=== PATIENT | male | born 1935 | race Caucasian/White ===

== ENCOUNTER → 2016-12-15 | Outpatient (CLI) | payer MEDICARE, OTHER ==
[~2016-12-15] MED LIST: AMBI5TAB PO; AMLO5 PO; ASPI1TAB69 PO; CARD8TAB2 PO; CIPR-9 PO; CLIN1CAP6 PO; LACTCAP8 PO; LATA.005%O EACH EYE; LOTE20TA PO; OMEG600C2; SODI325T PO
[2016-12-15 12:45] LABS: AUTOMATED NEUTROPHIL # 3.9 TH/MM3 (1.8-7.7); BASOPHIL # 0.1 TH/MM3 (0-0.2); BASOPHIL % 1.1 % (0.0-2.0); EOSINOPHIL # 0.3 TH/MM3 (0-0.4); HEMATOCRIT 28.4 % (39.0-51.0); HEMO FLAGS DIFF FINAL; LYMPH % 20.6 % (9.0-44.0); LYMPHOCYTE # 1.2 TH/MM3 (1.0-4.8); MEAN CELL VOLUME 85.3 FL (80.0-100.0); MEAN CORPUSCULAR HEMOGLOBIN 29.7 PG (27.0-34.0); MEAN CORPUSCULAR HGB CONC 34.8 % (32.0-36.0); MONO % 6.5 % (0.0-8.0); NEUT % 66.8 % (16.0-70.0); PLATELET COUNT 200 TH/MM3 (150-450); RED BLOOD COUNT 3.33 MIL/MM3 (4.50-5.90); RED CELL DISTRIBUTION WIDTH 15.5 % (11.6-17.2); WHITE BLOOD COUNT 5.8 TH/MM3 (4.0-11.0)
[2016-12-15 13:15] LABS: ALKALINE PHOSPHATASE 84 U/L (45-117); ALT (GPT) 14 U/L (12-78); ANION GAP 10 MEQ/L (5-15); AST (GOT) 8 U/L (15-37); BICARBONATE 27.5 MEQ/L (21.0-32.0); BLOOD UREA NITROGEN 39 MG/DL (7-18); CHLORIDE 104 MEQ/L (98-107); GLOMERULAR FILTRATION RATE 17 ML/MIN (>89); GLUCOSE,FASTING 133 MG/DL (74-99); POTASSIUM 4.1 MEQ/L (3.5-5.1); SODIUM (NA) 141 MEQ/L (136-145); TOTAL BILIRUBIN ADULT 0.8 MG/DL (0.2-1.0)
[2016-12-15 16:17] LABS: HEMOGLOBIN A1b 0.9 %; HEMOGLOBIN Ao 84.8 %; HEMOGLOBIN F 1.1 %; HEMOGLOBIN LA1C 2.5 %; HEMOGLOBIN P3 5.4 %
== END ==
LOC: PLAB 11:23
PROVIDERS: ATTEND Family Medicine
DX: K80.20 Calculus of gallbladder without cholecystitis without obstruction (principal); I12.9 Hypertensive chronic kidney disease with stage 1 through stage 4 chronic kidney disease, or unspecified chronic kidney disease; N18.4 Chronic kidney disease, stage 4 (severe); K21.9 Gastro-esophageal reflux disease without esophagitis; N13.30 Unspecified hydronephrosis; R73.01 Impaired fasting glucose
CPT/HCPCS: 36415; 80053; 83036; 83695; 84443; 85025

== ENCOUNTER → 2017-01-07 | Outpatient (CLI) | payer MEDICARE, OTHER ==
[2017-01-07 09:05] LABS: BACTERIA, URINE MOD /hpf; BLOOD, URINE MOD (NEG); COMMENT (UR) CULTURE INDICATED; CULTURE IF INDICATED CULTURE INDICATED; GLUCOSE,URINE NEG (NEG); KETONE, URINE NEG (NEG); MUCUS URINE FEW /lpf (OCC); NITRITE,URINE NEG (NEG); PH, URINE 7.5 (5.0-8.5); SQUAMOUS EPITHELIAL CELL URINE 5 /hpf (0-5); URINE COLOR YELLOW (YELLW/STRAW)
[2017-01-07 09:08] LABS: AUTOMATED NEUTROPHIL # 3.9 TH/MM3 (1.8-7.7); BASOPHIL # 0.1 TH/MM3 (0-0.2); BASOPHIL % 1.1 % (0.0-2.0); EOSINOPHIL # 0.3 TH/MM3 (0-0.4); EOSINOPHIL % 4.6 % (0.0-4.0); HEMATOCRIT 27.7 % (39.0-51.0); HEMO FLAGS DIFF FINAL; LYMPH % 21.4 % (9.0-44.0); LYMPHOCYTE # 1.3 TH/MM3 (1.0-4.8); MEAN CELL VOLUME 88.4 FL (80.0-100.0); MEAN CORPUSCULAR HEMOGLOBIN 30.2 PG (27.0-34.0); MEAN CORPUSCULAR HGB CONC 34.2 % (32.0-36.0); MONO % 7.8 % (0.0-8.0); NEUT % 65.1 % (16.0-70.0); PLATELET COUNT 148 TH/MM3 (150-450); RED BLOOD COUNT 3.14 MIL/MM3 (4.50-5.90); RED CELL DISTRIBUTION WIDTH 16.5 % (11.6-17.2)
[2017-01-07 09:29] LABS: ANION GAP 9 MEQ/L (5-15); BICARBONATE 25.9 MEQ/L (21.0-32.0); BLOOD UREA NITROGEN 40 MG/DL (7-18); CHLORIDE 107 MEQ/L (98-107); FERRITIN 144 NG/ML (26-388); GLOMERULAR FILTRATION RATE 16 ML/MIN (>89); GLUCOSE,FASTING 117 MG/DL (74-99); POTASSIUM 4.3 MEQ/L (3.5-5.1); SODIUM (NA) 142 MEQ/L (136-145); TRANSFERRIN IRON PROFILE 189 MG/DL (200-360)
== END ==
LOC: PLAB 06:56
PROVIDERS: ATTEND Internal Medicine Nephrology
DX: E55.9 Vitamin D deficiency, unspecified (principal); N18.4 Chronic kidney disease, stage 4 (severe); D63.1 Anemia in chronic kidney disease; N39.0 Urinary tract infection, site not specified; B96.4 Proteus (mirabilis) (morganii) as the cause of diseases classified elsewhere
CPT/HCPCS: 36415; 80069; 81001; 82306; 82728; 83540; 83550; 83970; 85025; 87077; 87086; 87186

== ENCOUNTER 2017-01-22 23:21 | Inpatient (IN) | payer MEDICARE, OTHER ==
[~2017-01-22] VITALS: Ht 182.9 cm; Wt 90.0 kg
[~2017-01-22 23:21] MED LIST changes: -CIPR-9 PO
[2017-01-22 23:23] VITALS: BP 190/91; PULSE 90; RESP 18; TEMP 99.8; O2SAT 98
[2017-01-22] MEDS ORDERED: SODIUM CHLOR 0.9% 1000 ML INJ 1,000 ML IV SCH (23:35)
[2017-01-22 23:38] VITALS: O2SAT 97
--- NOTE | 2017-01-22 23:43 | PD ---
HPI Chief Complaint: Complaint Time Seen by Provider: 23:27 Travel History International Travel<30 days: No Contact w/Intl Traveler<30days: No Traveled to known affect area: No History of Present Illness HPI The patient is a 81-year-old male who presents emergency department for left mid back pain and left flank pain or last several days. 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 The patient states he had a stent replaced approximately one and a half years ago here at [place] and then had his stents replaced 4 months ago by a urologist on an outpatient basis, Dr. Marie. The patient states over the last several days he's had increasing left mid back pain that radiates to the left flank, however, continues to pass urine without difficulty. The patient recently had outpatient blood work and noted that his GFR and creatinine had worsened, signifying possible renal failure. The patient has been followed by his capacity planning engineer, Dr. Jha, and was advised she may need dialysis in the future. The patient does complain of mild nausea associated with this pain but denies any vomiting or or anterior abdominal pain. He does complain of cloudy urine without any visible hematuria. Patient was treated with antibiotics 2 weeks ago for UTI, however, cannot recall the name. The patient's primary physician is Dr. Jarvis. [facility] Past Medical History Hx Anticoagulant Therapy: Yes Arthritis: Yes Heart Rhythm Problems: No Cancer: Yes (prostate) Cardiovascular Problems: Yes High Cholesterol: No Congestive Heart Failure: No Diabetes: No Diminished Hearing: No Endocrine: No Gastrointestinal Disorders: Yes GERD: Yes Glaucoma: No Genitourinary: Yes Hepatitis: No Hiatal Hernia: Yes Heparin Induced Thrombocytopen: No Hypertension: Yes Immune Disorder: No Inguinal Hernia: Yes (REPAIRED IN 2001.) Implanted Vascular Access Dvce: Yes Musculoskeletal: Yes Neurologic: No Psychiatric: No Reproductive: No Respiratory: Yes (sleep apnea) Renal Failure: Yes (RENAL INSUFF.) Sleep Apnea: Yes (CPAP) Thyroid Disease: No PNEUMOCCOCAL Vaccine (Year): 1 Past Surgical History Abdominal Surgery: Yes (HERNIA REPAIR) Body Medical Devices: artificial sphincter, stents in kidneys Coronary Artery Bypass Graft: No Genitourinary Surgery: Yes (prostatectomy,urniary stent placed several times) Oral Surgery: Yes (uvulectomy) Prostatectomy: Yes (2000) Tonsillectomy: Yes Other Surgery: Yes (shunt lue 10/09/16) Social History Alcohol Use: No Tobacco Use: No (quit long time ago ) Substance Use: No Allergies-Medications (Allergen,Severity, Reaction): Coded Allergies: Sulfa (Verified Allergy, Severe, Nausea/Vomiting, 01/22/17) *MDRO Multi-Drug Resistant Organism (Verified Adverse Reaction, Unknown, ) 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; (blood & urine) - 04/2016 Reported Meds & Prescriptions Reported Meds & Active Scripts Active Probiotic (Lactobacillus Acidophilus) 1 Cap Cap 1 Cap PO TIDAC Clindamycin (Clindamycin HCl) 300 Mg Cap 300 Mg PO Q6H 10 Days Reported Sodium Bicarbonate 325 Mg Tab 325 Mg PO DAILY Xalatan Opth Drops (Latanoprost) 0.005% Drops 1 Drop EACH EYE HS Fish Oil 600 mg ([place]-3 Fatty Acids) 1 Cap Cap DAILY Cardura (Doxazosin Mesylate) 8 Mg Tab 8 Mg PO DAILY Lotensin (Benazepril HCl) 20 Mg Tab 20 Mg PO DAILY Aspirin 81 Mg Tabdr 81 Mg PO DAILY Norvasc (Amlodipine Besylate) 5 Mg Tab 5 Mg PO DAILY Review of Systems Except as stated in HPI: all other systems reviewed are Neg General / Constitutional: No: Fever Cardiovascular: No: Chest Pain or Discomfort Respiratory: No: Shortness of Breath Gastrointestinal: Positive: Nausea, No: Vomiting, Diarrhea, Abdominal Pain Genitourinary: Positive: Flank Pain, No: Dysuria, Decreased Urinary Output Musculoskeletal: No: Weakness Skin: Positive Rash (history of psoriasis) Physical Exam Narrative GENERAL: Awake, alert, nontoxic-appearing 81-year-old male who appears his stated age and is in no acute respiratory distress. SKIN: Warm and dry. Excoriated rash over the left flank. HEAD: Atraumatic. Normocephalic. EYES: No injection or drainage. ENT: No nasal bleeding or discharge. Mucous membranes pink and moist. NECK: Trachea midline. No JVD. CARDIOVASCULAR: Regular, tachycardic with a heart rate of 102. RESPIRATORY: No accessory muscle use. Clear to auscultation. Breath sounds equal bilaterally. GASTROINTESTINAL: Abdomen soft, non-tender, nondistended. No rebound tenderness. Back: Positive for left CVA tenderness. MUSCULOSKELETAL: No obvious deformities. No clubbing. No cyanosis. No edema. NEUROLOGICAL: Awake and alert. No obvious cranial nerve deficits. Motor grossly within normal limits. Normal speech. PSYCHIATRIC: Appropriate mood and affect; insight and judgment normal. Data Data Last Documented VS Vital Signs Date Time Temp Pulse Resp B/P Pulse Ox O2 Delivery O2 Flow Rate FiO2 01/23/17 00:36 83 18 153/70 97 01/22/17 23:38 Room Air 01/22/17 23:23 99.8 Orders Complete Blood Count With Diff (01/22/17 23:35) Comprehensive Metabolic Panel (01/22/17 23:35) Lipase (01/22/17 23:35) Lactic Acid (01/22/17 23:35) Urinalysis - C+S If Indicated (01/22/17 23:35) Ct Abd/Pel W/O Iv Contrast (01/22/17 23:35) Iv Access Insert/Monitor (01/22/17 23:35) Ecg Monitoring (01/22/17 23:35) Oximetry (01/22/17 23:35) Morphine Inj (Morphine Inj) (01/22/17 23:45) Ondansetron Inj (Zofran Inj) (01/22/17 23:45) Sodium Chlor 0.9% 1000 Ml Inj (Ns 1000 M (01/22/17 23:35) Sodium Chloride 0.9% Flush (Ns Flush) (01/22/17 23:45) Urine Culture (01/22/17 23:45) Cefepime Inj (Maxipime Inj) (01/23/17 00:45) Admit Order (Ed Use Only) (01/23/17 01:02) Blood Culture (01/23/17 01:02) Labs Laboratory Tests Test 01/22/17 23:45 White Blood Count 9.5 TH/MM3 Red Blood Count 3.52 MIL/MM3 Hemoglobin 10.5 GM/DL Hematocrit 30.6 % Mean Corpuscular Volume 86.9 FL Mean Corpuscular Hemoglobin 29.9 PG Mean Corpuscular Hemoglobin 34.4 % Concent Red Cell Distribution Width 16.5 % Platelet Count 163 TH/MM3 Mean Platelet Volume 7.6 FL Neutrophils (%) (Auto) 71.2 % Lymphocytes (%) (Auto) 20.4 % Monocytes (%) (Auto) 4.9 % Eosinophils (%) (Auto) 2.6 % Basophils (%) (Auto) 0.9 % Neutrophils # (Auto) 6.8 TH/MM3 Lymphocytes # (Auto) 1.9 TH/MM3 Monocytes # (Auto) 0.5 TH/MM3 Eosinophils # (Auto) 0.3 TH/MM3 Basophils # (Auto) 0.1 TH/MM3 CBC Comment DIFF FINAL Differential Comment Urine Color LIGHT-YELLOW Urine Turbidity HAZY Urine pH 7.0 Urine Specific [place] 1.010 Urine Protein 30 mg/dL Urine Glucose (UA) NEG mg/dL Urine Ketones NEG mg/dL Urine Occult Blood TRACE Urine Nitrite NEG Urine Bilirubin NEG Urine Urobilinogen LESS THAN 2.0 MG/DL Urine Leukocyte Esterase LARGE Urine RBC 5 /hpf Urine WBC /hpf Urine Squamous Epithelial <1 /hpf Cells Urine Transitional Epithelial <1 /hpf Cells Microscopic Urinalysis Comment CULTURE INDICATED Sodium Level 142 MEQ/L Potassium Level 4.1 MEQ/L Chloride Level 109 MEQ/L Carbon Dioxide Level 23.8 MEQ/L Anion Gap 9 MEQ/L Blood Urea Nitrogen 38 MG/DL Creatinine 3.22 MG/DL Estimat Glomerular Filtration 19 ML/MIN Rate Random Glucose 123 MG/DL Lactic Acid Level 0.9 mmol/L Calcium Level 8.9 MG/DL Total Bilirubin 0.7 MG/DL Aspartate Amino Transf 14 U/L (AST/SGOT) Alanine Aminotransferase 15 U/L (ALT/SGPT) Alkaline Phosphatase 83 U/L Total Protein 7.5 GM/DL Albumin 3.9 GM/DL Lipase 259 U/L [facility] Medical Decision Making Medical Screen Exam Complete: Yes Emergency Medical Condition: Yes Medical Record Reviewed: Yes Interpretation(s) Last Impressions Abdomen/Pelvis CT 01/22/17 0615 Signed Impressions: Service Date/Time: Monday, January 23, 2017 00:23 - CONCLUSION: 1. Cholelithiasis. 2. Severe diverticulosis. 3. Moderate left-sided hydronephrosis and mild right hydronephrosis identified with mild perinephric stranding and fluid on the left. 4. No calculi are seen. Cuate Benson MD Laboratory Tests Test 01/22/17 23:45 White Blood Count 9.5 TH/MM3 Red Blood Count 3.52 MIL/MM3 Hemoglobin 10.5 GM/DL Hematocrit 30.6 % Mean Corpuscular Volume 86.9 FL Mean Corpuscular Hemoglobin 29.9 PG Mean Corpuscular Hemoglobin 34.4 % Concent Red Cell Distribution Width 16.5 % Platelet Count 163 TH/MM3 Mean Platelet Volume 7.6 FL Neutrophils (%) (Auto) 71.2 % Lymphocytes (%) (Auto) 20.4 % Monocytes (%) (Auto) 4.9 % Eosinophils (%) (Auto) 2.6 % Basophils (%) (Auto) 0.9 % Neutrophils # (Auto) 6.8 TH/MM3 Lymphocytes # (Auto) 1.9 TH/MM3 Monocytes # (Auto) 0.5 TH/MM3 Eosinophils # (Auto) 0.3 TH/MM3 Basophils # (Auto) 0.1 TH/MM3 CBC Comment DIFF FINAL Differential Comment Urine Color LIGHT-YELLOW Urine Turbidity HAZY Urine pH 7.0 Urine Specific [place] 1.010 Urine Protein 30 mg/dL Urine Glucose (UA) NEG mg/dL Urine Ketones NEG mg/dL Urine Occult Blood TRACE Urine Nitrite NEG Urine Bilirubin NEG Urine Urobilinogen LESS THAN 2.0 MG/DL Urine Leukocyte Esterase LARGE Urine RBC 5 /hpf Urine WBC /hpf Urine Squamous Epithelial <1 /hpf Cells Urine Transitional Epithelial <1 /hpf Cells Microscopic Urinalysis Comment CULTURE INDICATED Sodium Level 142 MEQ/L Potassium Level 4.1 MEQ/L Chloride Level 109 MEQ/L Carbon Dioxide Level 23.8 MEQ/L Anion Gap 9 MEQ/L Blood Urea Nitrogen 38 MG/DL Creatinine 3.22 MG/DL Estimat Glomerular Filtration 19 ML/MIN Rate Random Glucose 123 MG/DL Lactic Acid Level 0.9 mmol/L Calcium Level 8.9 MG/DL Total Bilirubin 0.7 MG/DL Aspartate Amino Transf 14 U/L (AST/SGOT) Alanine Aminotransferase 15 U/L (ALT/SGPT) Alkaline Phosphatase 83 U/L Total Protein 7.5 GM/DL Albumin 3.9 GM/DL Lipase 259 U/L Differential Diagnosis Differential diagnosis includes obstructive uropathy, complicated urinary tract infection, pyelonephritis, acute on chronic renal failure, dehydration, electrolyte abnormality, nephrolithiasis. Narrative Course IV was established, labs were drawn and sent, and the patient was placed on cardiac telemetry monitoring and continuous pulse oximetry monitoring. The patient was administer morphine, Zofran, and IV fluids for his symptoms. UA was sent to lab. I reviewed the EMR, patient had lab work 3 weeks ago which revealed a GFR of 16 and creatinine at 3.67. The patient's urine culture from 2 weeks ago grew Proteus for years that was resistant to ceftriaxone. The patient's UA reveals innumerable WBCs, he just finished antibiotics last week for UTI, appears to have failed outpatient therapy. Based on patient's previous micro-results, patient was administered cefepime 2 g intravenously. Patient does have chronic renal failure with underlying infection, will be admitted for IV antibiotics and evaluation by nephrology and possible urology as he does have bilateral stents in place. The patient's primary physician is Dr. Jarvis, therefore, [facility]. CT does reveal perinephric standing in the left with hydronephrosis and clearly infected urine. The patient has stents in place, will need IV antibiotics and urology consultation. The patient is comfortable with this plan of care and disposition. Physician Communication Physician Communication [facility]. Diagnosis Primary Impression: Pyelonephritis Additional Impression: Chronic renal failure Qualified Code: N18.9 - Chronic renal failure, unspecified stage Admitting Information Admitting Physician Requests: Admit Condition: Stable David Sawnn MD Jan 22, 2017 23:42
[2017-01-22] MEDS ORDERED: MORPHINE SULFATE 4 MG/ML INJ IV PUSH ONE (23:45)
[2017-01-22] MEDS ORDERED: ONDANSETRON HCL 4 MG/2 ML VIAL IVP ONE (23:45)
[2017-01-22] MEDS ORDERED: SODIUM CHLORIDE 0.9% FLUSH 5 ML FLUSH IVF PRN (23:45)
[2017-01-22 23:58] LABS: AUTOMATED NEUTROPHIL # 6.8 TH/MM3 (1.8-7.7); BASOPHIL # 0.1 TH/MM3 (0-0.2); BASOPHIL % 0.9 % (0.0-2.0); EOSINOPHIL # 0.3 TH/MM3 (0-0.4); EOSINOPHIL % 2.6 % (0.0-4.0); HEMATOCRIT 30.6 % (39.0-51.0); HEMO FLAGS DIFF FINAL; LYMPH % 20.4 % (9.0-44.0); LYMPHOCYTE # 1.9 TH/MM3 (1.0-4.8); MEAN CELL VOLUME 86.9 FL (80.0-100.0); MEAN CORPUSCULAR HEMOGLOBIN 29.9 PG (27.0-34.0); MEAN CORPUSCULAR HGB CONC 34.4 % (32.0-36.0); MONO % 4.9 % (0.0-8.0); NEUT % 71.2 % (16.0-70.0); PLATELET COUNT 163 TH/MM3 (150-450); RED BLOOD COUNT 3.52 MIL/MM3 (4.50-5.90); RED CELL DISTRIBUTION WIDTH 16.5 % (11.6-17.2); WHITE BLOOD COUNT 9.5 TH/MM3 (4.0-11.0)
[2017-01-23 00:16] LABS: BLOOD, URINE TRACE (NEG); COMMENT (UR) CULTURE INDICATED; CULTURE IF INDICATED CULTURE INDICATED; GLUCOSE,URINE NEG (NEG); KETONE, URINE NEG (NEG); NITRITE,URINE NEG (NEG); SQUAMOUS EPITHELIAL CELL URINE <1 /hpf (0-5); TRANSITIONAL EPI CELLS, URINE <1 /hpf; URINE COLOR LIGHT-YELLOW (YELLW/STRAW)
[2017-01-23 00:20] LABS: ALT (GPT) 15 U/L (12-78); ANION GAP 9 MEQ/L (5-15); AST (GOT) 14 U/L (15-37); BICARBONATE 23.8 MEQ/L (21.0-32.0); BLOOD UREA NITROGEN 38 MG/DL (7-18); CHLORIDE 109 MEQ/L (98-107); GLOMERULAR FILTRATION RATE 19 ML/MIN (>89); POTASSIUM 4.1 MEQ/L (3.5-5.1); SODIUM (NA) 142 MEQ/L (136-145)
[2017-01-23 00:22] LABS: ALKALINE PHOSPHATASE 83 U/L (45-117); TOTAL BILIRUBIN ADULT 0.7 MG/DL (0.2-1.0)
[2017-01-23 00:36] VITALS: BP 153/70; PULSE 83; RESP 18; O2SAT 97
[2017-01-23] MEDS ORDERED: CEFEPIME INJ 2,000 MG in SODIUM CHLORIDE 0.9% INJ 100 ML IV ONE (00:45)
--- NOTE | 2017-01-23 00:45 | RADRPT ---
EXAM DATE/TIME: 01/23/2017 00:23 [place] COMPARISON: CT ABDOMEN & PELVIS W/O CONTRAST, May 13, 2016, 13:16. INDICATIONS : Left flank pain. ORAL CONTRAST: No oral contrast ingested. RADIATION DOSE: 14.61 CTDIvol (mGy) MEDICAL HISTORY : Hydronephrosis. SURGICAL HISTORY : Stents ENCOUNTER: Initial ACUITY: 1 day PAIN SCALE: 8/10 LOCATION: Left flank TECHNIQUE: Volumetric scanning of the abdomen and pelvis was performed. Using automated exposure control and ad justment of the mA and/or kV according to patient size, radiation dose was kept as low as reasonably achievable to obtain optimal diagnostic quality images. FINDINGS: Calcified hepatic and splenic granulomas are noted. A moderate-sized hiatal hernia is present. The ad renal glands are normal. There are bilateral nephroureteral stents present with mild hydroureter bila terally, and the moderate hydronephrosis on the left. There is mild perinephric stranding present on the left. There are no renal calculi identified. No bladder calculi are seen. Atherosclerotic calcifi cations of the aorta and iliac vessels are seen. The pancreas is normal. A penile implantation device is noted with reservoir adjacent to the urinary bladder on the right. There is extensive diverticulo sis of the sigmoid and descending colon as well as transverse and descending colon without diverticul itis. No adenopathy or aneurysm. The gallbladder is filled with stones. Degenerative changes of the s pine are noted. There is scarring at the lung bases. CONCLUSION: 1. Cholelithiasis. 2. Severe diverticulosis. 3. Moderate left-sided hydronephrosis and mild right hydronephrosis identified with mild perinephric stranding and fluid on the left. 4. No calculi are seen. Cuate Benson MD on January 23, 2017 at 0:40 Board Certified Radiologist. This report was verified electronically.
[2017-01-23] MEDS ORDERED: ONDANSETRON HCL 4 MG/2 ML VIAL IVP PRN (01:15)
[2017-01-23] MEDS ORDERED: BISACODYL 10 MG SUPP PR PRN (01:15)
[2017-01-23] MEDS ORDERED: MORPHINE SULFATE 4 MG/ML INJ IV PRN (01:15)
[2017-01-23] MEDS ORDERED: ACETAMINOPHEN 325 MG TAB PO PRN (01:15)
[2017-01-23] MEDS ORDERED: SODIUM CHLORIDE 0.9% FLUSH 5 ML FLUSH FLUSH PRN (01:15)
[2017-01-23] MEDS ORDERED: ACETAMINOPHEN/HYDROcodone 325 MG/5 MG TAB PO PRN (01:15)
--- NOTE | 2017-01-23 01:42 | HHI.HP ---
HPI Service [facility] Primary Care Physician Jeff Jarvis MD Admission Diagnosis pyelonephritis, chronic renal failure, failed outpatient therapy Diagnoses: (1) UTI (urinary tract infection) Diagnosis: Principal (2) Failure of outpatient treatment Diagnosis: Principal (3) Pyelonephritis Diagnosis: Principal (4) Hydronephrosis Diagnosis: Principal (5) CKD (chronic kidney disease) stage 4, GFR 15-29 ml/min Diagnosis: Principal Travel History International Travel<30 Days: No Contact w/Intl Traveler <30 Da: No Traveled to Known Affected Are: No History of Present Illness This is an 81-year-old male with a PMH of HTN, Prostate CA, CKD Stage IV, Obstructive Uropathy s/p Stent and Sleep Apnea who presented to the ER w/ complaints of left flank pain x3-4 days. States symptoms similar to previous episodes of renal stones. S/p Ureteral Stent placement approx 10yrs ago w/ replacement [address] Marie and has been doing well up until 2wks ago. Diagnoses w/ UTI at that time and started on antibiotics, had transient improvement after antibiotics, however has had recurrent and worsening left flank pain x4 days. Denies fever, chills, nausea, vomiting or diarrhea. CT Abd /Pelvis w/ cholelithiasis, diverticulosis, moderate left hydronephrosis and mild right hydronephrosis w/ mild perinephric stranding. Urine Cultures from 01/07/17 +Proteus, Resistant to Rocephin, Sensitive to Cefepime, s/p Cefepime 2gm in ER and Blood Cultures. Follows w/ Dr. Jha w/ Nephrology for CKD. Review of Systems Except as stated in HPI: all other systems reviewed are Neg ROS: 14 point review of systems otherwise negative. Past Family Social History Past Medical History PMH: HTN, Prostate CA, CKD Stage IV, Obstructive Uropathy s/p Stent and Sleep Apnea Past Surgical History PAST SURGICAL HISTORY: Hernia Repair,. 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 No h/o DM or CAD Social History PAST SOCIAL HISTORY: Negative for alcohol, tobacco or drugs. Physical Exam Vital Signs Vital Signs Date Time Temp Pulse Resp B/P Pulse Ox O2 Delivery O2 Flow Rate FiO2 01/23/17 00:36 83 18 153/70 97 01/22/17 23:38 97 Room Air 01/22/17 23:23 99.8 90 18 190/91 98 Physical Exam PE: GENERAL: Pleasant elderly male in no acute distress. HEENT: PERRLA, EOMI. No scleral icterus or conjunctival pallor. No lid lag or facial droop. CARDIOVASCULAR: Regular rate and rhythm. No obvious murmurs to auscultation. No chest tenderness to palpation. RESPIRATORY: No obvious rhonchi or wheezing. Clear to auscultation. Breath sounds equal bilaterally. GASTROINTESTINAL: Abdomen soft, non-tender, nondistended. BS normal. Left flank tenderness MUSCULOSKELETAL: Extremities without clubbing, cyanosis, or edema. No obvious deformities. NEUROLOGICAL: Awake, alert and oriented x4. No focal neurologic deficits. Moving both upper and lower extremities spontaneously. Laboratory Laboratory Tests Test 01/22/17 23:45 White Blood Count 9.5 Red Blood Count 3.52 Hemoglobin 10.5 Hematocrit 30.6 Mean Corpuscular Volume 86.9 Mean Corpuscular Hemoglobin 29.9 Mean Corpuscular Hemoglobin 34.4 Concent Red Cell Distribution Width 16.5 Platelet Count 163 Mean Platelet Volume 7.6 Neutrophils (%) (Auto) 71.2 Lymphocytes (%) (Auto) 20.4 Monocytes (%) (Auto) 4.9 Eosinophils (%) (Auto) 2.6 Basophils (%) (Auto) 0.9 Neutrophils # (Auto) 6.8 Lymphocytes # (Auto) 1.9 Monocytes # (Auto) 0.5 Eosinophils # (Auto) 0.3 Basophils # (Auto) 0.1 CBC Comment DIFF FINAL Differential Comment Urine Color LIGHT-YELLOW Urine Turbidity HAZY Urine pH 7.0 Urine Specific [place] 1.010 Urine Protein 30 Urine Glucose (UA) NEG Urine Ketones NEG Urine Occult Blood TRACE Urine Nitrite NEG Urine Bilirubin NEG Urine Urobilinogen LESS THAN 2.0 Urine Leukocyte Esterase LARGE Urine RBC 5 Urine WBC Urine Squamous Epithelial <1 Cells Urine Transitional Epithelial <1 Cells Microscopic Urinalysis Comment CULTURE INDICATED Sodium Level 142 Potassium Level 4.1 Chloride Level 109 Carbon Dioxide Level 23.8 Anion Gap 9 Blood Urea Nitrogen 38 Creatinine 3.22 Estimat Glomerular Filtration 19 Rate Random Glucose 123 Lactic Acid Level 0.9 Calcium Level 8.9 Total Bilirubin 0.7 Aspartate Amino Transf 14 (AST/SGOT) Alanine Aminotransferase 15 (ALT/SGPT) Alkaline Phosphatase 83 Total Protein 7.5 Albumin 3.9 Lipase 259 Date/Time Procedure Status Source Growth 01/22/17 23:45 Urine Culture Received Urine Clean Catch Pending Result Diagram: 01/22/175 01/22/175 Assessment and Plan Problem List: (1) UTI (urinary tract infection) ICD Code: N39.0 Status: Acute (2) Failure of outpatient treatment ICD Code: Z78.9 Status: Acute (3) Hydronephrosis ICD Code: N13.30 Status: Acute (4) Pyelonephritis ICD Code: N12 Status: Acute (5) CKD (chronic kidney disease) stage 4, GFR 15-29 ml/min ICD Code: N18.4 Status: Acute Assessment and Plan A/P: 1. UTI: U/a w/ UTI, recurrent UTI s/p outpatient antibiotics, failed outpatient therapy. Afebrile, no leukocytosis. S/p Blood/Urine Cultures. S/p Cefepime in ER, will continue w/ IV Abx, IVF for hydration, repeat labs in am. 2. Pyelonephritis: CT Abd/Pelvis w/ perinephric stranding consistent w/ pyelonephritis, images reviewed by me. S/p IV Abx as above, will continue. 3. Hydronephrosis: Bilateral. H/o Obstructive Uropathy s/p Stent Placement and Replacement [address] Marie. Bilateral hydronephrosis on CT. Will consult Dr. Marie for further eval. Afebrile, no leukocytosis. 4. CKD: Stage IV. Follows w/ Dr. Jha as outpatient. Creatinine 3.22, previously 3.67 on 01/07/17. Hold Benazepril/ASA. Repeat labs in am. Consult Nephrology for further recommendations. 5. DVT Prophylaxis: SCD/Teds. 6. Social work for d/c planning as needed. 7. Case discussed w/ ER physician at length. Physician Certification 2 Midnight Certification Type: Admission for Inpatient Services Order for Inpatient Services The services are ordered in accordance with Medicare regulations or non- Medicare payer requirements, as applicable. In the case of services not specified as inpatient-only, they are appropriately provided as inpatient services in accordance with the 2-midnight benchmark. Estimated LOS (days): 2 days is the estimated time the patient will need to remain in the hospital, assuming treatment plan goals are met and no additional complications. Post-Hospital Plan: Not yet determined Ivelisse Fulton MD Jan 23, 2017 01:42
[2017-01-23] MEDS: SODIUM CHLOR 0.9% 1000 ML INJ 1,000 ML IV SCH ×3 (02:04→21:58)
[2017-01-23 04:15] VITALS: BP 147/70; PULSE 87; RESP 18; TEMP 96.9; O2SAT 98
[2017-01-23 08:00] VITALS: BP 142/66; PULSE 85; RESP 14; TEMP 97.5; O2SAT 98
[2017-01-23] MEDS: SODIUM CHLORIDE 0.9% FLUSH 5 ML FLUSH FLUSH SCH ×2 (09:00→21:00)
[2017-01-23] MEDS: amLODIPine BESYLATE 5 MG TAB PO SCH (10:18)
[2017-01-23] MEDS: LACTOBACILLUS ACIDOPHILUS TAB PO SCH ×3 (10:18→18:29)
[2017-01-23] MEDS: DOXAZOSIN MESYLATE 4 MG TAB PO SCH (10:18)
--- NOTE | 2017-01-23 11:25 | PD.CONS ---
HPI Consult Requested By Reason for Consult Chronic kidney disease stage IV Primary Care Physician Jeff Jarvis MD History of Present Illness This patient is an 81-year-old male well-known to me from my office who has a history of known CKD stage IV. Patient was being prepared for dialysis with placement of an AV dialysis fistula. Patient also has a history of recurrent obstructive uropathy and presently has [address] Now presents to the hospital with a history of left flank pain and subsequently has been diagnosed as having a urinary tract infection. CT scan revealed bilateral hydronephrosis mild on the right while moderate on the left with evidence of left-sided perinephric stranding. Urology consultation is currently pending. Patient's baseline creatinine level ranging between 3.0 and 3.5. Patient indicated to me that he was feeling somewhat better admission. 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 History of prostatic CA. Sleep apnea Anemia CKD. Hypertension. Past Surgical History Placement of an upper extremity AV fistula in preparation for dialysis. Multiple cystoscopies with urological procedures. Reported Medications Reported Meds & Active Scripts Active Probiotic (Lactobacillus Acidophilus) 1 Cap Cap 1 Cap PO TIDAC Clindamycin (Clindamycin HCl) 300 Mg Cap 300 Mg PO Q6H 10 Days Reported Sodium Bicarbonate 325 Mg Tab 325 Mg PO DAILY Xalatan Opth Drops (Latanoprost) 0.005% Drops 1 Drop EACH EYE HS Fish Oil 600 mg ([place]-3 Fatty Acids) 1 Cap Cap DAILY Cardura (Doxazosin Mesylate) 8 Mg Tab 8 Mg PO DAILY Lotensin (Benazepril HCl) 20 Mg Tab 20 Mg PO DAILY Aspirin 81 Mg Tabdr 81 Mg PO DAILY Norvasc (Amlodipine Besylate) 5 Mg Tab 5 Mg PO DAILY Active Ordered Medications Current Medications Morphine Sulfate (Morphine Inj) 4 mg ONCE ONCE IV PUSH Last administered on t 23:50; Start 01/22/17 at 23:45; Stop 01/22/17 at 23:46; Status DC Ondansetron HCl 4 mg 4 mg ONCE ONCE IVP Last administered on 01/22/17 23:50; Start 01/22/17 at 23:45; Stop 01/22/17 at 23:46; Status DC Sodium Chloride (NS 1000 ml Inj) 1,000 ml @ 1,000 mls/hr Q1H IV Last administered on 01/22/17 23:50; Start 01/22/17 at 23:35; Stop 01/23/17 at 00:34 ; Status DC IV Flush 2 ml 2 ml UNSCH PRN IVF FLUSH AFTER USING IV ACCESS; Start 01/22/17 at 23:45; Stop 01/23/17 at 01:21; Status DC Cefepime HCl 2000 mg/Sodium Chloride 100 ml @ 200 mls/hr ONCE ONCE IV Last administered on 01/23/17 02:04; Start 01/23/17 at 00:45; Stop 01/23/17 at 01:17 ; Status DC Cefepime HCl 1000 mg/Sodium Chloride 100 ml @ 200 mls/hr Q24H IV ; Start at 01:00 Sodium Chloride (NS 1000 ml Inj) 1,000 ml @ 100 mls/hr Q10H IV Last administered on 01/23/17 10:21; Start 01/23/17 at 01:02 IV Flush (NS Flush) 2 ml UNSCH PRN FLUSH FLUSH AFTER USING IV ACCESS; Start at 01:15 IV Flush (NS Flush) 2 ml BID FLUSH ; Start 01/23/17 at 09:00 Ondansetron HCl (Zofran Inj) 4 mg Q6H PRN IVP NAUSEA OR VOMITING; Start at 01:15 Bisacodyl (Dulcolax Supp) 10 mg DAILY PRN DE CONSTIPATION; Start 01/23/17 at 01 :15 Acetaminophen (Tylenol) 650 mg Q6H PRN PO FEVER/PAIN SCALE 1 TO 2; Start at 01:15 Acetaminophen/ Hydrocodone Bitart ([place] 5-325 Mg) 1 tab Q4H PRN PO PAIN SCALE 3 TO 5; Start 01/23/17 at 01:15 Morphine Sulfate (Morphine Inj) 2 mg Q3H PRN IV Pain 6-10; Start 01/23/17 at 01 :15 Amlodipine Besylate (Norvasc) 5 mg DAILY PO Last administered on 01/23/17 10: 18; Start 01/23/17 at 09:00 Doxazosin Mesylate (Cardura) 8 mg DAILY PO Last administered on 01/23/17 10:18 ; Start 01/23/17 at 09:00 Lactobacillus Acidophilus (Lactinex) 1 tab TIDAC PO Last administered on 10:18; Start 01/23/17 at 08:00 Latanoprost (Xalatan 0.005% Opt Soln) 1 drop HS EACH EYE ; Start 01/23/17 at 21 :00 Family History Noncontributory to current complaint. Social History No history of illicit drug use. Physical Exam Vital Signs Vital Signs Date Time Temp Pulse Resp B/P Pulse Ox O2 Delivery O2 Flow Rate FiO2 01/23/17 08:00 97.5 85 14 142/66 98 01/23/17 04:15 96.9 87 18 147/70 98 01/23/17 00:36 83 18 153/70 97 01/22/17 23:38 97 Room Air 01/22/17 23:23 99.8 90 18 190/91 98 Physical Exam GENERAL: Patient appears to be well-nourished and not in respiratory distress. SKIN: Warm and dry. HEAD: Normocephalic. EYES: No scleral icterus. No injection or drainage. NECK: Supple, trachea midline. No JVD or lymphadenopathy. CARDIOVASCULAR: Regular rate and rhythm without murmurs, gallops, or rubs. RESPIRATORY: Breath sounds equal bilaterally. No accessory muscle use. GASTROINTESTINAL: Abdomen soft, non-tender, nondistended. MUSCULOSKELETAL: No cyanosis, or edema. AV dialysis fistula in has a very good bruit and thrill. Intact. BACK: Nontender without obvious deformity. No CVA tenderness. Laboratory Laboratory Tests Test 01/22/17 23:45 White Blood Count 9.5 Red Blood Count 3.52 Hemoglobin 10.5 Hematocrit 30.6 Mean Corpuscular Volume 86.9 Mean Corpuscular Hemoglobin 29.9 Mean Corpuscular Hemoglobin 34.4 Concent Red Cell Distribution Width 16.5 Platelet Count 163 Mean Platelet Volume 7.6 Neutrophils (%) (Auto) 71.2 Lymphocytes (%) (Auto) 20.4 Monocytes (%) (Auto) 4.9 Eosinophils (%) (Auto) 2.6 Basophils (%) (Auto) 0.9 Neutrophils # (Auto) 6.8 Lymphocytes # (Auto) 1.9 Monocytes # (Auto) 0.5 Eosinophils # (Auto) 0.3 Basophils # (Auto) 0.1 CBC Comment DIFF FINAL Differential Comment Urine Color LIGHT-YELLOW Urine Turbidity HAZY Urine pH 7.0 Urine Specific [place] 1.010 Urine Protein 30 Urine Glucose (UA) NEG Urine Ketones NEG Urine Occult Blood TRACE Urine Nitrite NEG Urine Bilirubin NEG Urine Urobilinogen LESS THAN 2.0 Urine Leukocyte Esterase LARGE Urine RBC 5 Urine WBC Urine Squamous Epithelial <1 Cells Urine Transitional Epithelial <1 Cells Microscopic Urinalysis Comment CULTURE INDICATED Sodium Level 142 Potassium Level 4.1 Chloride Level 109 Carbon Dioxide Level 23.8 Anion Gap 9 Blood Urea Nitrogen 38 Creatinine 3.22 Estimat Glomerular Filtration 19 Rate Random Glucose 123 Lactic Acid Level 0.9 Calcium Level 8.9 Total Bilirubin 0.7 Aspartate Amino Transf 14 (AST/SGOT) Alanine Aminotransferase 15 (ALT/SGPT) Alkaline Phosphatase 83 Total Protein 7.5 Albumin 3.9 Lipase 259 Date/Time Procedure Status Source Growth 01/23/17 01:30 Aerobic Blood Culture Received Blood Peripheral Pending 01/23/17 01:30 Anaerobic Blood Culture Received Blood Peripheral Pending 01/22/17 23:45 Urine Culture Received Urine Clean Catch Pending Result Diagram: 01/22/17 2345 01/22/17 2345 Imaging Last 48 hours Impressions Abdomen/Pelvis CT 01/22/17 2335 Signed Impressions: Service Date/Time: Monday, January 23, 2017 00:23 - CONCLUSION: 1. Cholelithiasis. 2. Severe diverticulosis. 3. Moderate left-sided hydronephrosis and mild right hydronephrosis identified with mild perinephric stranding and fluid on the left. 4. No calculi are seen. Cuate Benson MD Assessment and Plan Problem List: (1) CKD (chronic kidney disease) stage 4, GFR 15-29 ml/min Plan: Despite the fact that the patient appears to have a pyelonephritis with some evidence of hydronephrosis on imaging study his creatinine level is actually at baseline. There is no indication that the patient has presently a significant decline in renal function and there is no indication to initiate dialysis presently. The patient will be seen intermittently during this hospitalization. Management currently is primarily urological. We'll defer antibiotic treatment to primary care physician. Medications should be adjusted for the patient's estimated GFR if clinically indicated. Avoid agents with significant potential for nephrotoxicity possible including NSAIDs for analgesia, iodine contrast agents. Gadolinium is contraindicated if the GFR is below 30. (2) Hypertension Plan: Continue current hypertensive medications. (3) Hydronephrosis Plan: Management per urology. (4) Pyelonephritis Plan: Defer antibiotic therapy to primary care physician. Piyush Jha MD Jan 23, 2017 11:25
[2017-01-23 12:00] VITALS: BP_SYST 137; BP_SYST 190; BP_DIAS 63; BP_DIAS 82; PULSE 94; RESP 16; TEMP 97.2; O2SAT 97
[2017-01-23 16:00] VITALS: BP 143/64; PULSE 86; RESP 16; TEMP 98.7; O2SAT 98
--- NOTE | 2017-01-23 16:59 | HHI.PR ---
Addendum to Inpatient Note Additional Information Patient seen and examined blood pressure elevated, reviewed BMP, creatinine elevated, awaiting urology nephrology consultation Salomon Jackson MD Jan 23, 2017 16:58
[2017-01-23 20:00] VITALS: BP 136/67; PULSE 88; RESP 20; TEMP 98.8; O2SAT 97
[2017-01-23] MEDS: LATANOPROST 0.005% OPHT SOLN 2.5 ML BTL EACH EYE SCH (21:58)
[2017-01-24] VITALS: BP 132/63; PULSE 84; RESP 20; TEMP 99.1; O2SAT 97
[2017-01-24] MEDS: CEFEPIME INJ 1,000 MG in SODIUM CHLORIDE 0.9% INJ 100 ML IV SCH (02:08)
[2017-01-24 04:54] LABS: AUTOMATED NEUTROPHIL # 5.7 TH/MM3 (1.8-7.7); BASOPHIL % 0.6 % (0.0-2.0); EOSINOPHIL # 0.2 TH/MM3 (0-0.4); EOSINOPHIL % 2.3 % (0.0-4.0); HEMATOCRIT 24.6 % (39.0-51.0); HEMO FLAGS DIFF FINAL; LYMPH % 17.9 % (9.0-44.0); LYMPHOCYTE # 1.4 TH/MM3 (1.0-4.8); MEAN CORPUSCULAR HEMOGLOBIN 30.4 PG (27.0-34.0); MEAN CORPUSCULAR HGB CONC 34.6 % (32.0-36.0); MONO % 7.9 % (0.0-8.0); NEUT % 71.3 % (16.0-70.0); PLATELET COUNT 123 TH/MM3 (150-450); RED BLOOD COUNT 2.79 MIL/MM3 (4.50-5.90); RED CELL DISTRIBUTION WIDTH 16.9 % (11.6-17.2)
[2017-01-24 05:17] LABS: ALKALINE PHOSPHATASE 58 U/L (45-117); ALT (GPT) 11 U/L (12-78); ANION GAP 9 MEQ/L (5-15); AST (GOT) 8 U/L (15-37); BICARBONATE 22.1 MEQ/L (21.0-32.0); BLOOD UREA NITROGEN 32 MG/DL (7-18); CHLORIDE 111 MEQ/L (98-107); GLOMERULAR FILTRATION RATE 19 ML/MIN (>89); POTASSIUM 4.1 MEQ/L (3.5-5.1); SODIUM (NA) 142 MEQ/L (136-145); TOTAL BILIRUBIN ADULT 0.8 MG/DL (0.2-1.0)
[2017-01-24 08:00] VITALS: BP 150/68; PULSE 87; RESP 17; TEMP 96.8; O2SAT 97
[2017-01-24] MEDS: amLODIPine BESYLATE 5 MG TAB PO SCH (08:13)
[2017-01-24] MEDS: DOXAZOSIN MESYLATE 4 MG TAB PO SCH (08:13)
[2017-01-24] MEDS: SODIUM CHLOR 0.9% 1000 ML INJ 1,000 ML IV SCH ×2 (08:13→17:02)
[2017-01-24] MEDS: LACTOBACILLUS ACIDOPHILUS TAB PO SCH ×3 (08:13→16:18)
[2017-01-24] MEDS: SODIUM CHLORIDE 0.9% FLUSH 5 ML FLUSH FLUSH SCH ×2 (08:14→20:44)
[2017-01-24 12:00] VITALS: BP 148/60; PULSE 88; RESP 17; TEMP 97.3; O2SAT 98
--- NOTE | 2017-01-24 13:05 | HHI.PR ---
Subjective Remarks Follow-up UTI/pyelonephritis/CKD 01/24/17-patient seen and examined; denies any back pain, dysuria. Currently stable. Family by the bedside Objective Vitals Vital Signs Date Time Temp Pulse Resp B/P Pulse Ox O2 Delivery O2 Flow Rate FiO2 01/24/17 12:00 97.3 88 17 148/60 98 01/24/17 08:00 96.8 87 17 150/68 97 01/24/17 00:00 99.1 84 20 132/63 97 01/23/17 20:00 98.8 88 20 136/67 97 01/23/17 16:00 98.7 86 16 143/64 98 I/O 01/23/17 01/23/17 01/23/17 01/24/17 01/24/17 01/24/17 07:00 15:00 23:00 07:00 15:00 23:00 Intake Total 308 ml 500 ml 2273 ml 240 ml 839 ml Output Total 300 ml Balance 308 ml 200 ml 2273 ml 240 ml 839 ml Intake Oral 240 ml 500 ml 480 ml 240 ml IV Total 68 ml 1793 ml 839 ml Output Urine Total 300 ml # Voids 1 2 2 1 Result Diagram: 01/24/17 0425 01/24/17 0425 Imaging Last Impressions Abdomen/Pelvis CT 01/22/175 Signed Impressions: Service Date/Time: Monday, January 23, 2017 00:23 - CONCLUSION: 1. Cholelithiasis. 2. Severe diverticulosis. 3. Moderate left-sided hydronephrosis and mild right hydronephrosis identified with mild perinephric stranding and fluid on the left. 4. No calculi are seen. Cuate Benson MD Objective Remarks GENERAL: NAD SKIN: Warm and dry. HEAD: Normocephalic. EYES: No scleral icterus. No injection or drainage. NECK: Supple, trachea midline. No JVD or lymphadenopathy. CARDIOVASCULAR: Regular rate and rhythm without murmurs, gallops, or rubs. RESPIRATORY: Breath sounds equal bilaterally. No accessory muscle use. GASTROINTESTINAL: Abdomen soft, non-tender, nondistended. MUSCULOSKELETAL: No cyanosis, or edema. BACK: Nontender without obvious deformity. No CVA tenderness. A/P Problem List: (1) UTI (urinary tract infection) ICD Code: N39.0 Status: Acute (2) Failure of outpatient treatment ICD Code: Z78.9 Status: Acute (3) Hydronephrosis ICD Code: N13.30 Status: Acute (4) Pyelonephritis ICD Code: N12 Status: Acute (5) CKD (chronic kidney disease) stage 4, GFR 15-29 ml/min ICD Code: N18.4 Status: Acute Assessment and Plan 81-year-old male with 1. UTI: U/a w/ UTI, recurrent UTI s/p outpatient antibiotics, failed outpatient therapy. S/p Blood/Urine Cultures. on Cefepime, IVF for hydration. 2. Pyelonephritis: CT Abd/Pelvis w/ perinephric stranding consistent w/ pyelonephriti. S/p IV Abx as above, will continue. 3. Hydronephrosis: Bilateral. H/o Obstructive Uropathy s/p Stent Placement and Replacement [address] Marie. Bilateral hydronephrosis on CT. urology consultation pending. 4. CKD: Stage IV. Renal function currently stable, appreciate input from nephrology. 5. DVT Prophylaxis: SCD/Teds. Asif Esquivel MD Jan 24, 2017 13:05
[2017-01-24 15:00] VITALS: BP 139/65; PULSE 86; RESP 17; TEMP 97.8; O2SAT 98
[2017-01-24 20:00] VITALS: BP 156/67; PULSE 91; RESP 20; TEMP 98.3; O2SAT 97
[2017-01-24] MEDS: LATANOPROST 0.005% OPHT SOLN 2.5 ML BTL EACH EYE SCH (20:44)
[2017-01-25] VITALS: BP 146/69; PULSE 86; RESP 20; TEMP 97.6; O2SAT 96
[2017-01-25] MEDS: CEFEPIME INJ 1,000 MG in SODIUM CHLORIDE 0.9% INJ 100 ML IV SCH (00:57)
[2017-01-25] MEDS: SODIUM CHLOR 0.9% 1000 ML INJ 1,000 ML IV SCH ×2 (04:57→13:02)
[2017-01-25 08:00] VITALS: BP 151/68; PULSE 80; RESP 17; TEMP 96.6; O2SAT 95
[2017-01-25] MEDS: LACTOBACILLUS ACIDOPHILUS TAB PO SCH ×3 (08:00→17:00)
[2017-01-25] MEDS: amLODIPine BESYLATE 5 MG TAB PO SCH (09:00)
[2017-01-25] MEDS: SODIUM CHLORIDE 0.9% FLUSH 5 ML FLUSH FLUSH SCH ×2 (09:00→19:51)
[2017-01-25] MEDS: DOXAZOSIN MESYLATE 4 MG TAB PO SCH (09:00)
--- NOTE | 2017-01-25 10:13 | HHI.PR ---
Subjective Remarks Follow-up UTI/pyelonephritis/CKD 01/24/17-patient seen and examined; denies any back pain, dysuria. Currently stable. Family by the bedside 01/25/17-patient seen and examined, reports good urine output without any gross hematuria ; denies any flank pain. Currently afebrile Objective Vitals Vital Signs Date Time Temp Pulse Resp B/P Pulse Ox O2 Delivery O2 Flow Rate FiO2 01/25/17 08:00 96.6 80 17 151/68 95 01/25/17 00:00 97.6 86 20 146/69 96 01/24/17 20:00 98.3 91 20 156/67 97 01/24/17 15:00 97.8 86 17 139/65 98 01/24/17 12:00 97.3 88 17 148/60 98 I/O 01/24/17 01/24/17 01/24/17 01/25/17 01/25/17 01/25/17 07:00 15:00 23:00 07:00 15:00 23:00 Intake Total 240 ml 1079 ml 596 ml 971 ml Output Total 800 ml Balance 240 ml 279 ml 596 ml 971 ml Intake Oral 240 ml 240 ml 240 ml 120 ml IV Total 839 ml 356 ml 851 ml Output Urine Total 800 ml # Voids 1 2 2 # Bowel Movements 0 0 0 Result Diagram: 01/24/1742401/24/17424 Objective Remarks GENERAL: NAD SKIN: Warm and dry. HEAD: Normocephalic. EYES: No scleral icterus. No injection or drainage. NECK: Supple, trachea midline. No JVD or lymphadenopathy. CARDIOVASCULAR: Regular rate and rhythm without murmurs, gallops, or rubs. RESPIRATORY: Breath sounds equal bilaterally. No accessory muscle use. GASTROINTESTINAL: Abdomen soft, non-tender, nondistended. MUSCULOSKELETAL: No cyanosis, or edema. BACK: Nontender without obvious deformity. No CVA tenderness. A/P Problem List: (1) UTI (urinary tract infection) ICD Code: N39.0 Status: Acute (2) Failure of outpatient treatment ICD Code: Z78.9 Status: Acute (3) Hydronephrosis ICD Code: N13.30 Status: Acute (4) Pyelonephritis ICD Code: N12 Status: Acute (5) CKD (chronic kidney disease) stage 4, GFR 15-29 ml/min ICD Code: N18.4 Status: Acute Assessment and Plan 81-year-old male with 1. UTI: U/a w/ UTI, recurrent UTI s/p outpatient antibiotics, failed outpatient therapy. S/p Blood/Urine Cultures. Currently on Cefepime, IVF for hydration. 2. Pyelonephritis: CT Abd/Pelvis w/ perinephric stranding consistent w/ pyelonephriti. Continue with cefepime pending urine culture 3. Hydronephrosis: Bilateral. H/o Obstructive Uropathy s/p Stent Placement and Replacement [address] Marie. Bilateral hydronephrosis on CT. urology consultation pending. 4. CKD: Stage IV. Renal function currently stable, appreciate input from nephrology. Repeat BMP in a.m. 5. DVT Prophylaxis: SCD/Teds. 6. Hypertension: Currently on Norvasc and Cardura 8 mg daily Asif Esquivel MD Jan 25, 2017 10:13
[2017-01-25 12:00] VITALS: BP 142/67; PULSE 79; RESP 17; TEMP 96.7; O2SAT 100
[2017-01-25] MEDS ORDERED: RESP: ALBUTEROL 2.5 MG/IPRATROPIUM 0.5 MG NEB (PRN) NEB (12:30)
--- NOTE | 2017-01-25 13:25 | PD.CONS ---
[facility] Service Urology Consult Requested By Primary Care Physician Jeff Jarvis MD Diagnosis: (1) UTI (urinary tract infection) ICD Code: N39.0 (2) Failure of outpatient treatment ICD Code: Z78.9 (3) Hydronephrosis ICD Code: N13.30 (4) Pyelonephritis ICD Code: N12 (5) CKD (chronic kidney disease) stage 4, GFR 15-29 ml/min ICD Code: N18.4 History of Present Illness 81 y.o male with h/o CaP s/p RRP in 2000. Pt subsequently underwent radiation therapy for evidence of residual disease. Patient had artificial urinary sphincter placed back in 2006. Back in 2004 he had some obstruction of the left ureter and has been stent dependent since that time. Approximate 4 years ago he went into acute renal failure in the right side was not draining very well and a right sided stent was then placed. He's had bilateral stents in place since that time. He is followed by Dr. Marie he changes his stents every 6 months. Over the last few years, he's noted increasing urinary tract infections with one episode of sepsis. He presented on admission this time with left-sided flank pain. He denied any fever or chills. Prior urine culture from 01/07/17 noted Proteus. He does note urinary frequency at times and this is mostly due to his stents causing bladder irritation. The stents were last changed in April 2016. According to the patient, his PSA has been less than 0.1. CT scan on admission did showed some mild stranding around the left kidney with both stents in good position. Review of Systems Constitutional: DENIES: Diaphoretic episodes Endocrine: DENIES: Heat/cold intolerance Eyes: DENIES: Blurred vision Ears, nose, mouth, throat: DENIES: Tinnitus Respiratory: DENIES: Apneas Cardiovascular: DENIES: Chest pain Gastrointestinal: DENIES: Abdominal pain Genitourinary: DENIES: Sexual dysfunction Musculoskeletal: DENIES: Joint pain Integumentary: DENIES: Abnormal pigmentation Hematologic/lymphatic: DENIES: Bruising Immunologic/allergic: DENIES: Eczema Neurologic: DENIES: Abnormal gait Psychiatric: DENIES: Anxiety Past Family Social History Past Medical History Prostate cancer diagnosed in 2000 Hypertension Sleep apnea Chronic kidney disease Past Surgical History Radical retropubic prostatectomy in 2000 Artificial urinary sphincter placement back in 2006 Hernia repair Bilateral ureteral stent placement via cystoscopy Allergies: Coded Allergies: Sulfa (Verified Allergy, Severe, Nausea/Vomiting, 01/22/17) *MDRO Multi-Drug Resistant Organism (Verified Adverse Reaction, Unknown, ) 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 SKIN: No rashes, ecchymoses or lesions. Cool and dry. HEAD: Atraumatic. Normocephalic. No temporal or scalp tenderness. EYES: Pupils equal round and reactive. Extraocular motions intact. No scleral icterus. No injection or drainage. ENT: Nose without bleeding, purulent drainage or septal hematoma. Throat without erythema, tonsillar hypertrophy or exudate. Uvula midline. Airway patent. NECK: Trachea midline. No JVD or lymphadenopathy. Supple, nontender, no meningeal signs. CARDIOVASCULAR: Regular rate and rhythm without murmurs, gallops, or rubs. RESPIRATORY: Clear to auscultation. Breath sounds equal bilaterally. No wheezes , rales, or rhonchi. GASTROINTESTINAL: Abdomen soft, non-tender, nondistended. No hepato-splenomegaly , or palpable masses. No guarding. GENITOURINARY: Normal phallus, testes descended, artificial urinary sphincter pump noted in scrotum MUSCULOSKELETAL: Extremities without clubbing, cyanosis, or edema. No joint tenderness, effusion, or edema noted. No calf tenderness. Negative Homans sign bilaterally. NEUROLOGICAL: Awake and alert. Cranial nerves II through XII intact. Motor and sensory grossly within normal limits. Five out of 5 muscle strength in all muscle groups. Normal speech. Laboratory Date/Time Procedure Status Source Growth 01/23/17 01:30 Aerobic Blood Culture - Preliminary Resulted Blood Peripheral NO GROWTH IN 2 DAYS 01/23/17 01:30 Anaerobic Blood Culture - Preliminary Resulted Blood Peripheral NO GROWTH IN 2 DAYS 01/22/17 23:45 Urine Culture - Final Complete Urine Clean Catch 50-100,000 CFU/ML MIXED SHRUTHI... Result Diagram: 01/24/1742401/24/17424 Assessment and Plan Assessment and Plan 81-year-old male with history of prostate cancer, chronic renal insufficiency with pyelonephritis is currently stent dependent. Continue IV antibiotics Recommend patient to follow-up with Dr. Marie and have his stents changed after this acute infection has resolved. Creatinine of 3.1 is currently at the patient's baseline. Thank you for the consult and for allowing me to participate in the care of this patient. Philipp Scales DO Jan 25, 2017 13:25
[2017-01-25 16:00] VITALS: BP 147/60; PULSE 85; RESP 17; TEMP 97.7; O2SAT 98
[2017-01-25] MEDS: LATANOPROST 0.005% OPHT SOLN 2.5 ML BTL EACH EYE SCH (19:51)
[2017-01-25 20:00] VITALS: BP 165/74; PULSE 88; RESP 22; TEMP 98; O2SAT 97
[2017-01-26] VITALS: BP 149/69; PULSE 90; RESP 22; TEMP 97.5; O2SAT 97
[2017-01-26] MEDS: SODIUM CHLOR 0.9% 1000 ML INJ 1,000 ML IV SCH ×2 (01:13→09:21)
[2017-01-26] MEDS: CEFEPIME INJ 1,000 MG in SODIUM CHLORIDE 0.9% INJ 100 ML IV SCH (01:14)
[2017-01-26 05:03] LABS: BASOPHIL # 0.1 TH/MM3 (0-0.2); BASOPHIL % 0.8 % (0.0-2.0); EOSINOPHIL # 0.3 TH/MM3 (0-0.4); EOSINOPHIL % 3.8 % (0.0-4.0); HEMATOCRIT 24.6 % (39.0-51.0); HEMO FLAGS DIFF FINAL; LYMPH % 16.2 % (9.0-44.0); LYMPHOCYTE # 1.1 TH/MM3 (1.0-4.8); MEAN CORPUSCULAR HEMOGLOBIN 29.8 PG (27.0-34.0); MEAN CORPUSCULAR HGB CONC 33.9 % (32.0-36.0); MONO % 6.7 % (0.0-8.0); NEUT % 72.5 % (16.0-70.0); PLATELET COUNT 109 TH/MM3 (150-450); RED BLOOD COUNT 2.79 MIL/MM3 (4.50-5.90); RED CELL DISTRIBUTION WIDTH 16.3 % (11.6-17.2); WHITE BLOOD COUNT 6.9 TH/MM3 (4.0-11.0)
[2017-01-26 05:28] LABS: BICARBONATE 19.8 MEQ/L (21.0-32.0); POTASSIUM 3.9 MEQ/L (3.5-5.1)
[2017-01-26 08:00] VITALS: BP 144/67; PULSE 87; RESP 17; TEMP 97; O2SAT 97
[2017-01-26] MEDS: SODIUM CHLORIDE 0.9% FLUSH 5 ML FLUSH FLUSH SCH (09:00)
[2017-01-26] MEDS: LACTOBACILLUS ACIDOPHILUS TAB PO SCH ×2 (09:15→12:00)
[2017-01-26] MEDS: DOXAZOSIN MESYLATE 4 MG TAB PO SCH (09:15)
[2017-01-26] MEDS: amLODIPine BESYLATE 5 MG TAB PO SCH (09:15)
--- NOTE | 2017-01-26 11:44 | HHI.NPPN ---
Subjective History of Present Illness This patient is an 81-year-old male well-known to me from my office who has a history of known CKD stage IV. Patient was being prepared for dialysis with placement of an AV dialysis fistula. Patient also has a history of recurrent obstructive uropathy and presently has [address] Now presents to the hospital with a history of left flank pain and subsequently has been diagnosed as having a urinary tract infection. CT scan revealed bilateral hydronephrosis mild on the right while moderate on the left with evidence of left-sided perinephric stranding. Urology consultation is currently pending. Patient's baseline creatinine level ranging between 3.0 and 3.5. Interval History Urological and primary care documentation reviewed. Patient scheduled for discharge with follow-up with outpatient urologist. Patient aware of need to make an early appointment. No verbal complaints today. Objective Data Data 01/25/17 01/26/17 19:00 07:00 Intake Total 360 ml 2761 ml Balance 360 ml 2761 ml Intake Oral 360 ml 240 ml IV Total 2521 ml # Voids 4 4 # Bowel Movements 0 1 Vital Signs Date Time Temp Pulse Resp B/P Pulse Ox O2 Delivery O2 Flow Rate FiO2 01/26/17 08:00 97.0 87 17 144/67 97 01/26/17 00:00 97.5 90 22 149/69 97 01/25/17 20:00 98.0 88 22 165/74 97 01/25/17 16:00 97.7 85 17 147/60 98 01/25/17 12:00 96.7 79 17 142/67 100 -: 01/26/17 0434 01/26/17 0434 Physical Exam General Appearance: No Acute Distress, Comfortable Eyes Eye Exam: Sclera White Pulmonary Resp Exam: Clear Bilaterally, Breath Sounds Equal, No Distress Gastrointestinal/Abdomen GI Exam: Soft, Non-Tender Integumentary Skin Exam: Clear, Warm, Dry Neurologic Neuro Exam: Alert, Awake, Speech Clear Psychiatric Psych Exam: Appropriate Responses Assessment/Plan Discussed Condition With: Patient, Daughter Problem List: (1) CKD (chronic kidney disease) stage 4, GFR 15-29 ml/min Plan: Patient's renal indices actually improved slightly since admission. Patient scheduled for discharge today. I will follow the patient up in the office at his previously scheduled appointment. Urological management per urology outpatient. Antibiotics per primary care physician. Medications should be adjusted for the patient's estimated GFR if clinically indicated. Avoid agents with significant potential for nephrotoxicity possible including NSAIDs for analgesia, iodine contrast agents. Gadolinium is contraindicated if the GFR is below 30. (2) Hypertension Plan: Continue current hypertensive medications. (3) Hydronephrosis Plan: Management per urology. (4) Pyelonephritis Plan: Defer antibiotic therapy to primary care physician. Piyush Jha MD Jan 26, 2017 11:44
--- NOTE | 2017-01-26 12:03 | HHI.PR ---
Subjective Remarks Follow-up UTI/pyelonephritis/CKD 01/24/17-patient seen and examined; denies any back pain, dysuria. Currently stable. Family by the bedside 01/25/17-patient seen and examined, reports good urine output without any gross hematuria ; denies any flank pain. Currently afebrile 01/26/17-patient seen and examined, no acute event overnight and stable. He was up and ambulated. He was seen yesterday by urology. Family by the bedside. Objective Vitals Vital Signs Date Time Temp Pulse Resp B/P Pulse Ox O2 Delivery O2 Flow Rate FiO2 01/26/17 08:00 97.0 87 17 144/67 97 01/26/17 00:00 97.5 90 22 149/69 97 01/25/17 20:00 98.0 88 22 165/74 97 01/25/17 16:00 97.7 85 17 147/60 98 I/O 01/25/17 01/25/17 01/25/17 01/26/17 01/26/17 01/26/17 07:00 15:00 23:00 07:00 15:00 23:00 Intake Total 971 ml 360 ml 1598 ml 1163 ml Balance 971 ml 360 ml 1598 ml 1163 ml Intake Oral 120 ml 360 ml 120 ml 120 ml IV Total 851 ml 1478 ml 1043 ml # Voids 2 4 3 1 2 # Bowel Movements 0 0 0 1 Result Diagram: 01/26/17 0434 01/26/17 0434 Imaging Last Impressions Abdomen/Pelvis CT 01/22/17 5335 Signed Impressions: Service Date/Time: Monday, January 23, 2017 00:23 - CONCLUSION: 1. Cholelithiasis. 2. Severe diverticulosis. 3. Moderate left-sided hydronephrosis and mild right hydronephrosis identified with mild perinephric stranding and fluid on the left. 4. No calculi are seen. Cuate Benson MD Objective Remarks GENERAL: NAD SKIN: Warm and dry. HEAD: Normocephalic. EYES: No scleral icterus. No injection or drainage. NECK: Supple, trachea midline. No JVD or lymphadenopathy. CARDIOVASCULAR: Regular rate and rhythm without murmurs, gallops, or rubs. RESPIRATORY: Breath sounds equal bilaterally. No accessory muscle use. GASTROINTESTINAL: Abdomen soft, non-tender, nondistended. MUSCULOSKELETAL: No cyanosis, or edema. BACK: Nontender without obvious deformity. No CVA tenderness. Procedures none A/P Problem List: (1) UTI (urinary tract infection) ICD Code: N39.0 Status: Acute (2) Failure of outpatient treatment ICD Code: Z78.9 Status: Acute (3) Hydronephrosis ICD Code: N13.30 Status: Acute (4) Pyelonephritis ICD Code: N12 Status: Acute (5) CKD (chronic kidney disease) stage 4, GFR 15-29 ml/min ICD Code: N18.4 Status: Acute Assessment and Plan 81-year-old male with 1. UTI: U/a w/ UTI, recurrent UTI s/p outpatient antibiotics, failed outpatient therapy. S/p Blood/Urine Cultures. Currently on Cefepime and culture remained negative., IVF for hydration. 2. Pyelonephritis: CT Abd/Pelvis w/ perinephric stranding consistent w/ pyelonephritis. Continue with cefepime and culture remained negative 3. Hydronephrosis: Bilateral. H/o Obstructive Uropathy s/p Stent Placement and Replacement [address] Marie. Bilateral hydronephrosis on CT. appreciate input from urology, patient need outpatient follow-up 4. CKD: Stage IV. Improving renal indices, appreciate input from nephrology. 5. DVT Prophylaxis: SCD/Teds. 6. Hypertension: Currently on Norvasc and Cardura 8 mg daily Asif Esquivel MD Jan 26, 2017 12:03
[2017-01-26] MEDS ORDERED: CIPR-9 PO (12:05)
--- NOTE | 2017-01-26 12:09 | HHI.DS ---
Discharge Summary Admission Date Jan 23, 2017 at 01:03 Discharge Date: Jan 26, 2017 Admitting Diagnosis pyelonephritis, chronic renal failure, failed outpatient therapy (1) UTI (urinary tract infection) ICD Code: N39.0 (2) Failure of outpatient treatment ICD Code: Z78.9 (3) Hydronephrosis ICD Code: N13.30 (4) Pyelonephritis ICD Code: N12 (5) CKD (chronic kidney disease) stage 4, GFR 15-29 ml/min ICD Code: N18.4 Procedures none Brief History - From Admission This is an 81-year-old male with a PMH of HTN, Prostate CA, CKD Stage IV, Obstructive Uropathy s/p Stent and Sleep Apnea who presented to the ER w/ complaints of left flank pain x3-4 days. States symptoms similar to previous episodes of renal stones. S/p Ureteral Stent placement approx 10yrs ago w/ replacement [address] Marie and has been doing well up until 2wks ago. Diagnoses w/ UTI at that time and started on antibiotics, had transient improvement after antibiotics, however has had recurrent and worsening left flank pain x4 days. Denies fever, chills, nausea, vomiting or diarrhea. CT Abd /Pelvis w/ cholelithiasis, diverticulosis, moderate left hydronephrosis and mild right hydronephrosis w/ mild perinephric stranding. Urine Cultures from 01/07/17 +Proteus, Resistant to Rocephin, Sensitive to Cefepime, s/p Cefepime 2gm in ER and Blood Cultures. Follows w/ Dr. Jha w/ Nephrology for CKD. CBC/BMP: 01/26/17 0434 01/26/17 0434 Significant Findings Laboratory Tests Test 01/24/17 01/26/17 04:25 04:34 Red Blood Count 2.79 MIL/MM3 2.79 MIL/MM3 (4.50-5.90) (4.50-5.90) Hemoglobin 8.5 GM/DL 8.3 GM/DL (13.0-17.0) (13.0-17.0) Hematocrit 24.6 % 24.6 % (39.0-51.0) (39.0-51.0) Platelet Count 123 TH/MM3 109 TH/MM3 (150-450) (150-450) Neutrophils (%) (Auto) 71.3 % 72.5 % (16.0-70.0) (16.0-70.0) Chloride Level 111 MEQ/L 113 MEQ/L (98-107) (98-107) Blood Urea Nitrogen 32 MG/DL (7-18) 30 MG/DL (7-18) Creatinine 3.15 MG/DL 2.81 MG/DL (0.60-1.30) (0.60-1.30) Estimat Glomerular Filtration 19 ML/MIN (>89) 22 ML/MIN (>89) Rate Random Glucose 121 MG/DL 115 MG/DL (74-106) (74-106) Calcium Level 8.3 MG/DL (8.5-10.1) Aspartate Amino Transf 8 U/L (15-37) (AST/SGOT) Alanine Aminotransferase 11 U/L (12-78) (ALT/SGPT) Total Protein 6.1 GM/DL (6.4-8.2) Albumin 2.9 GM/DL (3.4-5.0) Carbon Dioxide Level 19.8 MEQ/L (21.0-32.0) Imaging Last Impressions Abdomen/Pelvis CT 01/22/17 1632 Signed Impressions: Service Date/Time: Monday, January 23, 2017 00:23 - CONCLUSION: 1. Cholelithiasis. 2. Severe diverticulosis. 3. Moderate left-sided hydronephrosis and mild right hydronephrosis identified with mild perinephric stranding and fluid on the left. 4. No calculi are seen. Cuate Benson MD PE at Discharge GENERAL: NAD SKIN: Warm and dry. HEAD: Normocephalic. EYES: No scleral icterus. No injection or drainage. NECK: Supple, trachea midline. No JVD or lymphadenopathy. CARDIOVASCULAR: Regular rate and rhythm without murmurs, gallops, or rubs. RESPIRATORY: Breath sounds equal bilaterally. No accessory muscle use. GASTROINTESTINAL: Abdomen soft, non-tender, nondistended. MUSCULOSKELETAL: No cyanosis, or edema. BACK: Nontender without obvious deformity. No CVA tenderness. Hospital Course Patient was diagnosed with UTI and pyelonephritis for which she was counseled on IV antibiotic with monitoring of cultures which remained negative. Urology was consulted secondary to hydronephrosis in patient with prior history of obstructive uropathy with stent placement however it was recommended conservative management and to follow up outpatient. Due to chronic kidney disease nephrology was also consulted and renal function was monitored with improvement of renal indices with gentle IV fluid hydration. He was continued on his medication for other chronic medical conditions. DVT and GI prophylaxis were provided. Vital remained stable prior to discharge. She will be discharged home on Cipro 500 mg by mouth twice a day 2 more days. Pt Condition on Discharge: Stable Discharge Disposition: Disch w/ Home Health Serv Discharge Time: > 30 minutes Discharge Instructions DIET: Follow Instructions for: Heart Healthy Diet Activities you can perform: Regular-No Restrictions Follow up Referrals: Nephrology PCP Follow-up - 1 Week Urology New Medications: Ciprofloxacin (Cipro) 500 Mg Tab 500 MG PO BID Infection #4 Ref 0 TAB Continued Medications: Amlodipine (Norvasc) 5 Mg Tab 5 MG PO DAILY Blood Pressure Management #30 Ref 0 TAB Aspirin (Aspirin) 81 Mg Tabdr 81 MG PO DAILY TAB Benazepril (Lotensin) 20 Mg Tab 20 MG PO DAILY Blood Pressure Management #30 Ref 0 TAB Doxazosin (Cardura) 8 Mg Tab 8 MG PO DAILY #30 Ref 0 TAB Lactobacillus Acidophilus (Probiotic) 1 Cap Cap 1 CAP PO TIDAC Nutritional Supplement #30 Ref 0 CAP Latanoprost Opth Drops (Xalatan Opth Drops) 0.005% Drops 1 DROP EACH EYE HS Glaucoma #2.5 Ref 0 ML [place]-3 Fatty Acids (Fish Oil 600 mg) 1 Cap Cap DAILY Sodium Bicarbonate (Sodium Bicarbonate) 325 Mg Tab 325 MG PO DAILY #60 Ref 0 TAB Discontinued Medications: Clindamycin (Clindamycin) 300 Mg Cap 300 MG PO Q6H Infection Days 10 Ref 0 CAP Asif Esquievl MD Jan 26, 2017 12:09
--- NOTE | 2017-01-26 13:52 | HHI.FF ---
Face to Face Verification Diagnosis: (1) UTI (urinary tract infection) (2) Hypertension (3) BPH (benign prostatic hyperplasia) (4) Hydronephrosis (5) Pyelonephritis (6) CKD (chronic kidney disease) stage 4, GFR 15-29 ml/min Home Health Nursing Order: Signs/symptoms of disease process Medication education-adverse effect I have seen patient Dennis Ceballos on 01/26/17. My clinical findings support the need for the requested home health care services because: Deconditioned w/ increased weakness I certify that my clinical findings support that this patient is homebound because: Poor cardiac reserve Asif Esquivel MD Jan 26, 2017 13:52
== END 2017-01-26 14:06 | disposition home health service (06) | DRG 690 ==
LOC: NEPC 23:21 → NEDA 01-23 01:03 → N07A 01-23 04:04
PROVIDERS: ADMIT Hospitalist; ATTEND Hospitalist
DX: N13.6 Pyonephrosis (principal); N18.4 Chronic kidney disease, stage 4 (severe); D63.1 Anemia in chronic kidney disease; K21.9 Gastro-esophageal reflux disease without esophagitis; G47.33 Obstructive sleep apnea (adult) (pediatric); I12.9 Hypertensive chronic kidney disease with stage 1 through stage 4 chronic kidney disease, or unspecified chronic kidney disease
CPT/HCPCS: 74176; 80048; 80053; 81001; 83605; 83690; 85025; 87040; 87086; 87641; 96361; 96374; 96375; J0692; J2270; J2405; J7030

== ENCOUNTER → 2017-02-04 | Outpatient (CLI) | payer MEDICARE, OTHER ==
[~2017-02-04] MED LIST changes: -AMBI5TAB PO; +CIPR-9 PO; -CLIN1CAP6 PO
[2017-02-04 09:26] LABS: BASOPHIL # 0.1 TH/MM3 (0-0.2); BASOPHIL % 1.1 % (0.0-2.0); EOSINOPHIL # 0.3 TH/MM3 (0-0.4); EOSINOPHIL % 5.1 % (0.0-4.0); HEMATOCRIT 26.3 % (39.0-51.0); HEMO FLAGS DIFF FINAL; LYMPH % 25.5 % (9.0-44.0); LYMPHOCYTE # 1.3 TH/MM3 (1.0-4.8); MEAN CELL VOLUME 88.6 FL (80.0-100.0); MEAN CORPUSCULAR HEMOGLOBIN 29.7 PG (27.0-34.0); MEAN CORPUSCULAR HGB CONC 33.6 % (32.0-36.0); NEUT % 60.3 % (16.0-70.0); PLATELET COUNT 168 TH/MM3 (150-450); RED BLOOD COUNT 2.97 MIL/MM3 (4.50-5.90); RED CELL DISTRIBUTION WIDTH 16.3 % (11.6-17.2)
[2017-02-04 09:46] LABS: BACTERIA, URINE FEW /hpf; BLOOD, URINE MOD (NEG); GLUCOSE,URINE NEG (NEG); KETONE, URINE NEG (NEG); NITRITE,URINE NEG (NEG); PH, URINE 6.5 (5.0-8.5); SQUAMOUS EPITHELIAL CELL URINE 1 /hpf (0-5); URINE COLOR YELLOW (YELLW/STRAW)
[2017-02-04 09:50] LABS: COMMENT (UR) CULTURE INDICATED; CULTURE IF INDICATED CULTURE INDICATED
[2017-02-04 09:51] LABS: ANION GAP 6 MEQ/L (5-15); BICARBONATE 29.2 MEQ/L (21.0-32.0); BLOOD UREA NITROGEN 31 MG/DL (7-18); CHLORIDE 110 MEQ/L (98-107); GLOMERULAR FILTRATION RATE 18 ML/MIN (>89); GLUCOSE,FASTING 119 MG/DL (74-99); POTASSIUM 4.2 MEQ/L (3.5-5.1); SODIUM (NA) 145 MEQ/L (136-145); TRANSFERRIN IRON PROFILE 193 MG/DL (200-360)
== END ==
LOC: PLAB 07:06
PROVIDERS: ATTEND Internal Medicine Nephrology
DX: N18.4 Chronic kidney disease, stage 4 (severe) (principal); D63.1 Anemia in chronic kidney disease; R82.90 Unspecified abnormal findings in urine
CPT/HCPCS: 80069; 81001; 82570; 83540; 83550; 83970; 84156; 85025; 87086

== ENCOUNTER → 2017-04-15 | Outpatient (CLI) | payer MEDICARE, OTHER ==
[2017-04-15 09:43] LABS: AUTOMATED NEUTROPHIL # 3.9 TH/MM3 (1.8-7.7); BASOPHIL # 0.1 TH/MM3 (0-0.2); EOSINOPHIL # 0.3 TH/MM3 (0-0.4); EOSINOPHIL % 4.7 % (0.0-4.0); HEMATOCRIT 31.9 % (39.0-51.0); HEMO FLAGS DIFF FINAL; LYMPH % 24.2 % (9.0-44.0); LYMPHOCYTE # 1.5 TH/MM3 (1.0-4.8); MEAN CELL VOLUME 86.1 FL (80.0-100.0); MEAN CORPUSCULAR HEMOGLOBIN 29.8 PG (27.0-34.0); MEAN CORPUSCULAR HGB CONC 34.7 % (32.0-36.0); MONO % 6.2 % (0.0-8.0); NEUT % 63.9 % (16.0-70.0); PLATELET COUNT 167 TH/MM3 (150-450); RED BLOOD COUNT 3.71 MIL/MM3 (4.50-5.90); RED CELL DISTRIBUTION WIDTH 16.4 % (11.6-17.2); WHITE BLOOD COUNT 6.1 TH/MM3 (4.0-11.0)
[2017-04-15 09:48] LABS: BLOOD, URINE SMALL (NEG); COMMENT (UR) CULTURE INDICATED; CULTURE IF INDICATED CULTURE INDICATED; GLUCOSE,URINE NEG (NEG); KETONE, URINE NEG (NEG); NITRITE,URINE NEG (NEG); PH, URINE 6.5 (5.0-8.5); SQUAMOUS EPITHELIAL CELL URINE 1 /hpf (0-5); URINE COLOR LIGHT-YELLOW (YELLW/STRAW)
[2017-04-15 10:16] LABS: ANION GAP 10 MEQ/L (5-15); BICARBONATE 25.7 MEQ/L (21.0-32.0); BLOOD UREA NITROGEN 42 MG/DL (7-18); CHLORIDE 105 MEQ/L (98-107); FERRITIN 227 NG/ML (26-388); GLOMERULAR FILTRATION RATE 17 ML/MIN (>89); GLUCOSE,FASTING 113 MG/DL (74-99); POTASSIUM 4.2 MEQ/L (3.5-5.1); SODIUM (NA) 141 MEQ/L (136-145); TRANSFERRIN IRON PROFILE 194 MG/DL (200-360)
== END ==
LOC: PLAB 07:24
PROVIDERS: ATTEND Internal Medicine Nephrology
DX: N18.4 Chronic kidney disease, stage 4 (severe) (principal); D63.1 Anemia in chronic kidney disease; N39.0 Urinary tract infection, site not specified; B95.62 Methicillin resistant Staphylococcus aureus infection as the cause of diseases classified elsewhere
CPT/HCPCS: 36415; 80069; 81001; 82306; 82570; 82728; 83540; 83550; 83970; 84156; 85025; 86403; 87086; 87186

== ENCOUNTER → 2017-06-18 | Outpatient (CLI) | payer MEDICARE, OTHER ==
[2017-06-18 09:44] LABS: ANION GAP 9 MEQ/L (5-15); AST (GOT) 13 U/L (15-37); BICARBONATE 25.8 MEQ/L (21.0-32.0); BLOOD UREA NITROGEN 37 MG/DL (7-18); CHLORIDE 107 MEQ/L (98-107); GLOMERULAR FILTRATION RATE 18 ML/MIN (>89); GLUCOSE,FASTING 121 MG/DL (74-99); POTASSIUM 4.8 MEQ/L (3.5-5.1); SODIUM (NA) 142 MEQ/L (136-145)
[2017-06-18 09:51] LABS: ALKALINE PHOSPHATASE 77 U/L (45-117); ALT (GPT) 15 U/L (12-78); HDL CHOLESTEROL 47.7 MG/DL (40.0-60.0); LDL CHOLESTEROL 77 MG/DL (0-99); TOTAL BILIRUBIN ADULT 0.8 MG/DL (0.2-1.0)
== END ==
LOC: PLAB 07:11
PROVIDERS: ATTEND Family Medicine
DX: I12.9 Hypertensive chronic kidney disease with stage 1 through stage 4 chronic kidney disease, or unspecified chronic kidney disease (principal); N18.4 Chronic kidney disease, stage 4 (severe)
CPT/HCPCS: 36415; 80053; 80061

== ENCOUNTER → 2017-07-01 | Outpatient (CLI) | payer MEDICARE, OTHER ==
[2017-07-01 10:21] LABS: AUTOMATED NEUTROPHIL # 3.5 TH/MM3 (1.8-7.7); BASOPHIL # 0.1 TH/MM3 (0-0.2); BASOPHIL % 1.4 % (0.0-2.0); EOSINOPHIL # 0.3 TH/MM3 (0-0.4); EOSINOPHIL % 5.5 % (0.0-4.0); HEMATOCRIT 29.1 % (39.0-51.0); HEMO FLAGS DIFF FINAL; LYMPH % 27.5 % (9.0-44.0); LYMPHOCYTE # 1.6 TH/MM3 (1.0-4.8); MEAN CELL VOLUME 90.1 FL (80.0-100.0); MEAN CORPUSCULAR HEMOGLOBIN 30.9 PG (27.0-34.0); MEAN CORPUSCULAR HGB CONC 34.3 % (32.0-36.0); MONO % 6.9 % (0.0-8.0); NEUT % 58.7 % (16.0-70.0); PLATELET COUNT 163 TH/MM3 (150-450); RED BLOOD COUNT 3.22 MIL/MM3 (4.50-5.90); RED CELL DISTRIBUTION WIDTH 16.6 % (11.6-17.2); WHITE BLOOD COUNT 5.9 TH/MM3 (4.0-11.0)
[2017-07-01 10:43] LABS: BACTERIA, URINE OCC /hpf; BLOOD, URINE SMALL (NEG); COMMENT (UR) CULTURE INDICATED; CULTURE IF INDICATED CULTURE INDICATED; GLUCOSE,URINE NEG (NEG); KETONE, URINE NEG (NEG); SQUAMOUS EPITHELIAL CELL URINE 2 /hpf (0-5); URINE COLOR YELLOW (YELLW/STRAW)
[2017-07-01 10:44] LABS: NITRITE,URINE POS (NEG)
[2017-07-01 10:48] LABS: ANION GAP 10 MEQ/L (5-15); BICARBONATE 25.3 MEQ/L (21.0-32.0); BLOOD UREA NITROGEN 38 MG/DL (7-18); CHLORIDE 105 MEQ/L (98-107); GLOMERULAR FILTRATION RATE 18 ML/MIN (>89); GLUCOSE,FASTING 118 MG/DL (74-99); POTASSIUM 3.8 MEQ/L (3.5-5.1); SODIUM (NA) 140 MEQ/L (136-145)
[2017-07-01 10:50] LABS: TRANSFERRIN IRON PROFILE 195 MG/DL (200-360)
[2017-07-01 10:53] LABS: FERRITIN 174 NG/ML (26-388)
== END ==
LOC: PLAB 06:57
PROVIDERS: ATTEND Internal Medicine Nephrology
DX: E55.9 Vitamin D deficiency, unspecified (principal); N18.4 Chronic kidney disease, stage 4 (severe); D63.1 Anemia in chronic kidney disease; N39.0 Urinary tract infection, site not specified; B95.62 Methicillin resistant Staphylococcus aureus infection as the cause of diseases classified elsewhere
CPT/HCPCS: 36415; 80069; 81001; 82306; 82570; 82728; 83540; 83550; 83970; 84156; 85025; 86403; 87077; 87086; 87186

== ENCOUNTER → 2017-08-26 | Outpatient (CLI) | payer MEDICARE, OTHER | LOC: PLAB 07:22 | DX: Z85.46 Personal history of malignant neoplasm of prostate (principal) | CPT/HCPCS: 36415; 84153; 84403 ==

== ENCOUNTER → 2017-09-02 | Outpatient (CLI) | payer MEDICARE, OTHER ==
[2017-09-02 13:29] LABS: AUTOMATED NEUTROPHIL # 4.4 TH/MM3 (1.8-7.7); BASOPHIL # 0.1 TH/MM3 (0-0.2); EOSINOPHIL # 0.3 TH/MM3 (0-0.4); EOSINOPHIL % 4.4 % (0.0-4.0); HEMATOCRIT 29.7 % (39.0-51.0); HEMO FLAGS DIFF FINAL; LYMPH % 20.9 % (9.0-44.0); LYMPHOCYTE # 1.4 TH/MM3 (1.0-4.8); MEAN CELL VOLUME 91.2 FL (80.0-100.0); MEAN CORPUSCULAR HEMOGLOBIN 31.2 PG (27.0-34.0); MEAN CORPUSCULAR HGB CONC 34.3 % (32.0-36.0); MONO % 6.7 % (0.0-8.0); PLATELET COUNT 160 TH/MM3 (150-450); RED BLOOD COUNT 3.26 MIL/MM3 (4.50-5.90); RED CELL DISTRIBUTION WIDTH 15.7 % (11.6-17.2); WHITE BLOOD COUNT 6.5 TH/MM3 (4.0-11.0)
[2017-09-02 13:33] LABS: ANION GAP 8 MEQ/L (5-15); BICARBONATE 26.3 MEQ/L (21.0-32.0); BLOOD UREA NITROGEN 40 MG/DL (7-18); CHLORIDE 107 MEQ/L (98-107); GLOMERULAR FILTRATION RATE 19 ML/MIN (>89); GLUCOSE,FASTING 117 MG/DL (74-99); POTASSIUM 3.8 MEQ/L (3.5-5.1); SODIUM (NA) 141 MEQ/L (136-145)
[2017-09-02 13:35] LABS: BACTERIA, URINE OCC /hpf; BLOOD, URINE SMALL (NEG); GLUCOSE,URINE NEG (NEG); KETONE, URINE NEG (NEG); NITRITE,URINE POS (NEG); PH, URINE 6.5 (5.0-8.5); SQUAMOUS EPITHELIAL CELL URINE 1 /hpf (0-5); TRANSITIONAL EPI CELLS, URINE <1 /hpf; URINE COLOR LIGHT-YELLOW (YELLW/STRAW)
[2017-09-02 13:36] LABS: COMMENT (UR) CULTURE INDICATED; CULTURE IF INDICATED CULTURE INDICATED
[2017-09-02 13:42] LABS: FERRITIN 124 NG/ML (26-388); TRANSFERRIN IRON PROFILE 198 MG/DL (200-360)
== END ==
LOC: PLAB 06:48
PROVIDERS: ATTEND Internal Medicine Nephrology
DX: E55.9 Vitamin D deficiency, unspecified (principal); N18.4 Chronic kidney disease, stage 4 (severe); D64.9 Anemia, unspecified
CPT/HCPCS: 36415; 80069; 81001; 82306; 82570; 82728; 83540; 83550; 83970; 84156; 85025; 86403; 87086; 87186

== ENCOUNTER → 2017-11-04 | Outpatient (CLI) | payer MEDICARE, OTHER ==
[~2017-11-04] MED LIST changes: -ASPI1TAB69 PO; +ASPI81TA23 PO; -CIPR-9 PO; -OMEG600C2; +RANI150T PO; +VENO20IN IV; +VITA2000 PO
[2017-11-04 10:09] LABS: AUTOMATED NEUTROPHIL # 3.2 TH/MM3 (1.8-7.7); BASOPHIL # 0.1 TH/MM3 (0-0.2); BASOPHIL % 1.2 % (0.0-2.0); EOSINOPHIL # 0.3 TH/MM3 (0-0.4); HEMATOCRIT 28.6 % (39.0-51.0); HEMO FLAGS DIFF FINAL; LYMPH % 26.2 % (9.0-44.0); LYMPHOCYTE # 1.4 TH/MM3 (1.0-4.8); MEAN CORPUSCULAR HEMOGLOBIN 31.1 PG (27.0-34.0); MEAN CORPUSCULAR HGB CONC 34.1 % (32.0-36.0); MONO % 6.9 % (0.0-8.0); NEUT % 60.7 % (16.0-70.0); PLATELET COUNT 157 TH/MM3 (150-450); RED BLOOD COUNT 3.14 MIL/MM3 (4.50-5.90); RED CELL DISTRIBUTION WIDTH 17.2 % (11.6-17.2); WHITE BLOOD COUNT 5.3 TH/MM3 (4.0-11.0)
[2017-11-04 10:22] LABS: BACTERIA, URINE OCC /hpf; BLOOD, URINE SMALL (NEG); COMMENT (UR) CULTURE INDICATED; CULTURE IF INDICATED CULTURE INDICATED; GLUCOSE,URINE NEG (NEG); KETONE, URINE NEG (NEG); NITRITE,URINE POS (NEG); PH, URINE 6.5 (5.0-8.5); SQUAMOUS EPITHELIAL CELL URINE 4 /hpf (0-5); URINE COLOR YELLOW (YELLW/STRAW)
[2017-11-04 10:24] LABS: ANION GAP 9 MEQ/L (5-15); BICARBONATE 24.3 MEQ/L (21.0-32.0); BLOOD UREA NITROGEN 42 MG/DL (7-18); CHLORIDE 108 MEQ/L (98-107); GLOMERULAR FILTRATION RATE 15 ML/MIN (>89); POTASSIUM 4.1 MEQ/L (3.5-5.1); SODIUM (NA) 141 MEQ/L (136-145)
[2017-11-04 10:25] LABS: GLUCOSE,FASTING 128 MG/DL (74-99)
[2017-11-04 10:33] LABS: FERRITIN 297 NG/ML (26-388); TRANSFERRIN IRON PROFILE 196 MG/DL (200-360)
== END ==
LOC: PLAB 09-10 07:03
PROVIDERS: ATTEND Internal Medicine Nephrology
DX: E55.9 Vitamin D deficiency, unspecified (principal); N18.4 Chronic kidney disease, stage 4 (severe); D63.1 Anemia in chronic kidney disease; N39.0 Urinary tract infection, site not specified; B95.62 Methicillin resistant Staphylococcus aureus infection as the cause of diseases classified elsewhere
CPT/HCPCS: 36415; 80069; 81001; 82306; 82570; 82728; 83540; 83550; 83970; 84156; 85025; 86403; 87086; 87186

== ENCOUNTER → 2017-11-19 | Outpatient (CLI) | payer MEDICARE, OTHER | LOC: PLAB 07:01 | PROVIDERS: ATTEND Internal Medicine Nephrology | DX: N39.0 Urinary tract infection, site not specified (principal) | CPT/HCPCS: 87086 ==

== ENCOUNTER → 2017-12-09 | Outpatient (CLI) | payer MEDICARE, OTHER ==
[2017-12-09 09:43] LABS: AUTOMATED NEUTROPHIL # 4.3 TH/MM3 (1.8-7.7); BASOPHIL # 0.1 TH/MM3 (0-0.2); BASOPHIL % 0.8 % (0.0-2.0); EOSINOPHIL # 0.3 TH/MM3 (0-0.4); EOSINOPHIL % 3.8 % (0.0-4.0); HEMATOCRIT 25.9 % (39.0-51.0); HEMOGLOBIN 8.9 GM/DL (13.0-17.0); LYMPH % 24.6 % (9.0-44.0); LYMPHOCYTE # 1.6 TH/MM3 (1.0-4.8); MEAN CORPUSCULAR HEMOGLOBIN 30.9 PG (27.0-34.0); MEAN CORPUSCULAR HGB CONC 34.4 % (32.0-36.0); MEAN PLATELET VOLUME 7.2 FL (7.0-11.0); MONO % 6.6 % (0.0-8.0); MONOCYTE # 0.4 TH/MM3 (0-0.9); NEUT % 64.2 % (16.0-70.0); PLATELET COUNT 180 TH/MM3 (150-450); RED BLOOD COUNT 2.88 MIL/MM3 (4.50-5.90); RED CELL DISTRIBUTION WIDTH 16.8 % (11.6-17.2); WHITE BLOOD COUNT 6.7 TH/MM3 (4.0-11.0)
[2017-12-09 09:57] LABS: BACTERIA, URINE MOD /hpf; BILIRUBIN, URINE NEG (NEG); BLOOD, URINE MOD (NEG); GLUCOSE,URINE NEG (NEG); KETONE, URINE NEG (NEG); NITRITE,URINE NEG (NEG); SQUAMOUS EPITHELIAL CELL URINE 4 /hpf (0-5); URINE COLOR YELLOW (YELLW/STRAW); URINE LEUKOCYTE ESTERASE LARGE (NEG); WHITE BLOOD CELL CLUMPS MANY
[2017-12-09 10:11] LABS: ALBUMIN 3.5 GM/DL (3.4-5.0); BICARBONATE 22.3 MEQ/L (21.0-32.0); BLOOD UREA NITROGEN 67 MG/DL (7-18); CALCIUM 9.5 MG/DL (8.5-10.1); CHLORIDE 108 MEQ/L (98-107); GLOMERULAR FILTRATION RATE 12 ML/MIN (>89); GLUCOSE,RANDOM 124 MG/DL (74-106); IRON (FE) 43 MCG/DL (65-175); PHOSPHORUS 4.2 MG/DL (2.5-4.9); SODIUM (NA) 141 MEQ/L (136-145)
[2017-12-09 10:16] LABS: % SATURATION IRON PROFILE 17.2 % (20-50); FERRITIN 454 NG/ML (26-388); TOTAL IRON BINDING CAPACITY 251 MCG/DL (250-450)
== END ==
LOC: PLAB 07:33
PROVIDERS: ATTEND Internal Medicine Nephrology
DX: N39.0 Urinary tract infection, site not specified (principal); N18.4 Chronic kidney disease, stage 4 (severe); D63.1 Anemia in chronic kidney disease; E55.9 Vitamin D deficiency, unspecified; R82.90 Unspecified abnormal findings in urine
CPT/HCPCS: 36415; 80069; 81001; 82306; 82728; 83540; 83550; 83970; 85025; 87086

== ENCOUNTER → 2017-12-30 | Outpatient (CLI) | payer MEDICARE, OTHER ==
[2017-12-30 13:29] LABS: BASOPHIL # 0.1 TH/MM3 (0-0.2); BASOPHIL % 1.1 % (0.0-2.0); EOSINOPHIL # 0.4 TH/MM3 (0-0.4); EOSINOPHIL % 4.3 % (0.0-4.0); HEMATOCRIT 27.3 % (39.0-51.0); HEMOGLOBIN 9.3 GM/DL (13.0-17.0); LYMPH % 27.2 % (9.0-44.0); LYMPHOCYTE # 2.2 TH/MM3 (1.0-4.8); MEAN CELL VOLUME 89.6 FL (80.0-100.0); MEAN CORPUSCULAR HEMOGLOBIN 30.6 PG (27.0-34.0); MEAN CORPUSCULAR HGB CONC 34.1 % (32.0-36.0); MEAN PLATELET VOLUME 7.2 FL (7.0-11.0); MONO % 5.6 % (0.0-8.0); MONOCYTE # 0.5 TH/MM3 (0-0.9); NEUT % 61.8 % (16.0-70.0); PLATELET COUNT 262 TH/MM3 (150-450); RED BLOOD COUNT 3.04 MIL/MM3 (4.50-5.90); RED CELL DISTRIBUTION WIDTH 16.9 % (11.6-17.2); WHITE BLOOD COUNT 8.1 TH/MM3 (4.0-11.0)
[2017-12-30 13:39] LABS: ALBUMIN 3.5 GM/DL (3.4-5.0); BICARBONATE 21.3 MEQ/L (21.0-32.0); CALCIUM 9.7 MG/DL (8.5-10.1); CREATININE 4.41 MG/DL (0.60-1.30)
[2017-12-30 13:40] LABS: PHOSPHORUS 4.1 MG/DL (2.5-4.9)
[2017-12-31 11:55] LABS: HEPATITIS B SURFACE ANTIGEN NEGATIVE (NEGATIVE); HEPATITIS C AB IgG NEGATIVE (NEGATIVE)
== END ==
LOC: PLAB 08:03
PROVIDERS: ATTEND Internal Medicine Nephrology
DX: N18.5 Chronic kidney disease, stage 5 (principal); N18.4 Chronic kidney disease, stage 4 (severe)
CPT/HCPCS: 36415; 80069; 85025; 86317; 86803; 87340

== ENCOUNTER → 2018-01-07 | Outpatient (CLI) | payer MEDICARE, OTHER ==
[~2018-01-07] MED LIST changes: +COMB0.2S EACH EYE; +METO25TA3 PO; +WALKER WHEELS/F1 MIS
[2018-01-07 10:44] LABS: ALBUMIN 3.2 GM/DL (3.4-5.0); BICARBONATE 22.7 MEQ/L (21.0-32.0); CALCIUM 8.9 MG/DL (8.5-10.1); CREATININE 4.99 MG/DL (0.60-1.30)
== END ==
LOC: PLAB 07:36
PROVIDERS: ATTEND Internal Medicine Nephrology
DX: N18.5 Chronic kidney disease, stage 5 (principal)
CPT/HCPCS: 36415; 80069

== ENCOUNTER 2018-01-08 17:52 | Observation (INO) | payer MEDICARE, OTHER ==
[~2018-01-08] VITALS: Ht 177.8 cm; Wt 80.0 kg
[~2018-01-08 17:52] MED LIST changes: -COMB0.2S EACH EYE; -METO25TA3 PO; -WALKER WHEELS/F1 MIS
[2018-01-08 18:06] VITALS: BP 180/74; PULSE 85; RESP 17; TEMP 98.2; O2SAT 97
--- NOTE | 2018-01-08 18:24 | PD ---
HPI Chief Complaint: Pain: Acute or Chronic Time Seen by Provider: 18:14 Travel History International Travel<30 days: No Contact w/Intl Traveler<30days: No Traveled to known affect area: No History of Present Illness HPI 82-year-old male presents to emergency department for evaluation. Patient has history of anemia, hypertension, prostate cancer, end-stage renal disease and is scheduled to start hemodialysis on Thursday. He went for iron transfusion today. After returning home, patient started to develop left-sided chest pain and feels like his left side is numb. He denies any focal deficits or weakness. Mild shortness of breath. States that he feels weak and tired. Pain continues to persist but describes it more as an aching. Denies any headache. He has no other symptoms to report. Denies any recent illnesses, fever, or chills. He has no other symptoms to report. PFSH Past Medical History Hx Anticoagulant Therapy: Yes Arthritis: Yes Heart Rhythm Problems: No Cancer: Yes (prostate) Cardiovascular Problems: Yes High Cholesterol: No Congestive Heart Failure: No Diabetes: No Diminished Hearing: No Endocrine: No Gastrointestinal Disorders: Yes GERD: Yes Glaucoma: No Genitourinary: Yes Hepatitis: No Hiatal Hernia: Yes Heparin Induced Thrombocytopen: No Hypertension: Yes Immune Disorder: No Inguinal Hernia: Yes (REPAIRED IN 2001.) Implanted Vascular Access Dvce: Yes Musculoskeletal: Yes Neurologic: No Psychiatric: No Reproductive: No Respiratory: Yes (sleep apnea) Renal Failure: Yes (RENAL INSUFF.) Sleep Apnea: Yes (CPAP) Thyroid Disease: No PNEUMOCCOCAL Vaccine (Year): 1 ?: Not Past Surgical History Abdominal Surgery: Yes (HERNIA REPAIR) Arteriovenous Shunt: Yes (AV fistula left upper arm) Body Medical Devices: artificial sphincter, stents in kidneys Coronary Artery Bypass Graft: No Eye Surgery: Yes (cataracts removed) Genitourinary Surgery: Yes (prostatectomy,urniary stent placed several times) Oral Surgery: Yes (uvulectomy) Prostatectomy: Yes (2000) Tonsillectomy: Yes Other Surgery: Yes (shunt lue 10/09/16) Social History Alcohol Use: No Tobacco Use: No (quit long time ago ) Substance Use: No Allergies-Medications (Allergen,Severity, Reaction): Coded Allergies: Sulfa (Sulfonamide Antibiotics) (Verified Allergy, Severe, Nausea/Vomiting , 01/08/18) *MDRO Multi-Drug Resistant Organism (Verified Adverse Reaction, Unknown, ) 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; (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, 07/01/17 MRSA PCR Screen POSITIVE - 01/23/2017 Reported Meds & Prescriptions Reported Meds & Active Scripts Active Reported Vitamin D3 (Cholecalciferol) 2,000 Unit Cap 2,000 Units PO DAILY Ranitidine (Ranitidine HCl) 150 Mg Tab 150 Mg PO DAILY Aspirin EC (Aspirin) 81 Mg Tabdr 81 Mg PO DAILY Sodium Bicarbonate 325 Mg Tab 325 Mg PO DAILY Xalatan Opth Drops (Latanoprost) 0.005% Drops 1 Drop EACH EYE HS Cardura (Doxazosin Mesylate) 8 Mg Tab 8 Mg PO DAILY Lotensin (Benazepril HCl) 20 Mg Tab 20 Mg PO DAILY Norvasc (Amlodipine Besylate) 5 Mg Tab 5 Mg PO DAILY Review of Systems Except as stated in HPI: all other systems reviewed are Neg Physical Exam Narrative GENERAL: Chronically ill-appearing male patient, lying in bed in no acute distress. SKIN: Focused skin assessment warm/dry. HEAD: Atraumatic. Normocephalic. EYES: Pupils equal and round. No scleral icterus. No injection or drainage. ENT: No nasal bleeding or discharge. Mucous membranes pink and moist. NECK: Trachea midline. No JVD. CARDIOVASCULAR: Regular rate and rhythm. No murmur appreciated. RESPIRATORY: Diminished, even respirations. Patient does appear to be slightly short of breath after talking and any activity within the room.. Breath sounds equal bilaterally. GASTROINTESTINAL: Abdomen soft, non-tender, nondistended. No guarding. No rebound tenderness. Hepatic and splenic margins not palpable. MUSCULOSKELETAL: No obvious deformities. No clubbing. No cyanosis. No edema. Left upper extremity fistula placed positive thrill and bruit. NEUROLOGICAL: Awake and alert. No obvious cranial nerve deficits. Motor grossly within normal limits. Normal speech. PSYCHIATRIC: Appropriate mood and affect; insight and judgment normal. Data Data Last Documented VS Vital Signs Date Time Temp Pulse Resp B/P (MAP) Pulse Ox O2 Delivery O2 Flow Rate FiO2 01/08/18 19:05 99 Nasal Cannula 2.00 01/08/18 18:06 98.2 85 17 180/74 (109) Orders Orders Ct Brain W/O Iv Contrast(Rout) (01/08/18 ) Electrocardiogram (01/08/18 18:24) Basic Metabolic Panel (Bmp) (01/08/18 18:24) Ckmb (Isoenzyme) Profile (01/08/18 18:24) Complete Blood Count With Diff (01/08/18 18:24) Magnesium (Mg) (01/08/18 18:24) Prothrombin Time / Inr (Pt) (01/08/18 18:24) Act Partial Throm Time (Ptt) (01/08/18 18:24) Troponin I (01/08/18 18:24) Lipase (01/08/18 18:24) Chest, Single Ap (01/08/18 18:24) Ecg Monitoring (01/08/18 18:24) Bilateral Bp Monitoring (01/08/18 18:24) Iv Access Insert/Monitor (01/08/18 18:24) Oximetry (01/08/18 18:24) Oxygen Administration (01/08/18 18:24) Sodium Chloride 0.9% Flush (Ns Flush) (01/08/18 18:30) Labs Laboratory Tests Test 01/08/18 18:45 White Blood Count 11.9 TH/MM3 Red Blood Count 2.84 MIL/MM3 Hemoglobin 8.9 GM/DL Hematocrit 25.7 % Mean Corpuscular Volume 90.3 FL Mean Corpuscular Hemoglobin 31.2 PG Mean Corpuscular Hemoglobin Concent 34.6 % Red Cell Distribution Width 16.7 % Platelet Count 208 TH/MM3 Mean Platelet Volume 7.4 FL Neutrophils (%) (Auto) 79.0 % Lymphocytes (%) (Auto) 11.6 % Monocytes (%) (Auto) 6.9 % Eosinophils (%) (Auto) 2.0 % Basophils (%) (Auto) 0.5 % Neutrophils # (Auto) 9.4 TH/MM3 Lymphocytes # (Auto) 1.4 TH/MM3 Monocytes # (Auto) 0.8 TH/MM3 Eosinophils # (Auto) 0.2 TH/MM3 Basophils # (Auto) 0.1 TH/MM3 CBC Comment DIFF FINAL Differential Comment Prothrombin Time 10.6 SEC Prothromb Time International Ratio 1.0 RATIO Activated Partial Thromboplast Time 32.2 SEC Blood Urea Nitrogen 71 MG/DL Creatinine 5.41 MG/DL Random Glucose 133 MG/DL Calcium Level 8.6 MG/DL Magnesium Level 2.3 MG/DL Sodium Level 137 MEQ/L Potassium Level 4.2 MEQ/L Chloride Level 104 MEQ/L Carbon Dioxide Level 23.1 MEQ/L Anion Gap 10 MEQ/L Estimat Glomerular Filtration Rate 10 ML/MIN Total Creatine Kinase 39 U/L Troponin I LESS THAN 0.02 NG/ML Lipase 334 U/L MDM Medical Decision Making Medical Screen Exam Complete: Yes Emergency Medical Condition: Yes Medical Record Reviewed: Yes Differential Diagnosis ACS versus electrolyte abnormality versus pneumonia versus UTI versus TIA versus CVA Narrative Course 82-year-old male presents to emergency department for evaluation. Patient appears tired. He appears short of breath with any activity. He is reporting left-sided chest pain and entire left sided numbness. He has no focal weaknesses or deficits identified on exam. Laboratory Tests Test 01/08/18 18:45 White Blood Count 11.9 TH/MM3 Red Blood Count 2.84 MIL/MM3 Hemoglobin 8.9 GM/DL Hematocrit 25.7 % Mean Corpuscular Volume 90.3 FL Mean Corpuscular Hemoglobin 31.2 PG Mean Corpuscular Hemoglobin Concent 34.6 % Red Cell Distribution Width 16.7 % Platelet Count 208 TH/MM3 Mean Platelet Volume 7.4 FL Neutrophils (%) (Auto) 79.0 % Lymphocytes (%) (Auto) 11.6 % Monocytes (%) (Auto) 6.9 % Eosinophils (%) (Auto) 2.0 % Basophils (%) (Auto) 0.5 % Neutrophils # (Auto) 9.4 TH/MM3 Lymphocytes # (Auto) 1.4 TH/MM3 Monocytes # (Auto) 0.8 TH/MM3 Eosinophils # (Auto) 0.2 TH/MM3 Basophils # (Auto) 0.1 TH/MM3 CBC Comment DIFF FINAL Differential Comment Prothrombin Time 10.6 SEC Prothromb Time International Ratio 1.0 RATIO Activated Partial Thromboplast Time 32.2 SEC Blood Urea Nitrogen 71 MG/DL Creatinine 5.41 MG/DL Random Glucose 133 MG/DL Calcium Level 8.6 MG/DL Magnesium Level 2.3 MG/DL Sodium Level 137 MEQ/L Potassium Level 4.2 MEQ/L Chloride Level 104 MEQ/L Carbon Dioxide Level 23.1 MEQ/L Anion Gap 10 MEQ/L Estimat Glomerular Filtration Rate 10 ML/MIN Total Creatine Kinase 39 U/L Troponin I LESS THAN 0.02 NG/ML Lipase 334 U/L Last Impressions Chest X-Ray 01/08/18 1824 Signed Impressions: Service Date/Time: Monday, January 08, 2018 18:45 - CONCLUSION: 1. No acute intrathoracic disease. Stable exam compared to the prior study. 2. Stable scarring in both lung bases. Micah Villareal MD Head CT 01/08/18 0000 Signed Impressions: Service Date/Time: Monday, January 08, 2018 18:51 - CONCLUSION: 1. Bilateral cortical atrophy characteristic for patient's age. 2. No acute pathology. Micah Villareal MD I discussed the patient my attending physician. Patient continues to be short of breath. He still has some left sided chest pain intermittently. We feel it is in his best interest to stay observation for serial troponins and further evaluation. Diagnosis Primary Impression: Chest pain Qualified Codes: R07.9 - Chest pain, unspecified Additional Impressions: CKD (chronic kidney disease) stage 4, GFR 15-29 ml/min Numbness and tingling of left arm and leg Admitting Information Admitting Physician Requests: Observation Condition: Stable Floridalma Leger Jan 08, 2018 18:24
[2018-01-08] MEDS ORDERED: SODIUM CHLORIDE 0.9% FLUSH 10 ML FLUSH IVF PRN (18:30)
[2018-01-08 18:57] LABS: AUTOMATED NEUTROPHIL # 9.4 TH/MM3 (1.8-7.7); BASOPHIL # 0.1 TH/MM3 (0-0.2); BASOPHIL % 0.5 % (0.0-2.0); EOSINOPHIL # 0.2 TH/MM3 (0-0.4); HEMATOCRIT 25.7 % (39.0-51.0); HEMOGLOBIN 8.9 GM/DL (13.0-17.0); LYMPH % 11.6 % (9.0-44.0); LYMPHOCYTE # 1.4 TH/MM3 (1.0-4.8); MEAN CELL VOLUME 90.3 FL (80.0-100.0); MEAN CORPUSCULAR HEMOGLOBIN 31.2 PG (27.0-34.0); MEAN CORPUSCULAR HGB CONC 34.6 % (32.0-36.0); MEAN PLATELET VOLUME 7.4 FL (7.0-11.0); MONO % 6.9 % (0.0-8.0); MONOCYTE # 0.8 TH/MM3 (0-0.9); PLATELET COUNT 208 TH/MM3 (150-450); RED BLOOD COUNT 2.84 MIL/MM3 (4.50-5.90); RED CELL DISTRIBUTION WIDTH 16.7 % (11.6-17.2); WHITE BLOOD COUNT 11.9 TH/MM3 (4.0-11.0)
--- NOTE | 2018-01-08 19:02 | RADRPT ---
EXAM DATE/TIME: 01/08/2018 18:51 [facility] COMPARISON: No previous studies available for comparison. INDICATIONS : Left sided weakness. RADIATION DOSE: 37.30 CTDIvol (mGy) MEDICAL HISTORY : Cardiovascular disease. Hypertension. Gastroesophageal reflux disease.Renal failure.Ingunial hernia, Hiatial hernia. SURGICAL HISTORY : AV shunt ENCOUNTER: Initial ACUITY: 1 day PAIN SCALE: 0/10 LOCATION: cranial TECHNIQUE: Multiple contiguous axial images were obtained of the head. Using automated exposure control and adj ustment of the mA and/or kV according to patient size, radiation dose was kept as low as reasonably a chievable to obtain optimal diagnostic quality images. DICOM format image data is available electro nically for review and comparison. FINDINGS: There is central and cortical atrophy with mild dila tation of ventricular and sulcal spaces. There is no parenchymal hemorrhage, acute infarction or mas s lesion identified. There are no extra-axial fluid collections appreciated. The posterior fossa is unremarkable with midline fourth ventricle. The portion of the orbits and paranasal sinuses visuali zed are unremarkable. CONCLUSION: 1. Bilateral cortical atrophy characteristic for patient's age. 2. No acute pathology. Micah Villareal MD on January 08, 2018 at 18:58 Board Certified Radiologist. This report was verified electronically.
[2018-01-08 19:05] VITALS: O2SAT 99
[2018-01-08 19:08] LABS: BICARBONATE 23.1 MEQ/L (21.0-32.0); BLOOD UREA NITROGEN 71 MG/DL (7-18); CALCIUM 8.6 MG/DL (8.5-10.1); CHLORIDE 104 MEQ/L (98-107); CREATININE 5.41 MG/DL (0.60-1.30); GLOMERULAR FILTRATION RATE 10 ML/MIN (>89); GLUCOSE,RANDOM 133 MG/DL (74-106); MAGNESIUM 2.3 MG/DL (1.5-2.5); SODIUM (NA) 137 MEQ/L (136-145)
[2018-01-08 19:13] LABS: TROPONIN I LESS THAN 0.02 NG/ML (0.02-0.05)
[2018-01-08 19:15] LABS: PROTHROMBIN TIME - PATIENT 10.6 SEC (9.8-11.6)
--- NOTE | 2018-01-08 19:15 | RADRPT ---
EXAM DATE/TIME: 01/08/2018 18:45 [facility] COMPARISON: CHEST SINGLE AP, August 27, 2016, 7:29. INDICATIONS : Chest pain. MEDICAL HISTORY : Hydronephrosis. SURGICAL HISTORY : Stent. ENCOUNTER: Initial ACUITY: 1 day PAIN SCORE: 5/10 LOCATION: Bilateral chest FINDINGS: A single view of the chest demonstrates the lungs to be symmetrically aerated without evidence of mas s, infiltrate or effusion. There is stable scarring in both lung bases. The cardiomediastinal contou rs are unremarkable. Osseous structures are intact. No significant changes. CONCLUSION: 1. No acute intrathoracic disease. Stable exam compared to the prior study. 2. Stable scarring in both lung bases. Micah Villareal MD on January 08, 2018 at 19:12 Board Certified Radiologist. This report was verified electronically.
[2018-01-08] MEDS ORDERED: BISACODYL 10 MG SUPP RECTAL PRN (20:15)
[2018-01-08] MEDS ORDERED: LACTULOSE SYRUP 20 GM/30 ML CUP PO PRN (20:15)
[2018-01-08] MEDS ORDERED: ACETAMINOPHEN/HYDROcodone 325 MG/10 MG TAB PO PRN (20:15)
[2018-01-08] MEDS ORDERED: SENNOSIDES 8.6 MG TAB PO PRN (20:15)
[2018-01-08] MEDS ORDERED: ACETAMINOPHEN/HYDROcodone 325 MG/5 MG TAB PO PRN (20:15)
[2018-01-08] MEDS ORDERED: SODIUM CHLORIDE 0.9% FLUSH 10 ML FLUSH IV FLUSH PRN (20:15)
[2018-01-08] MEDS ORDERED: ONDANSETRON HCL 4 MG/2 ML VIAL IVP PRN (20:15)
[2018-01-08] MEDS ORDERED: MAGNESIUM HYDROXIDE SUSP 30 ML CUP PO PRN (20:15)
[2018-01-08] MEDS ORDERED: ACETAMINOPHEN 325 MG TAB PO PRN (20:15)
--- NOTE | 2018-01-08 20:17 | HHI.HP ---
[facility] Jeff Jarvis MD Admission Diagnosis chest pain; sob; lue/lle numbness and tingling Diagnoses: (1) Chest pain Diagnosis: Principal (2) ESRD (end stage renal disease) Diagnosis: Principal (3) HTN (hypertension) Diagnosis: Principal Travel History International Travel<30 Days: No Contact w/Intl Traveler <30 Da: No Traveled to Known Affected Are: No History of Present Illness This is an 82-year-old male with a PMH of HTN, Prostate CA, Sleep Apnea, Anemia and ESRD pending HD who presented to the ER w/ complaints of SOB and chest pain. States had iron infusion for anemia today, few hours after infusion developed acute onset of substernal chest pain. Pain is intermittent, sharp, 8/ 10, non-radiating and associated w/ deep breath. Denies fever, chills of cough. States he has first HD scheduled for Thursday, follows w/ Dr. Jha. On arrival, BP 180/74, HR 85, O2 sat 97% on RA, Afebrile. WBC 11.9. Creatinine 5.41, previously 4.99 on 01/07/18. Troponin negative. INR 1.0. CXR with no acute findings. CT Head with bilateral cortical atrophy, no acute findings. Review of Systems Except as stated in HPI: all other systems reviewed are Neg ROS: 14 point review of systems otherwise negative. 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 No h/o DM or CAD Social History PAST SOCIAL HISTORY: Negative for alcohol, tobacco or drugs. Physical Exam Vital Signs Vital Signs Date Time Temp Pulse Resp B/P (MAP) Pulse Ox O2 Delivery O2 Flow Rate FiO2 01/08/18 19:05 99 Nasal Cannula 2.00 01/08/18 18:06 98.2 85 17 180/74 (109) 97 Physical Exam PE: GENERAL: Very pleasant elderly white male in no acute distress. Mild dyspnea w/ speech. HEENT: PERRLA, EOMI. No scleral icterus or conjunctival pallor. No lid lag or facial droop. CARDIOVASCULAR: Regular rate and rhythm. No obvious murmurs to auscultation. No chest tenderness to palpation. RESPIRATORY: No obvious rhonchi or wheezing. Clear to auscultation. Breath sounds equal bilaterally. GASTROINTESTINAL: Abdomen soft, non-tender, nondistended. BS normal. MUSCULOSKELETAL: Extremities without clubbing, cyanosis, or edema. No obvious deformities. LUE fistula w/ good thrill. NEUROLOGICAL: Awake, alert and oriented x4. No focal neurologic deficits. Moving both upper and lower extremities spontaneously. Laboratory Laboratory Tests Test 01/08/18 18:45 White Blood Count 11.9 Red Blood Count 2.84 Hemoglobin 8.9 Hematocrit 25.7 Mean Corpuscular Volume 90.3 Mean Corpuscular Hemoglobin 31.2 Mean Corpuscular Hemoglobin Concent 34.6 Red Cell Distribution Width 16.7 Platelet Count 208 Mean Platelet Volume 7.4 Neutrophils (%) (Auto) 79.0 Lymphocytes (%) (Auto) 11.6 Monocytes (%) (Auto) 6.9 Eosinophils (%) (Auto) 2.0 Basophils (%) (Auto) 0.5 Neutrophils # (Auto) 9.4 Lymphocytes # (Auto) 1.4 Monocytes # (Auto) 0.8 Eosinophils # (Auto) 0.2 Basophils # (Auto) 0.1 CBC Comment DIFF FINAL Differential Comment Prothrombin Time 10.6 Prothromb Time International Ratio 1.0 Activated Partial Thromboplast Time 32.2 Blood Urea Nitrogen 71 Creatinine 5.41 Random Glucose 133 Calcium Level 8.6 Magnesium Level 2.3 Sodium Level 137 Potassium Level 4.2 Chloride Level 104 Carbon Dioxide Level 23.1 Anion Gap 10 Estimat Glomerular Filtration Rate 10 Total Creatine Kinase 39 Troponin I LESS THAN 0.02 Lipase 334 Result Diagram: 01/08/18184401/08/181844 Caprini VTE Risk Assessment Caprini VTE Risk Assessment: No/Low Risk (score <= 1) Caprini Risk Assessment Model Point Value = 1 Point Value = 2 Point Value = 3 Point Value = 5 Age 41-60 Minor surgery BMI > 25 kg/m2 Swollen legs Varicose veins or History of unexplained or recurrent spontaneous Oral contraceptives or hormone replacement Sepsis (< 1 month) Serious lung disease, including pneumonia (< 1 month) Abnormal pulmonary function Acute myocardial infarction Congestive heart failure (< 1 month) History of inflammatory bowel disease Medical patient at bed rest Age 61-74 Arthroscopic surgery Major open surgery (> 45 min) Laparoscopic surgery (> 45 min) Malignancy Confined to bed (> 72 hours) Immobilizing plaster cast Central venous access Age >= 75 History of VTE Family history of VTE Factor V Leiden Prothrombin [id number] Lupus anticoagulant Anticardiolipin antibodies Elevated serum homocysteine Heparin-induced thrombocytopenia Other congenital or acquired thrombophilia Stroke (< 1 month) Elective arthroplasty Hip, pelvis, or leg fracture Acute spinal cord injury (< 1 month) Prophylaxis Regimen Total Risk Factor Score Risk Level Prophylaxis Regimen 0-1 Low Early ambulation 2 Moderate Order ONE of the following: *Sequential Compression Device (SCD) *Heparin 5000 units SQ BID 3-4 Higher Order ONE of the following medications: *Heparin 5000 units SQ TID *Enoxaparin/Lovenox 40 mg SQ daily (WT < 150 kg, CrCl > 30 mL/min) *Enoxaparin/Lovenox 30 mg SQ daily (WT < 150 kg, CrCl > 10-29 mL/min) *Enoxaparin/Lovenox 30 mg SQ BID (WT < 150 kg, CrCl > 30 mL/min) AND/OR *Sequential Compression Device (SCD) 5 or more Highest Order ONE of the following medications: *Heparin 5000 units SQ TID (Preferred with Epidurals) *Enoxaparin/Lovenox 40 mg SQ daily (WT < 150 kg, CrCl > 30 mL/min) *Enoxaparin/Lovenox 30 mg SQ daily (WT < 150 kg, CrCl > 10-29 mL/min) *Enoxaparin/Lovenox 30 mg SQ BID (WT < 150 kg, CrCl > 30 mL/min) AND *Sequential Compression Device (SCD) Assessment and Plan Problem List: (1) Chest pain ICD Code: R07.9 - Chest pain, unspecified Status: Acute (2) ESRD (end stage renal disease) ICD Code: N18.6 - End stage renal disease (3) HTN (hypertension) ICD Code: I10 - Essential (primary) hypertension Assessment and Plan A/P: 1. Chest Pain: r/o ACS, acute onset of substernal chest pain, initial trop negative. Admit for Observation, place on telemetry, check serial cardiac enzymes, start ASA/Statin and Metoprolol. NTG/Morphine prn for chest pain. Consult cardiology if needed for changes in condition or evidence of ischemia. 2. HTN: Uncontrolled. BP 180's, resume home medications, start Metoprolol, monitor BP. 3. ESRD: pending HD, first HD to be started on (01/12/18), follows w/ Dr. Jha as outpatient, will consult as needed. 4. DVT Prophylaxis: Heparin sq 5. Social work for d/c planning as needed. 6. Case discussed w/ ER physician at length, labs/records/imaging reviewed by me. Problem Qualifiers (1) Chest pain: Qualified Codes: R07.9 - Chest pain, unspecified Ivelisse Fulton MD Jan 08, 2018 20:17
[2018-01-08] MEDS: LATANOPROST 0.005% OPHT SOLN 2.5 ML BTL EACH EYE SCH (21:00)
[2018-01-08] MEDS: SODIUM CHLORIDE 0.9% FLUSH 10 ML FLUSH IV FLUSH SCH (21:39)
[2018-01-08] MEDS: DOCUSATE SODIUM 50 MG/SENNA 8.6 MG TAB PO SCH (21:40)
[2018-01-08] MEDS ORDERED: NITROGLYCERIN 2% OINT 1 GM PACKET TOPICAL PRN (22:15)
[2018-01-09] VITALS (9 sets, daily range): BP systolic 100–157; BP diastolic 50–71; PULSE 70–97; RESP 17–20; TEMP 97.4–98.2; O2SAT 95–98
[2018-01-09 08:19] LABS: AUTOMATED NEUTROPHIL # 9.4 TH/MM3 (1.8-7.7); BASOPHIL % 0.3 % (0.0-2.0); EOSINOPHIL % 0.2 % (0.0-4.0); HEMATOCRIT 25.6 % (39.0-51.0); HEMOGLOBIN 8.8 GM/DL (13.0-17.0); LYMPH % 8.5 % (9.0-44.0); LYMPHOCYTE # 0.9 TH/MM3 (1.0-4.8); MEAN CELL VOLUME 89.9 FL (80.0-100.0); MEAN CORPUSCULAR HEMOGLOBIN 31.1 PG (27.0-34.0); MEAN CORPUSCULAR HGB CONC 34.6 % (32.0-36.0); MEAN PLATELET VOLUME 7.3 FL (7.0-11.0); MONOCYTE # 0.7 TH/MM3 (0-0.9); PLATELET COUNT 176 TH/MM3 (150-450); RED BLOOD COUNT 2.85 MIL/MM3 (4.50-5.90); RED CELL DISTRIBUTION WIDTH 16.7 % (11.6-17.2)
[2018-01-09 08:42] LABS: AST (GOT) 8 U/L (15-37); BICARBONATE 19.6 MEQ/L (21.0-32.0); BLOOD UREA NITROGEN 65 MG/DL (7-18); CALCIUM 8.9 MG/DL (8.5-10.1); CHLORIDE 106 MEQ/L (98-107); CREATININE 5.58 MG/DL (0.60-1.30); GLOMERULAR FILTRATION RATE 10 ML/MIN (>89); GLUCOSE,RANDOM 128 MG/DL (74-106); SODIUM (NA) 137 MEQ/L (136-145)
[2018-01-09 08:43] LABS: CHOLESTEROL 92 MG/DL (120-200); TRIGLYCERIDES 70 MG/DL (42-150)
[2018-01-09 08:48] LABS: ALKALINE PHOSPHATASE 79 U/L (45-117); ALT (GPT) 8 U/L (12-78); HDL CHOLESTEROL 38.3 MG/DL (40.0-60.0); LDL CHOLESTEROL 40 MG/DL (0-99); TOTAL BILIRUBIN ADULT 0.8 MG/DL (0.2-1.0); TOTAL PROTEIN 7.3 GM/DL (6.4-8.2); TROPONIN I LESS THAN 0.02 NG/ML (0.02-0.05)
--- NOTE | 2018-01-09 09:01 | HHI.PR ---
Subjective Remarks Follow up for chest pain, shortness of breath. The patient complains of diffuse abdominal pain with radiation to the LLQ. He states he ambulated to the restroom and became nauseous with dry heaving, but no vomiting. He reports normal formed nonbloody BMs. Denies fevers/chills. He believes he last had colonoscopy 2 years ago, reportedly normal. He also continues to have constant substernal chest pains and shortness of breath, worse with exertion. Objective Vitals Vital Signs Date Time Temp Pulse Resp B/P (MAP) Pulse Ox O2 Delivery O2 Flow Rate FiO2 01/09/18 05:02 97.4 87 20 153/71 (98) 98 01/09/18 04:00 96 01/09/18 01:33 90 01/09/18 00:00 97.9 94 20 157/71 (99) 95 01/08/18 19:05 99 Nasal Cannula 2.00 01/08/18 18:06 98.2 85 17 180/74 (109) 97 I/O 01/08/18 01/08/18 01/08/18 01/09/18 01/09/18 01/09/18 07:00 15:00 23:00 07:00 15:00 23:00 Intake Total 240 ml Balance 240 ml Intake Oral 240 ml # Voids 1 Result Diagram: 01/09/18 0620 01/09/18 0620 Imaging Last Impressions Chest X-Ray 01/08/18 1824 Signed Impressions: Service Date/Time: Monday, January 08, 2018 18:45 - CONCLUSION: 1. No acute intrathoracic disease. Stable exam compared to the prior study. 2. Stable scarring in both lung bases. Micha Villareal MD Head CT 01/08/18 0000 Signed Impressions: Service Date/Time: Monday, January 08, 2018 18:51 - CONCLUSION: 1. Bilateral cortical atrophy characteristic for patient's age. 2. No acute pathology. Micah Villareal MD Objective Remarks GENERAL: Well-nourished, well-developed pleasant elderly male patient in [facility]. SKIN: Warm and dry. No rash. HEENT: Normocephalic. Atraumatic. Pupils equal and round. Mucous membranes pink and moist. NECK: Supple. Trachea midline. CARDIOVASCULAR: Regular rate and rhythm. S1, S2 noted. No murmur appreciated. RESPIRATORY: No accessory muscle use. Clear to auscultation. Breath sounds equal bilaterally. GASTROINTESTINAL: Abdomen soft, nondistended, mild TTP at LLQ. Normoactive bowel sounds x4. MUSCULOSKELETAL: No obvious deformities. Extremities without clubbing, cyanosis , or edema. LUE AV fistula, +thrill/bruit. NEUROLOGICAL: Awake and alert. No obvious cranial nerve deficits. Motor grossly within normal limits. Normal speech. PSYCHIATRIC: Appropriate mood and affect; insight and judgment normal. Medications and IVs Current Medications Medications (Trade) Dose Ordered Sig/Rahel Route Start Time Stop Time Status Last Admin (NS Flush) 2 ml UNSCH PRN IVF 01/08/18 18:30 (NS Flush) 2 ml UNSCH PRN IV FLUSH 01/08/18 20:15 (NS Flush) 2 ml BID IV FLUSH 01/08/18 21:00 01/09/18 09:28 (Zofran Inj) 4 mg Q6H PRN IVP 01/08/18 20:15 (Heparin Inj) 5,000 units Q12H SQ 01/09/18 09:00 01/09/18 09:28 (Tylenol) 650 mg Q6H PRN PO 01/08/18 20:15 ([place] 5-325 Mg) 1 tab Q4H PRN PO 01/08/18 20:15 01/08/18 22:31 ([place] 10-325 Mg) 1 tab Q4H PRN PO 01/08/18 20:15 (Elizabeth-Colace) 1 tab BID PO 01/08/18 21:00 01/09/18 09:28 (Milk Of Magnesia Liq) 30 ml Q12H PRN PO 01/08/18 20:15 (Senokot) 17.2 mg Q12H PRN PO 01/08/18 20:15 (Dulcolax Supp) 10 mg DAILY PRN RECTAL 01/08/18 20:15 (Lactulose Liq) 30 ml DAILY PRN PO 01/08/18 20:15 (Norvasc) 5 mg DAILY PO 01/09/18 09:00 01/09/18 09:28 (Ecotrin Ec) 81 mg DAILY PO 01/09/18 09:00 01/09/18 09:28 (Vitamin D3) 2,000 units DAILY PO 01/09/18 09:00 01/09/18 09:27 (Cardura) 8 mg DAILY PO 01/09/18 09:00 01/09/18 09:28 (Xalatan 0.005% Opth Soln) 1 drop HS EACH EYE 01/08/18 21:00 (Sodium Bicarbonate) 325 mg DAILY PO 01/09/18 09:00 01/09/18 09:28 (Pepcid) 20 mg DAILY PO 01/09/18 09:00 01/09/18 09:27 (Pravachol) 40 mg DAILY PO 01/09/18 09:00 01/09/18 09:28 (Lopressor) 25 mg Q12HR PO 01/09/18 09:00 01/09/18 09:28 (Nitroglycerin 2% Oint) 0.5 inch Q6HR PRN TOPICAL 01/08/18 22:15 A/P Problem List: (1) Chest pain ICD Code: R07.9 - Chest pain, unspecified Status: Acute (2) ESRD (end stage renal disease) ICD Code: N18.6 - End stage renal disease (3) HTN (hypertension) ICD Code: I10 - Essential (primary) hypertension Assessment and Plan 82-year-old male with a PMH of HTN, Prostate CA, Sleep Apnea, Anemia and ESRD pending HD who presented to the ER w/ complaints of SOB and chest pain. Atypical Chest Pain: no hx of CAD. Possibly fluid overload? Patient planning to start dialysis on 01/13. -ACS ruled out with negative serial cardiac enzymes x3, and EKG without acute ischemic changes -Given, Aspirin, statin, metoprolol, nitro/morphine prn pain -Monitor on telemetry -possibly GI related, patient reports diffuse abdominal pain worse at LLQ, check abdominal CT HTN: Uncontrolled. BP 180's upon arrival -continue patient's Norvasc -also started on metoprolol as above -monitor BP, adjust antihypertensives as needed ESRD: pending HD, first HD to be started on (01/12/18). Has LUE AVF. -follows w/ Dr. Jha as outpatient, will consult Anemia: Hgb 8.8, baseline around 9. S/p outpatient IV iron transfusion 01/08 -no signs of active bleeding -check hemoccult -continue to monitor DVT Prophylaxis: Heparin sq Problem Qualifiers (1) Chest pain: Qualified Codes: R07.9 - Chest pain, unspecified Whitney Erickson PA-C Jan 09, 2018 9:01 am
[2018-01-09] MEDS: FAMOTIDINE 20 MG TAB PO SCH (09:27)
[2018-01-09] MEDS: CHOLECALCIFEROL (VIT D3) 1000 UNIT TAB PO SCH (09:27)
[2018-01-09] MEDS: ASPIRIN EC 81 MG TABEC PO SCH (09:28)
[2018-01-09] MEDS: DOCUSATE SODIUM 50 MG/SENNA 8.6 MG TAB PO SCH ×2 (09:28→20:36)
[2018-01-09] MEDS: amLODIPine BESYLATE 5 MG TAB PO SCH (09:28)
[2018-01-09] MEDS: HEPARIN SODIUM - SQ 10,000 UNITS/ML VIAL SQ SCH ×2 (09:28→20:37)
[2018-01-09] MEDS: METOPROLOL TARTRATE 25 MG TAB PO SCH ×2 (09:28→20:36)
[2018-01-09] MEDS: SODIUM BICARBONATE 325 MG TAB PO SCH (09:28)
[2018-01-09] MEDS: PRAVASTATIN SOD 40 MG TAB PO SCH (09:28)
[2018-01-09] MEDS: DOXAZOSIN MESYLATE 4 MG TAB PO SCH (09:28)
[2018-01-09] MEDS: SODIUM CHLORIDE 0.9% FLUSH 10 ML FLUSH IV FLUSH SCH ×2 (09:28→20:37)
[2018-01-09] MEDS ORDERED: DIATRIZOATE MEGLUM/DIATRIZOATE SOD 9 ML CUP PO ONE (10:30)
[2018-01-09] MEDS ORDERED: diphenhydrAMINE HCL 25 MG CAP PO PRN (14:15)
[2018-01-09] MEDS ORDERED: EPOETIN ALFA 10,000 UNITS/ML VIAL IV PUSH PRN (14:15)
[2018-01-09] MEDS ORDERED: SODIUM CHLOR 0.9% 1000 ML INJ 1,000 ML IV PRN (14:15)
[2018-01-09] MEDS ORDERED: GELATIN 12 MM/7 MM FOAM TOP PRN (14:15)
[2018-01-09] MEDS ORDERED: ACETAMINOPHEN 325 MG TAB PO PRN (14:15)
[2018-01-09] MEDS ORDERED: SODIUM CHLOR 0.9% 1000 ML INJ 1,000 ML OTHER PRN ×2 (14:15)
[2018-01-09] MEDS ORDERED: ONDANSETRON HCL 4 MG/2 ML VIAL IV PUSH PRN (14:15)
[2018-01-09] MEDS ORDERED: cloNIDine HCL 0.1 MG TAB PO PRN (14:15)
[2018-01-09] MEDS ORDERED: LIDOCAINE-PRILOCAIN 2.5% CREAM 5 GM TUBE TOPICAL PRN (14:15)
[2018-01-09] MEDS ORDERED: HEPARIN SODIUM - IV 10,000 UNITS/10 ML VIAL IV FLUSH PRN (14:15)
[2018-01-09] MEDS ORDERED: NITROGLYCERIN 0.4 MG SL 25 TABS/BTL SL PRN (14:15)
[2018-01-09] MEDS ORDERED: SODIUM CHLORIDE 0.9% FLUSH 10 ML FLUSH IV FLUSH PRN (14:15)
--- NOTE | 2018-01-09 14:40 | PD.CONS ---
HPI Consult Requested By Reason for Consult CKD stage V with uremic symptoms. Primary Care Physician Jeff Jarvis MD History of Present Illness This is a very pleasant 82-year-old male with a history of chronic kidney disease which recently progressed to CKD stage V. He was seen in the office a few weeks ago and noted to have worsening renal function. His renal function had been declining for several years now. He has a history of obstructive uropathy and was having ureteral stents changed routinely. Prior to his last visit in the office he was referred back to urology despite recent stent exchange to determine whether or not there is evidence of stent malfunction. Unfortunately despite recent replacement of stent there was no improvement in his renal function and it appears that the patient has progressed to end-stage renal disease as discussed with him during an office visit this week. He was to start dialysis as an outpatient electively but now presents to the hospital with complaints of nausea and dry heaves. Increasing fatigue. Patient does have matured AV dialysis fistula in place in preparation for dialysis. He also has a history of anemia renal disease and also has been requiring intermittent iron infusions.. Review of Systems Constitutional: COMPLAINS OF: Fatigue, Change in appetite, DENIES: Diaphoretic episodes, Fever, Weight gain, Weight loss, Chills, Dizziness, Night Sweats Cardiovascular: DENIES: Chest pain, Palpitations, Syncope, Dyspnea on Exertion , PND, Lower Extremity Edema, Orthopnea, Claudication Gastrointestinal: COMPLAINS OF: Nausea, Vomiting, Anorexia, DENIES: Abdominal pain, Black stools, Bloody stools, Constipation, Diarrhea, Difficulty Swallowing Musculoskeletal: COMPLAINS OF: Joint pain, DENIES: Muscle aches, Stiffness, Joint Swelling, Back pain, Neck pain Psychiatric: DENIES: Anxiety, Confusion, Mood changes, Depression, Hallucinations, Agitation, Suicidal Ideation, Homicidal Ideation, Delusions Past Family Social History Allergies: Coded Allergies: Sulfa (Sulfonamide Antibiotics) (Verified Allergy, Severe, Nausea/Vomiting , 01/08/18) *MDRO Multi-Drug Resistant Organism (Verified Adverse Reaction, Unknown, ) 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 History of prostatic CA. Sleep apnea Anemia CKD. Hypertension. Chronic metabolic acidosis that was being managed with sodium bicarbonate orally as an outpatient. Past Surgical History Placement of an upper extremity AV fistula in preparation for dialysis. Multiple cystoscopies with urological procedures with ureteral stent placement.. Reported Medications Vitamin D3 (Cholecalciferol) 2,000 Unit Cap 2,000 Units PO DAILY Ranitidine (Ranitidine HCl) 150 Mg Tab 150 Mg PO DAILY Aspirin EC (Aspirin) 81 Mg Tabdr 81 Mg PO DAILY Sodium Bicarbonate 325 Mg Tab 325 Mg PO DAILY Xalatan Opth Drops (Latanoprost) 0.005% Drops 1 Drop EACH EYE HS Cardura (Doxazosin Mesylate) 8 Mg Tab 8 Mg PO DAILY Lotensin (Benazepril HCl) 20 Mg Tab 20 Mg PO DAILY Norvasc (Amlodipine Besylate) 5 Mg Tab 5 Mg PO DAILY Active Ordered Medications Current Medications Sodium Chloride (NS Flush) 2 ml UNSCH PRN IVF FLUSH AFTER USING IV ACCESS; Start 01/08/18 at 18:30; Stop 01/09/18 at 10:25; Status DC Sodium Chloride (NS Flush) 2 ml UNSCH PRN IV FLUSH FLUSH AFTER USING IV ACCESS ; Start 01/08/18 at 20:15 Sodium Chloride (NS Flush) 2 ml BID IV FLUSH Last administered on 01/09/18at 09: 28; Start 01/08/18 at 21:00 Ondansetron HCl (Zofran Inj) 4 mg Q6H PRN IVP NAUSEA OR VOMITING; Start at 20:15 Heparin Sodium (Porcine) (Heparin Inj) 5,000 units Q12H SQ Last administered on 01/09/18at 09:28; Start 01/09/18 at 09:00 Acetaminophen (Tylenol) 650 mg Q6H PRN PO FEVER/PAIN SCALE 1 TO 2; Start at 20:15 Acetaminophen/ Hydrocodone Bitart ([place] 5-325 Mg) 1 tab Q4H PRN PO PAIN SCALE 3 TO 5 Last administered on 01/08/18at 22:31; Start 01/08/18 at 20:15 Acetaminophen/ Hydrocodone Bitart ([place] 10-325 Mg) 1 tab Q4H PRN PO PAIN SCALE 6 TO 10; Start 01/08/18 at 20:15 Senna/Docusate Sodium (Elizabeth-Colace) 1 tab BID PO Last administered on 09:28; Start 01/08/18 at 21:00 Magnesium Hydroxide (Milk Of Magnesia Liq) 30 ml Q12H PRN PO Mild constipation ; Start 01/08/18 at 20:15 Sennosides (Senokot) 17.2 mg Q12H PRN PO Moderate constipation; Start 01/08/18 at 20:15 Bisacodyl (Dulcolax Supp) 10 mg DAILY PRN RECTAL SEVERE CONSITIPATION; Start at 20:15 Lactulose (Lactulose Liq) 30 ml DAILY PRN PO SEVERE CONSITIPATION; Start at 20:15 Amlodipine Besylate (Norvasc) 5 mg DAILY PO Last administered on 01/09/18 09: 28; Start 01/09/18 at 09:00 Aspirin (Ecotrin Ec) 81 mg DAILY PO Last administered on 01/09/18 09:28; Start 01/09/18 at 09:00 Cholecalciferol (Vitamin D3) 2,000 units DAILY PO Last administered on 09:27; Start 01/09/18 at 09:00 Doxazosin Mesylate (Cardura) 8 mg DAILY PO Last administered on 01/09/18 09:28 ; Start 01/09/18 at 09:00 Latanoprost (Xalatan 0.005% Opt Soln) 1 drop HS EACH EYE ; Start 01/08/18 at 21: 00 Sodium Bicarbonate (Sodium Bicarbonate) 325 mg DAILY PO Last administered on 09:28; Start 01/09/18 at 09:00 Famotidine (Pepcid) 20 mg DAILY PO Last administered on 01/09/18 09:27; Start 01/09/18 at 09:00 Pravastatin Sodium (Pravachol) 40 mg DAILY PO Last administered on 01/09/18 09 :28; Start 01/09/18 at 09:00 Metoprolol Tartrate (Lopressor) 25 mg Q12HR PO Last administered on 01/09/18 09:28; Start 01/09/18 at 09:00 Nitroglycerin (Nitroglycerin 2% Oint) 0.5 inch Q6HR PRN TOPICAL CHEST PAIN; Start 01/08/18 at 22:15 Diatrizoate Meglum/ Diatrizoate Sod (Md Amado Hicks) 18 ml ONCE ONCE PO Last administered on 01/09/18at 10:30; Start 01/09/18 at 10:30; Stop 01/09/18 at 10:31; Status DC Lidocaine/ Prilocaine (Emla Cream) 1 applic UNSCH PRN TOPICAL WITH DIALYSIS; Start 01/09/18 at 14:15 Sodium Chloride 1,000 ml @ 0 mls/hr Q0M PRN OTHER For Prime & Rinse Back; Start 01/09/18 at 14:15; Status UNV Heparin Sodium (Porcine) (Heparin Inj) 8,000 units UNSCH PRN IV FLUSH WITH DIALYSIS; Start 01/09/18 at 14:15; Status UNV Sodium Chloride 1,000 ml @ 200 mls/hr Q5H PRN IV WITH DIALYSIS; Start 01/09/18 at 14:15; Status UNV Sodium Chloride 1,000 ml @ 0 mls/hr Q0M PRN OTHER WITH DIALYSIS; Start at 14:15; Status UNV Albumin Human 100 ml @ 60 mls/hr UNSCH PRN IV WITH DIALYSIS; Start 01/09/18 at 14:15; Status UNV Sodium Chloride (NS Flush) 5 ml UNSCH PRN IV FLUSH WITH DIALYSIS; Start at 14:15; Status UNV Ondansetron HCl (Zofran Inj) 4 mg UNSCH PRN IV PUSH WITH DIALYSIS; Start at 14:15; Status UNV Acetaminophen (Tylenol) 650 mg UNSCH PRN PO for headach, pain, temp > 101F; Start 01/09/18 at 14:15; Status UNV Diphenhydramine HCl (Benadryl) 25 mg UNSCH PRN PO for hives/itching/anaphylaxis ; Start 01/09/18 at 14:15; Status UNV Nitroglycerin (Nitrostat Sl) 0.4 mg UNSCH PRN SL CHEST PAIN; Start 01/09/18 at 14:15; Status UNV Clonidine (Catapres) 0.1 mg UNSCH PRN PO for BP > 180/100 X 2 readings; Start 01/09/18 at 14:15; Status UNV Epoetin Mitch (Epogen Inj) 8,000 units UNSCH PRN IV PUSH WITH DIALYSIS; Start at 14:15; Status UNV Gelatin (Gelfoam 12 Mm/7 Mm Top) 1 foam UNSCH PRN TOP SEE LABEL COMMENTS; Start 01/09/18 at 14:15; Status UNV Vitamin B Complex/ Vit C/Folic Acid (Nephrocaps) 1 cap DAILY PO ; Start at 14:15; Status UNV Family History Noncontributory to current complaint. Social History No history of alcohol tobacco abuse. No history of illicit drug use. Physical Exam Vital Signs Vital Signs Date Time Temp Pulse Resp B/P (MAP) Pulse Ox O2 Delivery O2 Flow Rate FiO2 01/09/18 09:47 98.2 70 20 155/70 (98) 98 01/09/18 05:02 97.4 87 20 153/71 (98) 98 01/09/18 04:00 96 01/09/18 01:33 90 01/09/18 00:00 97.9 94 20 157/71 (99) 95 01/08/18 19:05 99 Nasal Cannula 2.00 01/08/18 18:06 98.2 85 17 180/74 (109) 97 Physical Exam GENERAL: Not in respiratory distress clinically. SKIN: Warm and dry. HEAD: Normocephalic. EYES: No scleral icterus. No injection or drainage. NECK: Supple, trachea midline. No JVD or lymphadenopathy. CARDIOVASCULAR: Regular rate and rhythm without murmurs, gallops, or rubs. RESPIRATORY: Breath sounds equal bilaterally. No accessory muscle use. GASTROINTESTINAL: Abdomen soft, non-tender, nondistended. MUSCULOSKELETAL: No cyanosis, or edema. BACK: No CVA tenderness. Laboratory Laboratory Tests Test 01/08/18 18:45 01/09/18 01:26 01/09/18 06:20 White Blood Count 11.9 11.0 Red Blood Count 2.84 2.85 Hemoglobin 8.9 8.8 Hematocrit 25.7 25.6 Mean Corpuscular Volume 90.3 89.9 Mean Corpuscular Hemoglobin 31.2 31.1 Mean Corpuscular Hemoglobin Concent 34.6 34.6 Red Cell Distribution Width 16.7 16.7 Platelet Count 208 176 Mean Platelet Volume 7.4 7.3 Neutrophils (%) (Auto) 79.0 85.0 Lymphocytes (%) (Auto) 11.6 8.5 Monocytes (%) (Auto) 6.9 6.0 Eosinophils (%) (Auto) 2.0 0.2 Basophils (%) (Auto) 0.5 0.3 Neutrophils # (Auto) 9.4 9.4 Lymphocytes # (Auto) 1.4 0.9 Monocytes # (Auto) 0.8 0.7 Eosinophils # (Auto) 0.2 0.0 Basophils # (Auto) 0.1 0.0 CBC Comment DIFF FINAL DIFF FINAL Differential Comment Prothrombin Time 10.6 Prothromb Time International Ratio 1.0 Activated Partial Thromboplast Time 32.2 Blood Urea Nitrogen 71 65 Creatinine 5.41 5.58 Random Glucose 133 128 Calcium Level 8.6 8.9 Magnesium Level 2.3 Sodium Level 137 137 Potassium Level 4.2 4.3 Chloride Level 104 106 Carbon Dioxide Level 23.1 19.6 Anion Gap 10 11 Estimat Glomerular Filtration Rate 10 10 Total Creatine Kinase 39 Troponin I LESS THAN 0.02 LESS THAN 0.02 LESS THAN 0.02 Lipase 334 Total Protein 7.3 Albumin 3.0 Alkaline Phosphatase 79 Aspartate Amino Transf (AST/SGOT) 8 Alanine Aminotransferase (ALT/SGPT) 8 Total Bilirubin 0.8 Triglycerides Level 70 Cholesterol Level 92 LDL Cholesterol 40 HDL Cholesterol 38.3 Cholesterol/HDL Ratio 2.40 Result Diagram: 01/09/1861901/09/18619 Assessment and Plan Problem List: (1) CKD (chronic kidney disease) stage 5, GFR less than 15 ml/min ICD Codes: N18.5 - Chronic kidney disease, stage 5 Plan: The patient does have a history of progressive CKD and the patient was counseled for some time now regarding his apparent progression towards CKD 5 with an indication to initiate dialysis if he so desired. Patient indicated that he wished to initiate dialysis when he developed end-stage renal disease and a fistula was placed in preparation for same. Despite ongoing urological management and recent stent exchange there was no improvement in the patient's renal indices and his progressive azotemia was felt to be related to intrinsic renal disease and not reversible. He was tentatively scheduled to initiate dialysis this coming Thursday as an outpatient now presents to the emergency room with increasing fatigue, nausea and dry heaves. He appears to be becoming uremic. In view of this dialysis will be initiated in house today. He was counseled regarding indications for, alternatives to and risks associated with dialysis including risk of hypotension, arrhythmia, . He agrees to proceed. The dialysis nurse has been contacted and dialysis orders have been entered. medications should be adjusted for his end-stage renal disease when indicated. Patient qualifies for full admit status in view of initiation of dialysis for uremic azotemia.. Avoid gadolinium. (2) Anemia of renal disease ICD Codes: D63.1 - Anemia in chronic kidney disease Plan: Continue Epogen for anemia renal disease. (3) Hypertension ICD Codes: I10 - Essential (primary) hypertension Status: Acute (4) Obstructive uropathy ICD Codes: N13.9 - Obstructive and reflux uropathy, unspecified Plan: As indicated above patient has a long-standing history of urological management for curative uropathy with intermittent stent change. Despite urological management patient has progressed to end-stage renal disease secondary to progression of intrinsic renal disease. He did recently have stent exchange in the hope that they would be improvement in his renal function but this has not occurred. Follow-up with urology post discharge. Piyush Jha MD Jan 09, 2018 14:40
[2018-01-09] MEDS: VITAMIN B CMPLX/VITC/FOLIC AC CAP PO SCH (14:50)
[2018-01-09] MEDS: ALBUMIN 25% INJ 100 ML IV PRN ×2 (16:00→16:05)
[2018-01-09 16:38] LABS: BILIRUBIN, URINE NEG (NEG); BLOOD, URINE NEG (NEG); GLUCOSE,URINE NEG (NEG); KETONE, URINE NEG (NEG); NITRITE,URINE NEG (NEG); PH, URINE 6.5 (5.0-8.5); SQUAMOUS EPITHELIAL CELL URINE <1 /hpf (0-5); TRANSITIONAL EPI CELLS, URINE <1 /hpf; URINE COLOR YELLOW (YELLW/STRAW); URINE LEUKOCYTE ESTERASE SMALL (NEG)
[2018-01-09] MEDS: LATANOPROST 0.005% OPHT SOLN 2.5 ML BTL EACH EYE SCH (20:38)
--- NOTE | 2018-01-09 21:22 | RADRPT ---
EXAM DATE/TIME: 01/09/2018 21:06 [facility] COMPARISON: CT ABDOMEN & PELVIS W/O CONTRAST, January 23, 2017, 0:23. INDICATIONS : Abdomen pain. ORAL CONTRAST: Prescribed oral contrast ingested. RADIATION DOSE: 13.47 CTDIvol (mGy) MEDICAL HISTORY : Cardiovascular disease. Hypertension. Renal failure, chronic. SURGICAL HISTORY : Prostatectomy. AV shunt, ureteral stents. ENCOUNTER: Initial ACUITY: 1 day PAIN SCALE: 5/10 LOCATION: Bilateral abdomen TECHNIQUE: Volumetric scanning of the abdomen and pelvis was performed. Using automated exposure control and ad justment of the mA and/or kV according to patient size, radiation dose was kept as low as reasonably achievable to obtain optimal diagnostic quality images. DICOM format image data is available electro nically for review and comparison. FINDINGS: LOWER LUNGS: Stable miliary and interstitial densities in the posterior costophrenic angle both lower lungs. Stab le moderate size hiatus hernia. LIVER: Stable configuration of the liver for noncontrast technique. Few punctate calcifications throughout the parenchyma. Numerous calcified gallstones similar to prior. SPLEEN: Normal size. Diffuse punctate granulomatous calcifications. PANCREAS: Within normal limits. KIDNEYS: Bilateral hydronephrosis and bilateral stents extending from the extrarenal pelvis into the urinary b ladder stop stable dilation of both ureters. ADRENAL GLANDS: Within normal limits. VASCULAR: There is no aortic aneurysm. Stable wall calcification. BOWEL/MESENTERY: No dilated loops of small or large bowel. Oral contrast passes through to the transverse colon. Num erous diverticula throughout the sigmoid without radiographic evidence of diverticulitis. No evidenc e of free fluid. ABDOMINAL WALL: Within normal limits. RETROPERITONEUM: There is no lymphadenopathy. BLADDER: No wall thickening or mass. REPRODUCTIVE: Prosthesis device in place. INGUINAL: There is no lymphadenopathy or hernia. MUSCULOSKELETAL: Within normal limits for patient age. CONCLUSION: No acute findings. Multiple stable findings including numerous calcified gallstones, large hiatus he rnia, bilateral hydronephrosis with bilateral ureteral stents and extensive diverticulosis of the sig moid and left colon. Yordy Frey MD on January 09, 2018 at 21:14 Board Certified Radiologist. This report was verified electronically.
--- NOTE | 2018-01-09 23:48 | EKG ---
Date Performed: 01/08/2018 Time Performed: 19:01:56 PTAGE: 82 years EKG: Sinus rhythm MINIMAL ST DEPRESSION BORDERLINE ECG PREVIOUS TRACING : 08/27/2016 14.03 Since the prior tracing, there has been no significant de la cruz DOCTOR: Yoseph Neal Interpretating Date/Time 01/09/2018 23:46:27
[2018-01-10] VITALS (16 sets, daily range): BP systolic 109–140; BP diastolic 56–65; PULSE 90–104; RESP 16–20; TEMP 97.6–100.1; O2SAT 96–99
[2018-01-10 07:02] LABS: MEAN CELL VOLUME 89.5 FL (80.0-100.0); MEAN CORPUSCULAR HEMOGLOBIN 31.8 PG (27.0-34.0); MEAN CORPUSCULAR HGB CONC 35.5 % (32.0-36.0); MEAN PLATELET VOLUME 7.2 FL (7.0-11.0); PLATELET COUNT 130 TH/MM3 (150-450); RED CELL DISTRIBUTION WIDTH 16.6 % (11.6-17.2); WHITE BLOOD COUNT 6.5 TH/MM3 (4.0-11.0)
[2018-01-10 07:16] LABS: HEMATOCRIT 18.8 % (39.0-51.0); HEMOGLOBIN 6.7 GM/DL (13.0-17.0)
[2018-01-10 07:28] LABS: ALBUMIN 3.1 GM/DL (3.4-5.0); BICARBONATE 27.1 MEQ/L (21.0-32.0); CALCIUM 8.4 MG/DL (8.5-10.1); CREATININE 4.63 MG/DL (0.60-1.30); PHOSPHORUS 3.3 MG/DL (2.5-4.9)
[2018-01-10 08:00] LABS: BACTERIA, URINE MOD /hpf; BILIRUBIN, URINE NEG (NEG); BLOOD, URINE MOD (NEG); GLUCOSE,URINE NEG (NEG); KETONE, URINE NEG (NEG); NITRITE,URINE NEG (NEG); SQUAMOUS EPITHELIAL CELL URINE 7 /hpf (0-5); URINE COLOR YELLOW (YELLW/STRAW); URINE LEUKOCYTE ESTERASE LARGE (NEG); WHITE BLOOD CELL CLUMPS MANY
[2018-01-10] MEDS: amLODIPine BESYLATE 5 MG TAB PO SCH (09:00)
[2018-01-10] MEDS: METOPROLOL TARTRATE 25 MG TAB PO SCH ×2 (09:00→22:16)
[2018-01-10] MEDS: VITAMIN B CMPLX/VITC/FOLIC AC CAP PO SCH (09:00)
--- NOTE | 2018-01-10 09:55 | HHI.PR ---
Subjective Remarks Follow up for shortness of breath, nausea, dry heaves, abdominal pain. The patient reports feeling better today after receiving dialysis yesterday. Denies any further abdominal pain or nausea. He denies any current chest pain or shortness of breath. He also denies any dysuria, increased urinary frequency/ urgency. Denies fevers/chills. Hemoglobin noted to be 6.7 today. Denies any lightheadedness/dizziness. Patient reports recent iron transfusion 2 days ago, but has not required any recent blood transfusions. Objective Vitals Vital Signs Date Time Temp Pulse Resp B/P (MAP) Pulse Ox O2 Delivery O2 Flow Rate FiO2 01/10/18 08:46 99.2 96 18 138/62 (87) 97 01/09/18 23:48 97.9 92 18 110/55 (73) 97 01/09/18 21:40 95 21 01/09/18 19:08 98.0 97 17 115/58 (77) 97 01/09/18 14:45 98.2 76 20 100/50 (67) 97 I/O 01/09/18 01/09/18 01/09/18 01/10/18 01/10/18 01/10/18 07:00 15:00 23:00 07:00 15:00 23:00 Intake Total 240 ml Output Total 500 ml Balance 240 ml -500 ml Intake Oral 240 ml Output Hemodialysis 500 ml # Voids 1 2 Result Diagram: 01/10/18 0550 01/10/18 0550 Imaging Last Impressions Abdomen/Pelvis CT 01/09/18 0000 Signed Impressions: Service Date/Time: Tuesday, January 09, 2018 21:06 - CONCLUSION: No acute findings. Multiple stable findings including numerous calcified gallstones, large hiatus hernia, bilateral hydronephrosis with bilateral ureteral stents and extensive diverticulosis of the sigmoid and left colon. Yordy Frey MD Chest X-Ray 01/08/18 1824 Signed Impressions: Service Date/Time: Monday, January 08, 2018 18:45 - CONCLUSION: 1. No acute intrathoracic disease. Stable exam compared to the prior study. 2. Stable scarring in both lung bases. Micah Villareal MD Head CT 01/08/18 0000 Signed Impressions: Service Date/Time: Monday, January 08, 2018 18:51 - CONCLUSION: 1. Bilateral cortical atrophy characteristic for patient's age. 2. No acute pathology. Micah Villareal MD Objective Remarks GENERAL: Well-nourished, well-developed pleasant elderly male patient in [facility]. SKIN: Warm and dry. No rash. HEENT: Normocephalic. Atraumatic. Pupils equal and round. Mucous membranes pink and moist. CARDIOVASCULAR: Regular rate and rhythm. S1, S2 noted. No murmur appreciated. RESPIRATORY: No accessory muscle use. Clear to auscultation. Breath sounds equal bilaterally. GASTROINTESTINAL: Abdomen soft, nondistended, nontender today. Normoactive bowel sounds x4. MUSCULOSKELETAL: No obvious deformities. Extremities without clubbing, cyanosis , or edema. LUE AV fistula, +thrill/bruit. NEUROLOGICAL: Awake and alert. No obvious cranial nerve deficits. Motor grossly within normal limits. Normal speech. PSYCHIATRIC: Appropriate mood and affect; insight and judgment normal. Medications and IVs Current Medications Medications (Trade) Dose Ordered Sig/Rahel Route Start Time Stop Time Status Last Admin (NS Flush) 2 ml UNSCH PRN IV FLUSH 01/08/18 20:15 (NS Flush) 2 ml BID IV FLUSH 01/08/18 21:00 01/09/18 20:37 (Zofran Inj) 4 mg Q6H PRN IVP 01/08/18 20:15 (Heparin Inj) 5,000 units Q12H SQ 01/09/18 09:00 01/09/18 20:37 (Tylenol) 650 mg Q6H PRN PO 01/08/18 20:15 ([place] 5-325 Mg) 1 tab Q4H PRN PO 01/08/18 20:15 01/08/18 22:31 ([place] 10-325 Mg) 1 tab Q4H PRN PO 01/08/18 20:15 (Elizabeth-Colace) 1 tab BID PO 01/08/18 21:00 01/09/18 20:36 (Milk Of Magnesia Liq) 30 ml Q12H PRN PO 01/08/18 20:15 (Senokot) 17.2 mg Q12H PRN PO 01/08/18 20:15 (Dulcolax Supp) 10 mg DAILY PRN RECTAL 01/08/18 20:15 (Lactulose Liq) 30 ml DAILY PRN PO 01/08/18 20:15 (Norvasc) 5 mg DAILY PO 01/09/18 09:00 01/09/18 09:28 (Ecotrin Ec) 81 mg DAILY PO 01/09/18 09:00 01/09/18 09:28 (Vitamin D3) 2,000 units DAILY PO 01/09/18 09:00 01/09/18 09:27 (Cardura) 8 mg DAILY PO 01/09/18 09:00 01/09/18 09:28 (Xalatan 0.005% Opth Soln) 1 drop HS EACH EYE 01/08/18 21:00 (Sodium Bicarbonate) 325 mg DAILY PO 01/09/18 09:00 01/09/18 09:28 (Pepcid) 20 mg DAILY PO 01/09/18 09:00 01/09/18 09:27 (Pravachol) 40 mg DAILY PO 01/09/18 09:00 01/09/18 09:28 (Lopressor) 25 mg Q12HR PO 01/09/18 09:00 01/09/18 20:36 (Nitroglycerin 2% Oint) 0.5 inch Q6HR PRN TOPICAL 01/08/18 22:15 (Emla Cream) 1 applic UNSCH PRN TOPICAL 01/09/18 14:15 Sodium Chloride 1,000 ml @ 0 mls/hr Q0M PRN OTHER 01/09/18 14:15 (Heparin Inj) 8,000 units UNSCH PRN IV FLUSH 01/09/18 14:15 Sodium Chloride 1,000 ml @ 200 mls/hr Q5H PRN IV 01/09/18 14:15 Sodium Chloride 1,000 ml @ 0 mls/hr Q0M PRN OTHER 01/09/18 14:15 Albumin Human 100 ml @ 60 mls/hr UNSCH PRN IV 01/09/18 14:15 01/09/18 16:05 (NS Flush) 5 ml UNSCH PRN IV FLUSH 01/09/18 14:15 (Zofran Inj) 4 mg UNSCH PRN IV PUSH 01/09/18 14:15 01/09/18 15:35 (Tylenol) 650 mg UNSCH PRN PO 01/09/18 14:15 (Benadryl) 25 mg UNSCH PRN PO 01/09/18 14:15 (Nitrostat Sl) 0.4 mg UNSCH PRN SL 01/09/18 14:15 (Catapres) 0.1 mg UNSCH PRN PO 01/09/18 14:15 (Epogen Inj) 8,000 units UNSCH PRN IV PUSH 01/09/18 14:15 01/09/18 16:18 (Gelfoam 12 Mm/7 Mm Top) 1 foam UNSCH PRN TOP 01/09/18 14:15 01/09/18 16:28 (Nephrocaps) 1 cap DAILY PO 01/09/18 15:00 01/09/18 14:50 A/P Problem List: (1) Chest pain ICD Code: R07.9 - Chest pain, unspecified Status: Acute (2) ESRD (end stage renal disease) ICD Code: N18.6 - End stage renal disease (3) HTN (hypertension) ICD Code: I10 - Essential (primary) hypertension Assessment and Plan 82-year-old male with a PMH of HTN, Prostate CA, Sleep Apnea, Anemia and ESRD pending HD who presented to the ER w/ complaints of SOB and chest pain. Atypical Chest Pain: no hx of CAD. Possibly fluid overload? Patient planning to start dialysis on 01/13. -ACS ruled out with negative serial cardiac enzymes x3, and EKG without acute ischemic changes -Given, Aspirin, statin, metoprolol, nitro/morphine prn pain -Monitor on telemetry -chest pains resolved following dialysis HTN: Uncontrolled. BP 180's upon arrival -continue patient's Norvasc -also started on metoprolol as above -monitor BP, adjust antihypertensives as needed ESRD: pending HD, first HD to be started on (01/12/18). Has LUE AVF. -follows w/ Dr. Jha as outpatient, consulted -patient received dialysis in hospital on 01/09 -plan for repeat dialysis today -monitor renal function, improving Anemia: Hgb 8.8, baseline around 9. S/p outpatient IV iron transfusion 01/08 -no signs of active bleeding -check hemoccult -Hgb dropped to 6.7 today -Ordered blood transfusion pRBC x1u, to be given with dialysis today -nephrology following -Monitor CBC Abdominal Pain: patient reported LLQ abdominal pain and nausea/dry heaves. CT abd/pelvis images reviewed, shows no acute findings; multiple stable findings including numerous calcified gallstones; large hiatal hernia; bilateral hydronephrosis with bilateral ureteral stents; extensive diverticulosis of sigmoid and left colon -no evidence of diverticulitis, afebrile, no leukocytosis -abdominal pain and nausea resolved after receiving dialysis -patient tolerating oral intake -resolved DVT Prophylaxis: Heparin sq Discharge Planning Pending further clinical improvement. Not yet ready for discharge. Problem Qualifiers (1) Chest pain: Qualified Codes: R07.9 - Chest pain, unspecified Whitney Erickson PA-C Jan 10, 2018 9:54 am
[2018-01-10] MEDS ORDERED: SODIUM CHLOR 0.9% 250 ML INJ 250 ML IV ONE (11:30)
[2018-01-10] MEDS ORDERED: FUROSEMIDE 20 MG/2 ML VIAL IV PUSH ONE (12:00)
[2018-01-10] MEDS: CHOLECALCIFEROL (VIT D3) 1000 UNIT TAB PO SCH (13:06)
[2018-01-10] MEDS: SODIUM BICARBONATE 325 MG TAB PO SCH (13:06)
[2018-01-10] MEDS: FAMOTIDINE 20 MG TAB PO SCH (13:07)
[2018-01-10] MEDS: ASPIRIN EC 81 MG TABEC PO SCH (13:07)
[2018-01-10] MEDS: PRAVASTATIN SOD 40 MG TAB PO SCH (13:07)
[2018-01-10] MEDS: DOXAZOSIN MESYLATE 4 MG TAB PO SCH (13:08)
[2018-01-10] MEDS: DOCUSATE SODIUM 50 MG/SENNA 8.6 MG TAB PO SCH ×2 (13:08→22:16)
[2018-01-10] MEDS: HEPARIN SODIUM - SQ 10,000 UNITS/ML VIAL SQ SCH ×2 (13:08→22:16)
[2018-01-10] MEDS: SODIUM CHLORIDE 0.9% FLUSH 10 ML FLUSH IV FLUSH SCH ×2 (13:09→22:15)
--- NOTE | 2018-01-10 15:47 | HHI.NPPN ---
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 He was seen in the office a few weeks ago and noted to have worsening renal function. His renal function had been declining for several years now. He has a history of obstructive uropathy and was having ureteral stents changed routinely. Prior to his last visit in the office he was referred back to urology despite recent stent exchange to determine whether or not there is evidence of stent malfunction. Unfortunately despite recent replacement of stent there was no improvement in his renal function and it appears that the patient has progressed to end-stage renal disease as discussed with him during an office visit this week. He was to start dialysis as an outpatient electively but now presents to the hospital with complaints of nausea and dry heaves. Increasing fatigue. Patient does have matured AV dialysis fistula in place in preparation for dialysis. He also has a history of anemia renal disease and also has been requiring intermittent iron infusions.. Interval History The patient completed his second dialysis session today. Feels improved clinically. Objective Data Data 01/10/18 01/11/18 19:00 07:00 Output Total 500 ml Balance -500 ml Output Hemodialysis 500 ml Vital Signs Date Time Temp Pulse Resp B/P (MAP) Pulse Ox O2 Delivery O2 Flow Rate FiO2 01/10/18 13:13 109/56 (73) 01/10/18 11:41 97 21 01/10/18 08:46 99.2 96 18 138/62 (87) 97 01/09/18 23:48 97.9 92 18 110/55 (73) 97 01/09/18 21:40 95 21 01/09/18 19:08 98.0 97 17 115/58 (77) 97 -: 01/10/18 0550 01/10/18 0550 Microbiology 01/10/18 Urine Culture, Received Pending Physical Exam General Appearance: No Acute Distress, Comfortable Eyes Eye Exam: Sclera White Pulmonary Resp Exam: Clear Bilaterally, Breath Sounds Equal, No Distress Cardiology CV Exam: Regular, Normal Sinus Rhythm Gastrointestinal/Abdomen GI Exam: Soft, Non-Tender Integumentary Skin Exam: Clear, Warm, Dry Extremeties Extremities Exam: No Edema Neurologic Neuro Exam: Alert, Awake Psychiatric Psych Exam: Appropriate Responses Assessment/Plan Discussed Condition With: Patient Problem List: (1) CKD (chronic kidney disease) stage 5, GFR less than 15 ml/min ICD Codes: N18.5 - Chronic kidney disease, stage 5 Plan: Outpatient dialysis has been arranged for the patient when stable for discharge. The patient has a history of chronic obstructive uropathy with recent stent change. I believe changes on CT most likely chronic and do not represent an acute obstructive process. Despite ongoing urological management and recent stent exchange there was no improvement in the patient's renal indices and his progressive azotemia was felt to be related to intrinsic renal disease and not reversible. He was tentatively scheduled to initiate dialysis this coming Thursday as an outpatient now presents to the emergency room with increasing fatigue, nausea and dry heaves. medications should be adjusted for his end-stage renal disease when indicated. Patient qualifies for full admit status in view of initiation of dialysis for uremic azotemia.. Avoid gadolinium. (2) Anemia of renal disease ICD Codes: D63.1 - Anemia in chronic kidney disease Plan: Unsure of the etiology of the acute decline in his hemoglobin. No clinical evidence of active bleeding. Repeat CBC in a.m. Continue Epogen. (3) Hypertension ICD Codes: I10 - Essential (primary) hypertension Status: Acute (4) Obstructive uropathy ICD Codes: N13.9 - Obstructive and reflux uropathy, unspecified Plan: As indicated above patient has a long-standing history of urological management for curative uropathy with intermittent stent change. Despite urological management patient has progressed to end-stage renal disease secondary to progression of intrinsic renal disease. He did recently have stent exchange in the hope that they would be improvement in his renal function but this has not occurred. Follow-up with urology post discharge. Piyush Jha MD Jan 10, 2018 15:47
[2018-01-10] MEDS ORDERED: COMB0.2S EACH EYE (20:02)
[2018-01-10] MEDS: LATANOPROST 0.005% OPHT SOLN 2.5 ML BTL EACH EYE SCH (22:15)
[2018-01-11 00:07] VITALS: PULSE 84
--- NOTE | 2018-01-11 02:11 | RADRPT ---
EXAM DATE/TIME: 01/11/2018 01:55 [facility] COMPARISON: CHEST SINGLE AP, January 08, 2018, 18:45. INDICATIONS : Shortness of breath MEDICAL HISTORY : Hydronephrosis SURGICAL HISTORY : Stent ENCOUNTER: Subsequent ACUITY: 4 - 6 days PAIN SCORE: 8/10 LOCATION: Bilateral chest FINDINGS: A single view of the chest demonstrates the lungs to be symmetrically aerated without evidence of mas s, infiltrate or effusion. The cardiomediastinal contours are unremarkable. Osseous structures are intact. CONCLUSION: No acute disease. Cuate Benson MD on January 11, 2018 at 2:09 Board Certified Radiologist. This report was verified electronically.
[2018-01-11 02:16] VITALS: O2SAT 97
[2018-01-11 03:44] VITALS: BP 130/65; PULSE 98; RESP 18; TEMP 99; O2SAT 96
[2018-01-11 04:11] VITALS: PULSE 90
[2018-01-11 07:18] VITALS: BP 121/58; PULSE 92; RESP 20; TEMP 99.6; O2SAT 95
[2018-01-11] MEDS: CHOLECALCIFEROL (VIT D3) 1000 UNIT TAB PO SCH (08:12)
[2018-01-11] MEDS: SODIUM BICARBONATE 325 MG TAB PO SCH (08:13)
[2018-01-11] MEDS: ASPIRIN EC 81 MG TABEC PO SCH (08:13)
[2018-01-11] MEDS: DOCUSATE SODIUM 50 MG/SENNA 8.6 MG TAB PO SCH (08:13)
[2018-01-11] MEDS: METOPROLOL TARTRATE 25 MG TAB PO SCH (08:13)
[2018-01-11] MEDS: FAMOTIDINE 20 MG TAB PO SCH (08:14)
[2018-01-11] MEDS: amLODIPine BESYLATE 5 MG TAB PO SCH (08:14)
[2018-01-11] MEDS: VITAMIN B CMPLX/VITC/FOLIC AC CAP PO SCH (08:14)
[2018-01-11] MEDS: PRAVASTATIN SOD 40 MG TAB PO SCH (08:14)
[2018-01-11] MEDS: DOXAZOSIN MESYLATE 4 MG TAB PO SCH (08:15)
[2018-01-11] MEDS: SODIUM CHLORIDE 0.9% FLUSH 10 ML FLUSH IV FLUSH SCH (08:15)
[2018-01-11] MEDS: HEPARIN SODIUM - SQ 10,000 UNITS/ML VIAL SQ SCH (08:15)
--- NOTE | 2018-01-11 09:20 | HHI.PR ---
Subjective Remarks Follow up for SOB, Nausea, Anemia, ESRD on HD. The patient reports just feeling weak and tired this morning. He denies any specific medical complaints including no lightheadedness, chest pain, shortness of breath, abdominal pain, or nausea/vomiting. He states he hasn't been eating much due to lack of appetite and just feeling tired. He lives alone. Objective Vitals Vital Signs Date Time Temp Pulse Resp B/P (MAP) Pulse Ox O2 Delivery O2 Flow Rate FiO2 01/11/18 08:53 Room Air 01/11/18 07:18 99.6 92 20 121/58 (79) 95 01/11/18 04:11 90 01/11/18 03:44 99.0 98 18 130/65 (86) 96 01/11/18 02:16 97 Nasal Cannula 2.00 01/11/18 02:13 97 Nasal Cannula 2.00 01/11/18 00:07 84 01/10/18 23:39 99.1 98 18 134/65 (88) 96 01/10/18 22:20 100 18 97 01/10/18 21:23 99.5 97 20 140/58 98 01/10/18 21:03 99.7 90 18 116/60 (78) 98 01/10/18 20:18 98 21 01/10/18 20:10 99.7 01/10/18 20:10 98 01/10/18 20:03 100.1 96 16 123/58 98 01/10/18 18:48 98.4 101 18 132/60 96 01/10/18 18:27 98.4 98 18 122/56 99 01/10/18 18:22 98.4 99 18 120/58 98 01/10/18 18:16 98.3 101 18 133/60 97 01/10/18 18:04 98.2 104 18 122/56 97 01/10/18 16:56 97.6 99 18 131/61 (84) 96 01/10/18 13:13 109/56 (73) 01/10/18 11:41 97 21 I/O 01/10/18 01/10/18 01/10/18 01/11/18 01/11/18 01/11/18 07:00 15:00 23:00 07:00 15:00 23:00 Intake Total 665 ml Output Total 500 ml Balance -500 ml 665 ml Intake Oral 250 ml Packed Cells 400 ml Blood Product IV Normal Saline Flush 15 ml Output Hemodialysis 500 ml # Voids 1 Result Diagram: 01/10/18 0550 01/10/18 0550 Imaging Last Impressions Chest X-Ray 01/11/18 0000 Signed Impressions: Service Date/Time: Thursday, January 11, 2018 01:55 - CONCLUSION: No acute disease. Cuate Benson MD Abdomen/Pelvis CT 01/09/18 0000 Signed Impressions: Service Date/Time: Tuesday, January 09, 2018 21:06 - CONCLUSION: No acute findings. Multiple stable findings including numerous calcified gallstones, large hiatus hernia, bilateral hydronephrosis with bilateral ureteral stents and extensive diverticulosis of the sigmoid and left colon. Yordy Frey MD Head CT 01/08/18 0000 Signed Impressions: Service Date/Time: Monday, January 08, 2018 18:51 - CONCLUSION: 1. Bilateral cortical atrophy characteristic for patient's age. 2. No acute pathology. Micah Villareal MD Objective Remarks GENERAL: Well-nourished, well-developed pleasant elderly male patient in [facility]. SKIN: Warm and dry. No rash. HEENT: Normocephalic. Atraumatic. Pupils equal and round. Mucous membranes pink and moist. CARDIOVASCULAR: Regular rate and rhythm. S1, S2 noted. No murmur appreciated. RESPIRATORY: No accessory muscle use. Clear to auscultation. Breath sounds equal bilaterally. GASTROINTESTINAL: Abdomen soft, nondistended, nontender. Normoactive bowel sounds x4. MUSCULOSKELETAL: No obvious deformities. Extremities without clubbing, cyanosis , or edema. LUE AV fistula, +thrill/bruit. NEUROLOGICAL: Awake and alert. No obvious cranial nerve deficits. Motor grossly within normal limits. Normal speech. PSYCHIATRIC: Appropriate mood and affect; insight and judgment normal. Medications and IVs Current Medications Medications (Trade) Dose Ordered Sig/Rahel Route Start Time Stop Time Status Last Admin (NS Flush) 2 ml UNSCH PRN IV FLUSH 01/08/18 20:15 (NS Flush) 2 ml BID IV FLUSH 01/08/18 21:00 01/11/18 08:15 (Zofran Inj) 4 mg Q6H PRN IVP 01/08/18 20:15 (Heparin Inj) 5,000 units Q12H SQ 01/09/18 09:00 01/11/18 08:15 (Tylenol) 650 mg Q6H PRN PO 01/08/18 20:15 ([place] 5-325 Mg) 1 tab Q4H PRN PO 01/08/18 20:15 01/08/18 22:31 ([place]asgow 10-325 Mg) 1 tab Q4H PRN PO 01/08/18 20:15 (Elizabeth-Colace) 1 tab BID PO 01/08/18 21:00 01/11/18 08:13 (Milk Of Magnesia Liq) 30 ml Q12H PRN PO 01/08/18 20:15 (Senokot) 17.2 mg Q12H PRN PO 01/08/18 20:15 (Dulcolax Supp) 10 mg DAILY PRN RECTAL 01/08/18 20:15 (Lactulose Liq) 30 ml DAILY PRN PO 01/08/18 20:15 (Norvasc) 5 mg DAILY PO 01/09/18 09:00 01/09/18 09:28 (Ecotrin Ec) 81 mg DAILY PO 01/09/18 09:00 01/11/18 08:13 (Vitamin D3) 2,000 units DAILY PO 01/09/18 09:00 01/11/18 08:12 (Cardura) 8 mg DAILY PO 01/09/18 09:00 01/11/18 08:15 (Xalatan 0.005% Opth Soln) 1 drop HS EACH EYE 01/08/18 21:00 01/10/18 22:15 (Sodium Bicarbonate) 325 mg DAILY PO 01/09/18 09:00 01/11/18 08:13 (Pepcid) 20 mg DAILY PO 01/09/18 09:00 01/11/18 08:14 (Pravachol) 40 mg DAILY PO 01/09/18 09:00 01/11/18 08:14 (Lopressor) 25 mg Q12HR PO 01/09/18 09:00 01/11/18 08:13 (Nitroglycerin 2% Oint) 0.5 inch Q6HR PRN TOPICAL 01/08/18 22:15 (Emla Cream) 1 applic UNSCH PRN TOPICAL 01/09/18 14:15 Sodium Chloride 1,000 ml @ 0 mls/hr Q0M PRN OTHER 01/09/18 14:15 (Heparin Inj) 8,000 units UNSCH PRN IV FLUSH 01/09/18 14:15 Sodium Chloride 1,000 ml @ 200 mls/hr Q5H PRN IV 01/09/18 14:15 Sodium Chloride 1,000 ml @ 0 mls/hr Q0M PRN OTHER 01/09/18 14:15 Albumin Human 100 ml @ 60 mls/hr UNSCH PRN IV 01/09/18 14:15 01/09/18 16:05 (NS Flush) 5 ml UNSCH PRN IV FLUSH 01/09/18 14:15 (Zofran Inj) 4 mg UNSCH PRN IV PUSH 01/09/18 14:15 01/09/18 15:35 (Tylenol) 650 mg UNSCH PRN PO 01/09/18 14:15 (Benadryl) 25 mg UNSCH PRN PO 01/09/18 14:15 (Nitrostat Sl) 0.4 mg UNSCH PRN SL 01/09/18 14:15 (Catapres) 0.1 mg UNSCH PRN PO 01/09/18 14:15 (Epogen Inj) 8,000 units UNSCH PRN IV PUSH 01/09/18 14:15 01/09/18 16:18 (Gelfoam 12 Mm/7 Mm Top) 1 foam UNSCH PRN TOP 01/09/18 14:15 01/09/18 16:28 (Nephrocaps) 1 cap DAILY PO 01/09/18 15:00 01/11/18 08:14 A/P Problem List: (1) Chest pain ICD Code: R07.9 - Chest pain, unspecified Status: Acute (2) ESRD (end stage renal disease) ICD Code: N18.6 - End stage renal disease (3) HTN (hypertension) ICD Code: I10 - Essential (primary) hypertension Assessment and Plan 82-year-old male with a PMH of HTN, Prostate CA, Sleep Apnea, Anemia and ESRD pending HD who presented to the ER w/ complaints of SOB and chest pain. Atypical Chest Pain: no hx of CAD. Possibly fluid overload? Patient planned to start dialysis on Tues 2/14. -ACS ruled out with negative serial cardiac enzymes x3, and EKG without acute ischemic changes -Given, Aspirin, statin, metoprolol, nitro/morphine prn pain -Monitor on telemetry -chest pains resolved following dialysis HTN: Uncontrolled. BP 180's upon arrival -continue patient's Norvasc -also started on metoprolol as above -monitor BP, adjust antihypertensives as needed -much better controlled after dialysis ESRD: first HD to be started on (01/12/18). Has LUE AVF. -follows w/ Dr. Jha as outpatient, consulted -patient received dialysis in hospital on 01/09 and 01/10 -patient's next dialysis scheduled for tomorrow 01/12 -monitor renal function, improving Anemia: Hgb 8.8, baseline around 9. S/p outpatient IV iron transfusion 01/08 -no signs of active bleeding -check hemoccult -Hgb dropped to 6.7 -Given blood transfusion pRBC x1u given with dialysis on 01/10 -nephrology following -Monitor CBC, labs pending today Abdominal Pain: patient reported LLQ abdominal pain and nausea/dry heaves. CT abd/pelvis images reviewed, shows no acute findings; multiple stable findings including numerous calcified gallstones; large hiatal hernia; bilateral hydronephrosis with bilateral ureteral stents; extensive diverticulosis of sigmoid and left colon -no evidence of diverticulitis, afebrile, no leukocytosis -abdominal pain and nausea resolved after receiving dialysis -patient tolerating oral intake -resolved Weakness: patient reports feeling tired and weak today. Suspect secondary to receiving dialysis the past 2 days. -consult PT/OT DVT Prophylaxis: Heparin sq Discharge Planning Pending further clinical improvement and nephrology clearance. Not yet ready for discharge. Problem Qualifiers (1) Chest pain: Qualified Codes: R07.9 - Chest pain, unspecified Whitney Erickson PA-C Jan 11, 2018 9:20 am
--- NOTE | 2018-01-11 11:15 | HHI.NPPN ---
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 He was seen in the office a few weeks ago and noted to have worsening renal function. His renal function had been declining for several years now. He has a history of obstructive uropathy and was having ureteral stents changed routinely. Prior to his last visit in the office he was referred back to urology despite recent stent exchange to determine whether or not there is evidence of stent malfunction. Unfortunately despite recent replacement of stent there was no improvement in his renal function and it appears that the patient has progressed to end-stage renal disease as discussed with him during an office visit this week. He was to start dialysis as an outpatient electively but now presents to the hospital with complaints of nausea and dry heaves. Increasing fatigue. Patient does have matured AV dialysis fistula in place in preparation for dialysis. He also has a history of anemia renal disease and also has been requiring intermittent iron infusions.. Interval History Patient indicated no verbal complaints today. He is awaiting his repeat H&H as well as physical therapy evaluation. Objective Data Data Vital Signs Date Time Temp Pulse Resp B/P (MAP) Pulse Ox O2 Delivery O2 Flow Rate FiO2 01/11/18 08:53 Room Air 01/11/18 07:18 99.6 92 20 121/58 (79) 95 01/11/18 04:11 90 01/11/18 03:44 99.0 98 18 130/65 (86) 96 01/11/18 02:16 97 Nasal Cannula 2.00 01/11/18 02:13 97 Nasal Cannula 2.00 01/11/18 00:07 84 01/10/18 23:39 99.1 98 18 134/65 (88) 96 01/10/18 22:20 100 18 97 01/10/18 21:23 99.5 97 20 140/58 98 01/10/18 21:03 99.7 90 18 116/60 (78) 98 01/10/18 20:18 98 21 01/10/18 20:10 99.7 01/10/18 20:10 98 01/10/18 20:03 100.1 96 16 123/58 98 01/10/18 18:48 98.4 101 18 132/60 96 01/10/18 18:27 98.4 98 18 122/56 99 01/10/18 18:22 98.4 99 18 120/58 98 01/10/18 18:16 98.3 101 18 133/60 97 01/10/18 18:04 98.2 104 18 122/56 97 01/10/18 16:56 97.6 99 18 131/61 (84) 96 01/10/18 13:13 109/56 (73) 01/10/18 11:41 97 21 -: 01/10/18 0550 01/10/18 0550 Physical Exam General Appearance: No Acute Distress, Comfortable Eyes Eye Exam: Sclera White Pulmonary Resp Exam: Clear Bilaterally, Breath Sounds Equal, No Distress Cardiology CV Exam: Regular, Normal Sinus Rhythm Gastrointestinal/Abdomen GI Exam: Soft, Non-Tender Integumentary Skin Exam: Clear, Warm, Dry Extremeties Extremities Exam: No Edema Neurologic Neuro Exam: Alert, Awake Psychiatric Psych Exam: Appropriate Responses Assessment/Plan Discussed Condition With: Patient Problem List: (1) CKD (chronic kidney disease) stage 5, GFR less than 15 ml/min ICD Codes: N18.5 - Chronic kidney disease, stage 5 Plan: Outpatient dialysis has been arranged for the patient when stable for discharge. The patient has a history of chronic obstructive uropathy with recent stent change. I believe changes on CT most likely chronic and do not represent an acute obstructive process. Despite ongoing urological management and recent stent exchange there was no improvement in the patient's renal indices and his progressive azotemia was felt to be related to intrinsic renal disease and not reversible. If the patient's H&H is stable and he is cleared by physical therapy for discharge patient is clear from a renal point of view for discharge also with initiation of outpatient dialysis tomorrow at the dialysis center. Transportation will be arranged as discussed with the patient with a pickup time of 6 AM. If patient is not discharged will continue to follow in house. Discussed with patient. (2) Anemia of renal disease ICD Codes: D63.1 - Anemia in chronic kidney disease Plan: Unsure of the etiology of the acute decline in his hemoglobin. No clinical evidence of active bleeding. Repeat CBC in a.m. Continue Epogen. (3) Hypertension ICD Codes: I10 - Essential (primary) hypertension Status: Acute (4) Obstructive uropathy ICD Codes: N13.9 - Obstructive and reflux uropathy, unspecified Plan: As indicated above patient has a long-standing history of urological management for curative uropathy with intermittent stent change. Despite urological management patient has progressed to end-stage renal disease secondary to progression of intrinsic renal disease. He did recently have stent exchange in the hope that they would be improvement in his renal function but this has not occurred. Follow-up with urology post discharge. Piyush Jha MD Jan 11, 2018 11:15
[2018-01-11 11:29] VITALS: BP 112/54; PULSE 80; RESP 20; TEMP 99.5; O2SAT 96
[2018-01-11 12:21] LABS: AUTOMATED NEUTROPHIL # 5.4 TH/MM3 (1.8-7.7); BASOPHIL % 0.6 % (0.0-2.0); EOSINOPHIL % 0.6 % (0.0-4.0); HEMATOCRIT 21.6 % (39.0-51.0); HEMOGLOBIN 7.5 GM/DL (13.0-17.0); LYMPH % 16.4 % (9.0-44.0); LYMPHOCYTE # 1.2 TH/MM3 (1.0-4.8); MEAN CORPUSCULAR HEMOGLOBIN 31.3 PG (27.0-34.0); MEAN CORPUSCULAR HGB CONC 34.8 % (32.0-36.0); MEAN PLATELET VOLUME 7.5 FL (7.0-11.0); MONO % 8.7 % (0.0-8.0); MONOCYTE # 0.6 TH/MM3 (0-0.9); NEUT % 73.7 % (16.0-70.0); PLATELET COUNT 133 TH/MM3 (150-450); RED CELL DISTRIBUTION WIDTH 16.3 % (11.6-17.2); WHITE BLOOD COUNT 7.3 TH/MM3 (4.0-11.0)
[2018-01-11 12:52] LABS: BICARBONATE 30.1 MEQ/L (21.0-32.0); CALCIUM 8.4 MG/DL (8.5-10.1); CREATININE 4.78 MG/DL (0.60-1.30)
[2018-01-11] MEDS ORDERED: METO25TA3 PO (14:58)
--- NOTE | 2018-01-11 15:15 | HHI.DCPOC ---
Discharge Care Plan Diagnosis: (1) ESRD (end stage renal disease) (2) HTN (hypertension) (3) Anemia of renal disease Goals to Promote Your Health * To prevent worsening of your condition and complications * To maintain your health at the optimal level Directions to Meet Your Goals Take your medications as prescribed Follow your dietary instruction Follow activity as directed Keep your appointments as scheduled Take your immunizations and boosters as scheduled If your symptoms worsen call your PCP, if no PCP go to Urgent Care Center or Emergency Room Smoking is Dangerous to Your Health. Avoid second hand smoke Call the 24-hour hour crisis hotline for domestic abuse at Whitney Erickson PA-C Jan 11, 2018 15:15
[2018-01-11] MEDS ORDERED: WALKER WHEELS/F1 MIS (15:37)
--- NOTE | 2018-01-11 15:40 | HHI.DS ---
cc: Piyush Jha MD Discharge Summary Admission Date Jan 08, 2018 at 8:14 pm Discharge Date: Jan 11, 2018 Admitting Diagnosis chest pain; sob; lue/lle numbness and tingling (1) Chest pain ICD Code: R07.9 - Chest pain, unspecified Status: Acute (2) ESRD (end stage renal disease) ICD Code: N18.6 - End stage renal disease (3) HTN (hypertension) ICD Code: I10 - Essential (primary) hypertension Procedures No procedures. Brief History - From Admission This is an 82-year-old male with a PMH of HTN, Prostate CA, Sleep Apnea, Anemia and ESRD pending HD who presented to the ER w/ complaints of SOB and chest pain. States had iron infusion for anemia today, few hours after infusion developed acute onset of substernal chest pain. Pain is intermittent, sharp, 8/ 10, non-radiating and associated w/ deep breath. Denies fever, chills of cough. States he has first HD scheduled for Thursday, follows w/ Dr. Jha. On arrival, BP 180/74, HR 85, O2 sat 97% on RA, Afebrile. WBC 11.9. Creatinine 5.41, previously 4.99 on 01/07/18. Troponin negative. INR 1.0. CXR with no acute findings. CT Head with bilateral cortical atrophy, no acute findings. CBC/BMP: 01/11/18 1040 01/11/18 1040 Significant Findings Laboratory Tests Test 01/08/18 18:45 01/09/18 01:26 01/09/18 06:20 01/09/18 10:23 White Blood Count 11.9 TH/MM3 (4.0-11.0) Red Blood Count 2.84 MIL/MM3 (4.50-5.90) 2.85 MIL/MM3 (4.50-5.90) Hemoglobin 8.9 GM/DL (13.0-17.0) 8.8 GM/DL (13.0-17.0) Hematocrit 25.7 % (39.0-51.0) 25.6 % (39.0-51.0) Neutrophils (%) (Auto) 79.0 % (16.0-70.0) 85.0 % (16.0-70.0) Neutrophils # (Auto) 9.4 TH/MM3 (1.8-7.7) 9.4 TH/MM3 (1.8-7.7) Activated Partial Thromboplast Time 32.2 SEC (24.3-30.1) Blood Urea Nitrogen 71 MG/DL (7-18) 65 MG/DL (7-18) Creatinine 5.41 MG/DL (0.60-1.30) 5.58 MG/DL (0.60-1.30) Random Glucose 133 MG/DL (74-106) 128 MG/DL (74-106) Estimat Glomerular Filtration Rate 10 ML/MIN (>89) 10 ML/MIN (>89) Troponin I LESS THAN 0.02 NG/ML LESS THAN 0.02 NG/ML LESS THAN 0.02 NG/ML Lymphocytes (%) (Auto) 8.5 % (9.0-44.0) Lymphocytes # (Auto) 0.9 TH/MM3 (1.0-4.8) Albumin 3.0 GM/DL (3.4-5.0) Aspartate Amino Transf (AST/SGOT) 8 U/L (15-37) Alanine Aminotransferase (ALT/SGPT) 8 U/L (12-78) Carbon Dioxide Level 19.6 MEQ/L (21.0-32.0) Cholesterol Level 92 MG/DL (120-200) HDL Cholesterol 38.3 MG/DL (40.0-60.0) Urine Leukocyte Esterase SMALL (NEG) Urine WBC 7 /hpf (0-5) Test 01/09/18 15:20 01/10/18 04:57 01/10/18 05:50 01/11/18 02:00 Urine Turbidity CLOUDY (CLEAR) Urine Protein 100 mg/dL (NEG-TRACE) Urine Occult Blood MOD (NEG) Urine Leukocyte Esterase LARGE (NEG) Urine RBC 22 /hpf (0-3) Urine WBC Clumps MANY (NONE) Urine Bacteria MOD /hpf (NONE) Urine Yeast with Hyphae MANY (NONE) Urine Yeast (Budding) FEW (NONE) Red Blood Count 2.10 MIL/MM3 (4.50-5.90) Hemoglobin 6.7 GM/DL (13.0-17.0) Hematocrit 18.8 % (39.0-51.0) Platelet Count 130 TH/MM3 (150-450) Blood Urea Nitrogen 44 MG/DL (7-18) Creatinine 4.63 MG/DL (0.60-1.30) Random Glucose 140 MG/DL (74-106) Albumin 3.1 GM/DL (3.4-5.0) Calcium Level 8.4 MG/DL (8.5-10.1) Estimat Glomerular Filtration Rate 12 ML/MIN (>89) Blood Gas HCO3 29 mmol/L (22-26) Blood Gas Base Excess 6.3 mmol/L (-2-2) Arterial Blood pH 7.52 (7.380-7.420) Arterial Blood Partial Pressure CO2 36 mmHg (38-42) Arterial Blood Oxygen Content 10.7 Vol % (12.0-20.0) Blood Gas Hemoglobin 8.0 G/DL (12.0-16.0) Test 01/11/18 10:40 Red Blood Count 2.40 MIL/MM3 (4.50-5.90) Hemoglobin 7.5 GM/DL (13.0-17.0) Hematocrit 21.6 % (39.0-51.0) Platelet Count 133 TH/MM3 (150-450) Neutrophils (%) (Auto) 73.7 % (16.0-70.0) Monocytes (%) (Auto) 8.7 % (0.0-8.0) Blood Urea Nitrogen 36 MG/DL (7-18) Creatinine 4.78 MG/DL (0.60-1.30) Random Glucose 112 MG/DL (74-106) Calcium Level 8.4 MG/DL (8.5-10.1) Sodium Level 135 MEQ/L (136-145) Estimat Glomerular Filtration Rate 12 ML/MIN (>89) Imaging Last Impressions Chest X-Ray 01/11/18 0000 Signed Impressions: Service Date/Time: Thursday, January 11, 2018 01:55 - CONCLUSION: No acute disease. Cuate Benson MD Abdomen/Pelvis CT 01/09/18 0000 Signed Impressions: Service Date/Time: Tuesday, January 09, 2018 21:06 - CONCLUSION: No acute findings. Multiple stable findings including numerous calcified gallstones, large hiatus hernia, bilateral hydronephrosis with bilateral ureteral stents and extensive diverticulosis of the sigmoid and left colon. Yordy Frey MD Head CT 01/08/18 0000 Signed Impressions: Service Date/Time: Monday, January 08, 2018 18:51 - CONCLUSION: 1. Bilateral cortical atrophy characteristic for patient's age. 2. No acute pathology. Micah Villareal MD PE at Discharge GENERAL: Well-nourished, well-developed pleasant elderly male patient in NAD. SKIN: Warm and dry. No rash. HEENT: Normocephalic. Atraumatic. Pupils equal and round. Mucous membranes pink and moist. CARDIOVASCULAR: Regular rate and rhythm. S1, S2 noted. No murmur appreciated. RESPIRATORY: No accessory muscle use. Clear to auscultation. Breath sounds equal bilaterally. GASTROINTESTINAL: Abdomen soft, nondistended, nontender. Normoactive bowel sounds x4. MUSCULOSKELETAL: No obvious deformities. Extremities without clubbing, cyanosis , or edema. LUE AV fistula, +thrill/bruit. NEUROLOGICAL: Awake and alert. No obvious cranial nerve deficits. Motor grossly within normal limits. Normal speech. PSYCHIATRIC: Appropriate mood and affect; insight and judgment normal. Hospital Course 82-year-old male with a PMH of HTN, Prostate CA, Sleep Apnea, Anemia and ESRD pending HD who presented to the ER w/ complaints of SOB and chest pain. Atypical Chest Pain: no hx of CAD. Patient presented with chest pain shortly after outpatient IV Iron transfusion. Possibly fluid overload as patient planned to initiate first dialysis on 01/13. ACS ruled out with negative serial cardiac enzymes x3, and EKG without acute ischemic changes. Given, Aspirin, statin, metoprolol, nitro/morphine prn pain. Monitored on telemetry, no acute findings. Patient received dialysis on 01/09 and 01/10. Chest pains resolved following dialysis. HTN: Uncontrolled. BP 180's upon arrival. Continue patient's Norvasc. Also started on metoprolol as above. Monitor BP, much better controlled after dialysis. ESRD: first HD to be started on (01/12/18). Has LUE AVF. Follows w/ Dr. Jha as outpatient, consulted. Patient received dialysis in hospital on 01/09 and 01/10. Patient's next dialysis scheduled for tomorrow 01/12 as outpatient and case management has arranged transportation. Monitored renal function, improving. Anemia: Hgb 8.8, baseline around 9 on iron infusions as outpatient. S/p outpatient IV iron transfusion 01/08. No signs of active bleeding. Hgb dropped to 6.7 on 01/10. Given blood transfusion pRBC x1u given with dialysis on 01/10. Continued on Epogen. Nephrology following. Monitor CBC. Hgb 7.5 on day of discharge. Discussed with [facility] practitioner with Dr. Jha, cleared patient for discharge, they will continue to follow hemoglobin as outpatient. Abdominal Pain: patient reported LLQ abdominal pain and nausea/dry heaves. CT abd/pelvis images reviewed, shows no acute findings; multiple stable findings including numerous calcified gallstones; large hiatal hernia; bilateral hydronephrosis with bilateral ureteral stents; extensive diverticulosis of sigmoid and left colon. No evidence of diverticulitis, afebrile, no leukocytosis. Abdominal pain and nausea resolved after receiving dialysis. Patient tolerating oral intake. Resolved. Weakness: patient reports feeling tired and weak today. Suspect secondary to receiving dialysis the past 2 days. Consult PT, no physical therapy needed at discharge, PT recommended a walker however patient declined. Given prescription for walker at discharge and strongly encouraged to obtain walker. Pt Condition on Discharge: Stable Discharge Disposition: Discharge Home Discharge Time: > 30 minutes Discharge Instructions DIET: Follow Instructions for: Heart Healthy Diet, Dialysis Diet Activities you can perform: Regular-No Restrictions Follow up Referrals: Nephrology - 2-3 Days with Piyush Jha MD PCP Follow-up - 1 Week with Jeff Jarvis MD New Medications: Walker with Front Wheels (Walker with Front Wheels) 1 Mis Mis EA .XX DIRECTED, #1 0 Refills Metoprolol Tartrate (Metoprolol Tartrate) 25 Mg Tab 25 MG PO Q12HR for Blood Pressure Management, #60 TAB Continued Medications: Amlodipine (Norvasc) 5 Mg Tab 5 MG PO DAILY for Blood Pressure Management, #30 TAB [address] (Aspirin EC) 81 Mg Tabdr 81 MG PO DAILY, TAB 0 Refills Brimonidine-Timolol Opth Drops (Combigan Opth Drops) 0.2-0.5% Soln 1 DROP EACH EYE Q12HR for Glaucoma, BOTTLE 0 Refills Cholecalciferol (Vitamin D3) 2,000 Unit Cap 2000 UNITS PO DAILY for Nutritional Supplement, #1 BOTTLE 0 Refills Doxazosin (Cardura) 8 Mg Tab 8 MG PO DAILY, #30 TAB 0 Refills Latanoprost Opth Drops (Xalatan Opth Drops) 0.005% Drops 1 DROP EACH EYE HS for Glaucoma, #2.5 ML 0 Refills Ranitidine (Ranitidine) 150 Mg Tab 150 MG PO DAILY for Heartburn Management, #30 TAB 0 Refills Sodium Bicarbonate (Sodium Bicarbonate) 325 Mg Tab 325 MG PO DAILY, #60 TAB 0 Refills Discontinued Medications: Benazepril (Lotensin) 20 Mg Tab 20 MG PO DAILY for Blood Pressure Management, #30 TAB 0 Refills Whitney Erickson PA-C Jan 11, 2018 15:40 Deonte Hardign MD Jan 12, 2018 06:23
[2018-01-11 15:41] LABS: HEPATITIS A AB IGM NEGATIVE (NEGATIVE); HEPATITIS B CORE AB IGM NEGATIVE (NEGATIVE); HEPATITIS B SURFACE ANTIGEN NEGATIVE (NEGATIVE); HEPATITIS C AB IgG NEGATIVE (NEGATIVE)
[2018-01-12] MEDS ORDERED: WALKER WHEELS/F1 MIS (08:52)
== END 2018-01-11 16:24 | disposition home or self-care (01) ==
LOC: NEPE 17:52 → NEDA 20:14 → NEPHCDU 22:10
PROVIDERS: ADMIT Internal Medicine; ATTEND Internal Medicine
DX: R07.9 Chest pain, unspecified (principal); I12.0 Hypertensive chronic kidney disease with stage 5 chronic kidney disease or end stage renal disease; N18.6 End stage renal disease; Z85.46 Personal history of malignant neoplasm of prostate; Z99.2 Dependence on renal dialysis; D63.1 Anemia in chronic kidney disease; R20.0 Anesthesia of skin; R06.02 Shortness of breath; R53.1 Weakness; Z79.01 Long term (current) use of anticoagulants; M19.90 Unspecified osteoarthritis, unspecified site; K21.9 Gastro-esophageal reflux disease without esophagitis; K44.9 Diaphragmatic hernia without obstruction or gangrene; G47.30 Sleep apnea, unspecified; Z79.899 Other long term (current) drug therapy; R20.2 Paresthesia of skin; N13.9 Obstructive and reflux uropathy, unspecified; R11.0 Nausea; E87.2 Acidosis; B96.89 Other specified bacterial agents as the cause of diseases classified elsewhere; I25.10 Atherosclerotic heart disease of native coronary artery without angina pectoris; N13.30 Unspecified hydronephrosis; R94.31 Abnormal electrocardiogram [ECG] [EKG]
CPT/HCPCS: 36430; 36600; 70450; 71045; 74176; 80048; 80053; 80061; 80069; 80074; 81001; 82550; 82805; 83690; 83735; 84484; 85025; 85027; 85610; 85730; 86850; 86900; 86901; 86920; 87086; 93005; 96361; 96372; 96374; 96375; 97161; 97166; 99285; G0257; G0378; G8987; G8988; G8989; J1644; J1940; J2405; J7050; P9016; Q4081; Q9963; 90935; P9047

== ENCOUNTER → 2018-01-25 | Outpatient (CLI) | payer MEDICARE, OTHER ==
[~2018-01-25] MED LIST changes: +COMB0.2S EACH EYE; -LACTCAP8 PO; -LOTE20TA PO; +METO25TA3 PO; -VENO20IN IV; +WALKER WHEELS/F1 MIS
[2018-01-25 10:21] LABS: BACTERIA, URINE MANY /hpf; BILIRUBIN, URINE NEG (NEG); BLOOD, URINE MOD (NEG); GLUCOSE,URINE NEG (NEG); KETONE, URINE NEG (NEG); NITRITE,URINE NEG (NEG); SQUAMOUS EPITHELIAL CELL URINE 2 /hpf (0-5); URINE COLOR YELLOW (YELLW/STRAW); URINE LEUKOCYTE ESTERASE LARGE (NEG); WHITE BLOOD CELL CLUMPS FEW
== END ==
LOC: PLAB 07:21
PROVIDERS: ATTEND Internal Medicine Nephrology
DX: N39.0 Urinary tract infection, site not specified (principal)
CPT/HCPCS: 81001; 87086

== ENCOUNTER 2018-02-26 10:54 | Emergency (ER) | payer MEDICARE, OTHER ==
[~2018-02-26] VITALS: Ht 177.8 cm; Wt 78.0 kg
[2018-02-26 11:39] VITALS: BP 118/55; PULSE 88; RESP 16; TEMP 99.4; O2SAT 99
--- NOTE | 2018-02-26 14:29 | PD ---
HPI Chief Complaint: GI Complaint Time Seen by Provider: 14:14 Travel History International Travel<30 days: No Contact w/Intl Traveler<30days: No Traveled to known affect area: No History of Present Illness HPI This patient complains of generalized weakness. Duration 3 days. Severity is moderate. He has got runny nose and congestion. He denies fever or chest pain. No syncope. He is dialyzing and went to dialysis yesterday. No alleviating factors. No exacerbating factors. PFSH Past Medical History Hx Anticoagulant Therapy: Yes Arthritis: Yes Heart Rhythm Problems: No Cancer: Yes (prostate) Cardiovascular Problems: Yes High Cholesterol: No Chest Pain: Yes Congestive Heart Failure: No Diabetes: No Diminished Hearing: No Endocrine: No Gastrointestinal Disorders: Yes GERD: Yes Glaucoma: No Genitourinary: Yes Hepatitis: No Hiatal Hernia: Yes Heparin Induced Thrombocytopen: No Hypertension: Yes Immune Disorder: No Inguinal Hernia: Yes (REPAIRED IN 2001.) Implanted Vascular Access Dvce: Yes Musculoskeletal: Yes Neurologic: No Psychiatric: No Reproductive: No Respiratory: Yes (sleep apnea) Renal Failure: Yes (RENAL INSUFF.) Sleep Apnea: Yes (CPAP) Thyroid Disease: No PNEUMOCCOCAL Vaccine (Year): 1 Past Surgical History Abdominal Surgery: Yes (HERNIA REPAIR) Arteriovenous Shunt: Yes (AV fistula left upper arm) Body Medical Devices: artificial sphincter, stents in kidneys Coronary Artery Bypass Graft: No Eye Surgery: Yes (cataracts removed) Genitourinary Surgery: Yes (prostatectomy,urniary stent placed several times) Oral Surgery: Yes (uvulectomy) Prostatectomy: Yes (2000) Tonsillectomy: Yes Other Surgery: Yes (shunt lue 10/09/16) Social History Alcohol Use: No Tobacco Use: No (quit long time ago ) Substance Use: No Allergies-Medications (Allergen,Severity, Reaction): Coded Allergies: Sulfa (Sulfonamide Antibiotics) (Verified Allergy, Severe, Nausea/Vomiting , 02/26/18) *MDRO Multi-Drug Resistant Organism (Verified Adverse Reaction, Unknown, ) 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; (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, 07/01/17 MRSA PCR Screen POSITIVE - 01/23/2017 Reported Meds & Prescriptions Reported Meds & Active Scripts Active Walker with Front Wheels (Device) 1 Mis Mis Ea .XX DIRECTED Reported Benazepril (Benazepril HCl) 20 Mg Tab 20 Mg PO DAILY Sodium Bicarbonate 325 Mg Tab 325 Mg PO DAILY Xalatan Opth Drops (Latanoprost) 0.005% Drops 1 Drop EACH EYE HS Norvasc (Amlodipine Besylate) 5 Mg Tab 5 Mg PO DAILY Review of Systems General / Constitutional: No: Fever Eyes: No: Visual changes HENT: Positive: Rhinorrhea, Congestion, No: Headaches Cardiovascular: No: Chest Pain or Discomfort Respiratory: Positive: Cough, No: Shortness of Breath Gastrointestinal: No: Abdominal Pain Genitourinary: No: Dysuria Musculoskeletal: Positive: Weakness, No: Pain Skin: No Rash Neurologic: Positive: Weakness Psychiatric: No: Depression Endocrine: No: Polydipsia Hematologic/Lymphatic: No: Easy Bruising Physical Exam Narrative GENERAL: Well-nourished, well-developed patient in no apparent distress. SKIN: Focused skin assessment reveals no rash and nodules. Skin is Warm and dry. HEAD: Atraumatic. Normocephalic. EYES: Pupils equal and round. No scleral icterus. No injection or drainage. ENT: No nasal bleeding or discharge. Mucous membranes pink and moist. NECK: Trachea midline. No JVD. CARDIOVASCULAR: Regular rate and rhythm. No murmur appreciated. RESPIRATORY: No accessory muscle use. Clear to auscultation. Breath sounds equal bilaterally. GASTROINTESTINAL: Abdomen soft, non-tender, nondistended. Hepatic and splenic margins not palpable. MUSCULOSKELETAL: No obvious deformities. No clubbing. No cyanosis. No edema. NEUROLOGICAL: Awake and alert. No obvious cranial nerve deficits. Motor grossly within normal limits. Normal speech. PSYCHIATRIC: Appropriate mood and affect; insight and judgment normal. Data Data Last Documented VS Vital Signs Date Time Temp Pulse Resp B/P (MAP) Pulse Ox O2 Delivery O2 Flow Rate FiO2 02/26/18 16:26 88 17 111/59 (76) 95 02/26/18 15:03 Room Air 02/26/18 11:39 99.4 Orders Orders Influenzae A/B Antigen (02/26/18 14:22) Complete Blood Count With Diff (02/26/18 14:22) Basic Metabolic Panel (Bmp) (02/26/18 14:22) Iv Access Insert/Monitor (02/26/18 14:22) Labs Laboratory Tests Test 02/26/18 14:35 White Blood Count 9.4 TH/MM3 Red Blood Count 3.23 MIL/MM3 Hemoglobin 10.3 GM/DL Hematocrit 30.4 % Mean Corpuscular Volume 94.0 FL Mean Corpuscular Hemoglobin 31.9 PG Mean Corpuscular Hemoglobin Concent 33.9 % Red Cell Distribution Width 20.0 % Platelet Count 226 TH/MM3 Mean Platelet Volume 7.7 FL Neutrophils (%) (Auto) 60.1 % Lymphocytes (%) (Auto) 29.1 % Monocytes (%) (Auto) 7.8 % Eosinophils (%) (Auto) 1.9 % Basophils (%) (Auto) 1.1 % Neutrophils # (Auto) 5.7 TH/MM3 Lymphocytes # (Auto) 2.7 TH/MM3 Monocytes # (Auto) 0.7 TH/MM3 Eosinophils # (Auto) 0.2 TH/MM3 Basophils # (Auto) 0.1 TH/MM3 CBC Comment DIFF FINAL Differential Comment Blood Urea Nitrogen 35 MG/DL Creatinine 4.00 MG/DL Random Glucose 101 MG/DL Calcium Level 8.7 MG/DL Sodium Level 134 MEQ/L Potassium Level 4.3 MEQ/L Chloride Level 101 MEQ/L Carbon Dioxide Level 26.0 MEQ/L Anion Gap 7 MEQ/L Estimat Glomerular Filtration Rate 14 ML/MIN MDM Medical Decision Making Medical Screen Exam Complete: Yes Emergency Medical Condition: Yes Medical Record Reviewed: Yes Differential Diagnosis Flu syndrome, dehydration, electrolyte abnormality Narrative Course I have reviewed the patient's electronic medical record. CBC and metabolic profiles are reviewed. Creatinine is 4 as expected for end-stage renal disease Flu swab is negative Stable for outpatient follow-up He has an acute viral respiratory illness and some general malaise Diagnosis Primary Impression: Acute viral bronchitis Additional Impression: Malaise Additional Instructions: The patient was advised to follow up with their physician and return if they worsen. Med/Other Pt SpecificInfo: Other Disposition: 01 DISCHARGE HOME Condition: Stable Urban Bernal MD Feb 26, 2018 14:29
[2018-02-26] MEDS ORDERED: BENA20TA PO (14:42)
[2018-02-26 14:51] LABS: AUTOMATED NEUTROPHIL # 5.7 TH/MM3 (1.8-7.7); BASOPHIL # 0.1 TH/MM3 (0-0.2); BASOPHIL % 1.1 % (0.0-2.0); EOSINOPHIL # 0.2 TH/MM3 (0-0.4); EOSINOPHIL % 1.9 % (0.0-4.0); HEMATOCRIT 30.4 % (39.0-51.0); HEMOGLOBIN 10.3 GM/DL (13.0-17.0); LYMPH % 29.1 % (9.0-44.0); LYMPHOCYTE # 2.7 TH/MM3 (1.0-4.8); MEAN CORPUSCULAR HEMOGLOBIN 31.9 PG (27.0-34.0); MEAN CORPUSCULAR HGB CONC 33.9 % (32.0-36.0); MEAN PLATELET VOLUME 7.7 FL (7.0-11.0); MONO % 7.8 % (0.0-8.0); MONOCYTE # 0.7 TH/MM3 (0-0.9); NEUT % 60.1 % (16.0-70.0); PLATELET COUNT 226 TH/MM3 (150-450); RED BLOOD COUNT 3.23 MIL/MM3 (4.50-5.90); WHITE BLOOD COUNT 9.4 TH/MM3 (4.0-11.0)
[2018-02-26 15:03] VITALS: BP 119/61; PULSE 90; RESP 18; O2SAT 96
[2018-02-26 15:03] LABS: CALCIUM 8.7 MG/DL (8.5-10.1)
[2018-02-26 16:26] VITALS: BP 111/59; PULSE 88; RESP 17; O2SAT 95
== END 2018-02-26 16:54 | disposition home or self-care (01) ==
LOC: PHED 10:54
DX: J20.8 Acute bronchitis due to other specified organisms (principal); M19.90 Unspecified osteoarthritis, unspecified site; K21.9 Gastro-esophageal reflux disease without esophagitis; I12.9 Hypertensive chronic kidney disease with stage 1 through stage 4 chronic kidney disease, or unspecified chronic kidney disease; N18.9 Chronic kidney disease, unspecified; G47.30 Sleep apnea, unspecified; Z79.899 Other long term (current) drug therapy; Z99.2 Dependence on renal dialysis; Z88.2 Allergy status to sulfonamides
CPT/HCPCS: 80048; 85025; 87804; 99283

== ENCOUNTER 2018-03-06 17:25 | Emergency (ER) | payer MEDICARE, OTHER ==
[~2018-03-06] VITALS: Ht 177.8 cm; Wt 80.0 kg
[~2018-03-06 17:25] MED LIST changes: -ASPI81TA23 PO; +BENA20TA PO; -CARD8TAB2 PO; -COMB0.2S EACH EYE; -METO25TA3 PO; -RANI150T PO; -VITA2000 PO
[2018-03-06 17:30] VITALS: BP 117/69; PULSE 90; RESP 28; TEMP 99.7; O2SAT 99
[2018-03-06 19:02] VITALS: BP 137/63; PULSE 93; RESP 19; O2SAT 97
[2018-03-06] MEDS ORDERED: SODIUM CHLORIDE 0.9% FLUSH 10 ML FLUSH IVF PRN (19:30)
[2018-03-06 19:51] LABS: AUTOMATED NEUTROPHIL # 5.6 TH/MM3 (1.8-7.7); BASOPHIL # 0.1 TH/MM3 (0-0.2); BASOPHIL % 0.8 % (0.0-2.0); EOSINOPHIL # 0.2 TH/MM3 (0-0.4); EOSINOPHIL % 2.5 % (0.0-4.0); HEMATOCRIT 28.9 % (39.0-51.0); HEMOGLOBIN 9.9 GM/DL (13.0-17.0); LYMPH % 15.8 % (9.0-44.0); LYMPHOCYTE # 1.2 TH/MM3 (1.0-4.8); MEAN CELL VOLUME 94.6 FL (80.0-100.0); MEAN CORPUSCULAR HEMOGLOBIN 32.4 PG (27.0-34.0); MEAN CORPUSCULAR HGB CONC 34.3 % (32.0-36.0); MEAN PLATELET VOLUME 7.4 FL (7.0-11.0); MONO % 9.2 % (0.0-8.0); MONOCYTE # 0.7 TH/MM3 (0-0.9); NEUT % 71.7 % (16.0-70.0); PLATELET COUNT 189 TH/MM3 (150-450); RED BLOOD COUNT 3.05 MIL/MM3 (4.50-5.90); RED CELL DISTRIBUTION WIDTH 20.4 % (11.6-17.2); WHITE BLOOD COUNT 7.8 TH/MM3 (4.0-11.0)
[2018-03-06 20:03] LABS: INTERNATIONAL NORMALIZED RATIO 1.1 RATIO; PROTHROMBIN TIME - PATIENT 10.7 SEC (9.8-11.6)
[2018-03-06 20:13] LABS: ALBUMIN 3.4 GM/DL (3.4-5.0); ALT (GPT) 18 U/L (12-78); AST (GOT) 20 U/L (15-37); CALCIUM 8.8 MG/DL (8.5-10.1); CHLORIDE 101 MEQ/L (98-107); CREATININE 2.62 MG/DL (0.60-1.30); GLOMERULAR FILTRATION RATE 23 ML/MIN (>89); GLUCOSE,RANDOM 114 MG/DL (74-106); SODIUM (NA) 135 MEQ/L (136-145)
[2018-03-06 20:19] LABS: ALKALINE PHOSPHATASE 76 U/L (45-117); BLOOD UREA NITROGEN 23 MG/DL (7-18); TOTAL BILIRUBIN ADULT 0.8 MG/DL (0.2-1.0); TOTAL PROTEIN 7.5 GM/DL (6.4-8.2); TROPONIN I LESS THAN 0.02 NG/ML (0.02-0.05)
--- NOTE | 2018-03-06 20:28 | RADRPT ---
EXAM DATE/TIME: 03/06/2018 19:45 [facility] COMPARISON: CHEST SINGLE AP, August 27, 2016, 7:29. CHEST SINGLE AP, January 11, 2018, 1:55. INDICATIONS : Shortness of breath and cough. MEDICAL HISTORY : Hypertension. SURGICAL HISTORY : None. ENCOUNTER: Initial ACUITY: 3 weeks PAIN SCORE: 0/10 LOCATION: Bilateral chest FINDINGS: The heart size is normal. There are increased reticulonodular density seen in the lower lungs bilater ally. These findings appear unchanged from the prior exams. 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 Héctor Lyons MD on March 06, 2018 at 20:24 Board Certified Radiologist. This report was verified electronically.
--- NOTE | 2018-03-06 21:24 | PD ---
HPI Chief Complaint: Respiratory Symptoms Time Seen by Provider: 19:09 Travel History International Travel<30 days: No Contact w/Intl Traveler<30days: No Traveled to known affect area: No History of Present Illness HPI Patient is an 82-year-old male who comes in complaining of cough for 3 weeks. He says he went to see his doctor and was prescribed antibiotic, which she has taken for 3 days without improvement. He says he has also had nasal congestion. He says he has felt warm, but has not taken his temperature. He is on dialysis, and says he was dialyzed today. He denies any pain. Denies any chest pain, nausea, vomiting, abdominal pain. He says he only feels short of breath when he is coughing. He says the coughing gets worse at night. He is tried taking NyQuil without relief. Symptoms are mild to moderate. PFSH Past Medical History Hx Anticoagulant Therapy: Yes Arthritis: Yes Heart Rhythm Problems: No Cancer: Yes (prostate) Cardiovascular Problems: Yes High Cholesterol: No Chest Pain: Yes Congestive Heart Failure: No Diabetes: No Dialysis: Yes Diminished Hearing: No Endocrine: No Gastrointestinal Disorders: Yes GERD: Yes Glaucoma: No Genitourinary: Yes Hepatitis: No Hiatal Hernia: Yes Heparin Induced Thrombocytopen: No Hypertension: Yes Immune Disorder: No Inguinal Hernia: Yes (REPAIRED IN 2001.) Implanted Vascular Access Dvce: Yes Musculoskeletal: Yes Neurologic: No Psychiatric: No Reproductive: No Respiratory: Yes (sleep apnea) Immunizations Current: Yes Renal Failure: Yes (RENAL INSUFF.) Sleep Apnea: Yes (CPAP) Thyroid Disease: No PNEUMOCCOCAL Vaccine (Year): 1 Past Surgical History Abdominal Surgery: Yes (HERNIA REPAIR) Arteriovenous Shunt: Yes (AV fistula left upper arm) Body Medical Devices: artificial sphincter, stents in kidneys Coronary Artery Bypass Graft: No Eye Surgery: Yes (cataracts removed) Genitourinary Surgery: Yes (prostatectomy,urniary stent placed several times, TURP) Oral Surgery: Yes (uvulectomy) Prostatectomy: Yes (2000) Tonsillectomy: Yes Other Surgery: Yes (shunt lue 10/09/16) Social History Alcohol Use: No Tobacco Use: No (quit long time ago ) Substance Use: No Allergies-Medications (Allergen,Severity, Reaction): Coded Allergies: Sulfa (Sulfonamide Antibiotics) (Verified Allergy, Severe, Nausea/Vomiting , 3/30/18) *MDRO Multi-Drug Resistant Organism (Verified Adverse Reaction, Unknown, ) 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; (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, 07/01/17 MRSA PCR Screen POSITIVE - 01/23/2017 Reported Meds & Prescriptions Reported Meds & Active Scripts Active Walker with Front Wheels (Device) 1 Mis Mis Ea .XX DIRECTED Reported Benazepril (Benazepril HCl) 20 Mg Tab 20 Mg PO DAILY Sodium Bicarbonate 325 Mg Tab 325 Mg PO DAILY Xalatan Opth Drops (Latanoprost) 0.005% Drops 1 Drop EACH EYE HS Norvasc (Amlodipine Besylate) 5 Mg Tab 5 Mg PO DAILY Review of Systems Except as stated in HPI: all other systems reviewed are Neg General / Constitutional: No: Fever, Chills HENT: Positive: Congestion, No: Headaches, Lightheadedness Cardiovascular: No: Chest Pain or Discomfort, Edema Respiratory: Positive: Cough Gastrointestinal: No: Nausea, Vomiting, Abdominal Pain Musculoskeletal: No: Myalgias, Edema Skin: No Rash, No Change in Pigmentation Physical Exam Narrative GENERAL: Awake and alert, in no acute distress. SKIN: Focused skin assessment warm/dry. No wounds or signs of infection. HEAD: Atraumatic. Normocephalic. EYES: Pupils equal and round. No scleral icterus. ENT: Mucous membranes pink and moist. NECK: Trachea midline. No JVD. CARDIOVASCULAR: Regular rate and rhythm. No murmur appreciated. RESPIRATORY: No accessory muscle use. Crackles in the LLL. Breath sounds equal bilaterally. GASTROINTESTINAL: Abdomen soft, non-tender, nondistended. MUSCULOSKELETAL: No obvious deformities. No clubbing. No cyanosis. No edema. NEUROLOGICAL: Awake and alert. No obvious cranial nerve deficits. Motor grossly within normal limits. Normal speech. PSYCHIATRIC: Appropriate mood and affect; insight and judgment normal. Data Data Last Documented VS Vital Signs Date Time Temp Pulse Resp B/P (MAP) Pulse Ox O2 Delivery O2 Flow Rate FiO2 03/06/18 22:26 93 16 141/74 (96) 98 Room Air 03/06/18 17:30 99.7 Orders Orders Complete Blood Count With Diff (03/06/18 19:17) Comprehensive Metabolic Panel (03/06/18 19:17) Act Partial Throm Time (Ptt) (03/06/18 19:17) Prothrombin Time / Inr (Pt) (03/06/18 19:17) Troponin I (03/06/18 19:17) Iv Access Insert/Monitor (03/06/18 19:17) Electrocardiogram (03/06/18 19:17) Ecg Monitoring (03/06/18 19:17) Oximetry (03/06/18 19:17) Oxygen Administration (03/06/18 19:17) Chest, Pa & Lat (03/06/18 19:17) Sodium Chloride 0.9% Flush (Ns Flush) (03/06/18 19:30) Ct Thorax/ Chest Wo Iv Contras (03/06/18 ) Prednisone (Deltasone) (03/06/18 23:45) Albuterol Neb (Albuterol Neb) (03/06/18 23:45) Urinalysis - C+S If Indicated (03/06/18 23:52) Urine Culture (03/06/18 23:50) Labs Laboratory Tests Test 03/06/18 19:35 03/06/18 23:50 White Blood Count 7.8 TH/MM3 Red Blood Count 3.05 MIL/MM3 Hemoglobin 9.9 GM/DL Hematocrit 28.9 % Mean Corpuscular Volume 94.6 FL Mean Corpuscular Hemoglobin 32.4 PG Mean Corpuscular Hemoglobin Concent 34.3 % Red Cell Distribution Width 20.4 % Platelet Count 189 TH/MM3 Mean Platelet Volume 7.4 FL Neutrophils (%) (Auto) 71.7 % Lymphocytes (%) (Auto) 15.8 % Monocytes (%) (Auto) 9.2 % Eosinophils (%) (Auto) 2.5 % Basophils (%) (Auto) 0.8 % Neutrophils # (Auto) 5.6 TH/MM3 Lymphocytes # (Auto) 1.2 TH/MM3 Monocytes # (Auto) 0.7 TH/MM3 Eosinophils # (Auto) 0.2 TH/MM3 Basophils # (Auto) 0.1 TH/MM3 CBC Comment DIFF FINAL Differential Comment Prothrombin Time 10.7 SEC Prothromb Time International Ratio 1.1 RATIO Activated Partial Thromboplast Time 27.3 SEC Blood Urea Nitrogen 23 MG/DL Creatinine 2.62 MG/DL Random Glucose 114 MG/DL Total Protein 7.5 GM/DL Albumin 3.4 GM/DL Calcium Level 8.8 MG/DL Alkaline Phosphatase 76 U/L Aspartate Amino Transf (AST/SGOT) 20 U/L Alanine Aminotransferase (ALT/SGPT) 18 U/L Total Bilirubin 0.8 MG/DL Sodium Level 135 MEQ/L Potassium Level 4.3 MEQ/L Chloride Level 101 MEQ/L Carbon Dioxide Level 26.0 MEQ/L Anion Gap 8 MEQ/L Estimat Glomerular Filtration Rate 23 ML/MIN Troponin I LESS THAN 0.02 NG/ML Urine Color YELLOW Urine Turbidity CLOUDY Urine pH 7.0 Urine Specific [place] 1.019 Urine Protein 300 mg/dL Urine Glucose (UA) NEG mg/dL Urine Ketones NEG mg/dL Urine Occult Blood MOD Urine Nitrite NEG Urine Bilirubin NEG Urine Urobilinogen LESS THAN 2.0 MG/DL Urine Leukocyte Esterase LARGE Urine RBC /hpf Urine WBC /hpf Urine Squamous Epithelial Cells 4 /hpf Urine Amorphous Sediment OCC Urine Bacteria MANY /hpf Urine Yeast with Hyphae MANY Microscopic Urinalysis Comment CULTURE INDICATED MDM Medical Decision Making Medical Screen Exam Complete: Yes Emergency Medical Condition: Yes Medical Record Reviewed: Yes Interpretation(s) ECG shows NSR at 95. No ST elevation or depression Differential Diagnosis pneumonia vs bronchitis vs pulmonary edema Narrative Course Patient is a 82 year old male who comes in complaining of cough for 3 weeks. Exam shows crackles in the LLL. IV established, labs sent. Labs show no acute abnormalities. CXR shows chronic changes. CT chest shows same chronic changes. Last 24 hours Impressions Chest X-Ray 03/06/18 191 Signed Impressions: Service Date/Time: Tuesday, March 06, 2018 19:45 - CONCLUSION: Chronic interstitial disease at the bases. Héctor Lyons MD Chest CT 03/06/18 0000 Signed Impressions: Service Date/Time: Tuesday, March 06, 2018 22:43 - CONCLUSION: 1. Chronic interstitial disease as described above. 2. Coronary artery pulsations. 3. Gallstones. 4. Evidence of granulomatous disease. 5. Mild hiatal hernia. Héctor Lyons MD Patient is on Doxycycline. Urinalysis is dirty. Keflex added. Given prednisone and albuterol. Advised to follow up with his doctors. Advised to return to the ED as needed for any worsening symptoms. Diagnosis Primary Impression: UTI (urinary tract infection) Qualified Codes: N30.00 - Acute cystitis without hematuria Additional Impression: Acute bronchitis Qualified Codes: J20.9 - Acute bronchitis, unspecified Patient Instructions: Acute Bronchitis (ED), General Instructions, Urinary Tract Infection in Men (ED) Additional Instructions: Continue your doxycycline and add Keflex. Start the Prednisone tomorrow. Follow up with your doctor. Return to the ED as needed for any worsening symptoms. Scripts Albuterol 18 GM Inh (Ventolin Hfa 18 GM Inh) 90 Mcg/Act Aer 2 PUFF INH Q4-6H Y for SHORTNESS OF BREATH, #1 INHALER 0 Refills Prov: Faith Levine MD 03/07/18 Prednisone (Prednisone) 50 Mg Tab 50 MG PO DAILY for 3 Days, #3 TAB 0 Refills Prov: Faith Levine MD 03/07/18 Cephalexin (Keflex) 500 Mg Capsule 500 MG PO Q6H for Infection for 10 Days, #40 CAP 0 Refills Prov: Faith Levine MD 03/07/18 Disposition: 01 DISCHARGE HOME Condition: Stable Faith Levine MD Mar 06, 2018 21:24
[2018-03-06 22:26] VITALS: BP 141/74; PULSE 93; RESP 16; O2SAT 98
--- NOTE | 2018-03-06 23:10 | RADRPT ---
EXAM DATE/TIME: 03/06/2018 22:43 [facility] COMPARISON: CT ABDOMEN & PELVIS W/O CONTRAST, May 13, 2016, 13:16. CHEST SINGLE AP, January 08, 2018, 18:45. CHEST SINGLE AP, January 11, 2018, 1:55. CHEST PA & LAT, March 06, 2018, 19:45. INDICATIONS : Short of breath. RADIATION DOSE: 10.54 CTDIvol (mGy) MEDICAL HISTORY : Cardiovascular disease. Hypertension. Hernia, hiatal. SURGICAL HISTORY : Prostatectomy. ENCOUNTER: Initial ACUITY: 1 day PAIN SCALE: 0/10 LOCATION: Bilateral chest TECHNIQUE: Volumetric scanning of the chest was performed. Using automated exposure control and adjustment of t he mA and/or kV according to patient size, radiation dose was kept as low as reasonably achievable to obtain optimal diagnostic quality images. DICOM format image data is available electronically for r eview and comparison. Follow-up recommendations for detected pulmonary nodules are based at a minimum on nodule size and pa tient risk factors according to Fleischner Society Guidelines. FINDINGS: LUNGS: There is reticulonodular interstitial disease seen at the posterior aspect of the superior segment of the right lower lobe and at the posterior aspects of the lower lobes bilaterally. There is also mild er interstitial changes at the right middle lobe and left lingula. The interstitial disease present o n multiple prior chest x-rays and is chronic. PLEURAE: There is no pleural thickening or pleural effusion. MEDIASTINUM: Coronary artery calcifications are present. There is a calcified precarinal lymph node present. There are small lymph nodes seen in the mediastinum. Pathologically enlarged adenopathy is not identified. AXILLAE: Within normal limits. No lymphadenopathy. MUSCULOSKELETAL: Within normal limits for patient age. MISCELLANEOUS: The visualized upper abdominal organs demonstrate no acute abnormality. Calcifications are seen in th e liver and spleen. There is a mild hiatal hernia present. Multiple gallstones are seen. There appear s to be atrophy of the kidneys. This was present previously. Colonic diverticula are seen. CONCLUSION: 1. Chronic interstitial disease as described above. 2. Coronary artery pulsations. 3. Gallstones. 4. Evidence of granulomatous disease. 5. Mild hiatal hernia. Héctor Lyons MD on March 06, 2018 at 23:03 Board Certified Radiologist. This report was verified electronically.
[2018-03-06] MEDS ORDERED: RESP: ALBUTEROL 2.5 MG/3 ML NEB (SCH) NEB ONE (23:45)
[2018-03-06] MEDS ORDERED: predniSONE 50 MG TAB PO ONE (23:45)
[2018-03-07 00:52] LABS: AMORPHOUS SEDIMENT, URINE OCC; BACTERIA, URINE MANY /hpf; BILIRUBIN, URINE NEG (NEG); BLOOD, URINE MOD (NEG); GLUCOSE,URINE NEG (NEG); KETONE, URINE NEG (NEG); NITRITE,URINE NEG (NEG); SQUAMOUS EPITHELIAL CELL URINE 4 /hpf (0-5); URINE COLOR YELLOW (YELLW/STRAW); URINE LEUKOCYTE ESTERASE LARGE (NEG)
[2018-03-07] MEDS ORDERED: CEPH-460 PO (01:03)
[2018-03-07] MEDS ORDERED: VENTAER INH (01:03)
[2018-03-07] MEDS ORDERED: PRED50 PO (01:03)
--- NOTE | 2018-03-07 18:59 | EKG ---
Date Performed: 03/06/2018 Time Performed: 21:13:41 PTAGE: 82 years EKG: Sinus rhythm WITH OCCASIONAL VENTRICULAR PREMATURE COMPLEXES NONSPECIFIC ST & T-WAVE ABNORMALITY Compared to prev ious tracing, the ST-T wave changes are slightly more prominent and the PVC is new. BORDERLINE ECG PREVIOUS TRACING : 01/08/18 @ 1901 DOCTOR: Andres Mendoza Interpretating Date/Time 03/07/2018 18:57:21
== END 2018-03-07 01:23 | disposition home or self-care (01) ==
LOC: NEPC 17:25
DX: N30.00 Acute cystitis without hematuria (principal); B37.41 Candidal cystitis and urethritis; B95.7 Other staphylococcus as the cause of diseases classified elsewhere; J20.9 Acute bronchitis, unspecified; R94.31 Abnormal electrocardiogram [ECG] [EKG]; I12.0 Hypertensive chronic kidney disease with stage 5 chronic kidney disease or end stage renal disease; N18.6 End stage renal disease; Z99.2 Dependence on renal dialysis; Z87.891 Personal history of nicotine dependence
CPT/HCPCS: 71046; 71250; 80053; 81001; 84484; 85025; 85610; 85730; 87086; 93005; 94664; 99285; J7512; J7613

== ENCOUNTER 2018-05-03 02:22 | Emergency (ER) | payer MEDICARE, OTHER ==
[~2018-05-03] VITALS: Ht 177.8 cm; Wt 80.0 kg
[~2018-05-03 02:22] MED LIST changes: +CEPH-460 PO; +PRED50 PO; +VENTAER INH
[2018-05-03 02:29] VITALS: BP 154/69; PULSE 84; RESP 18; TEMP 98.2; O2SAT 98
--- NOTE | 2018-05-03 03:01 | PD ---
HPI Chief Complaint: Complaint Time Seen by Provider: 02:32 Travel History International Travel<30 days: No Contact w/Intl Traveler<30days: No Traveled to known affect area: No History of Present Illness HPI The patient is an 82 year old male who presents to the [facility] emergency department with a history of difficulty urinating that began a week ago. The patient reports a recent history of having a urinary tract infection that required bilateral ureteral stents to be removed 3 weeks ago by his urologist, Dr. Marie. He reports that he completed a course of antibiotic approximately a week ago. He reports that he had a follow-up appointment scheduled with Dr. Marie for this past , however had to be rescheduled. The patient reports that over the last week his stream is gotten smaller and smaller. He reports that he has an artificial sphincter in place which has completely opened up today and continues to have very little urine output even with pushing. He reports that he feels pressure. He reports having dysuria when he does urinate. He reports having urinary urgency. He denies having any known fevers. He denies having any back pain. He denies having any chills. The patient denies having any nausea, vomiting, or diarrhea. He reports that he does have some problems with constipation, however he did move his bowels earlier today. He denies having any blood in his stool or black or tarry stools. On review of systems otherwise, the patient denies having any known recent fevers, cough, congestion, neck pain, chest pain, shortness of breath, or neurologic symptoms. [facility] Past Medical History Narrative Medical The patient's past medical history is significant for hypertension, history of prostate cancer, history of sleep apnea, anemia, end-stage renal disease on hemodialysis. Hx Anticoagulant Therapy: Yes Arthritis: Yes Heart Rhythm Problems: No Cancer: Yes (prostate) Cardiovascular Problems: Yes High Cholesterol: No Chest Pain: Yes Congestive Heart Failure: No Diabetes: No Dialysis: Yes Diminished Hearing: No Endocrine: No Gastrointestinal Disorders: Yes GERD: Yes Glaucoma: No Genitourinary: Yes Hepatitis: No Hiatal Hernia: Yes Heparin Induced Thrombocytopen: No Hypertension: Yes Immune Disorder: No Inguinal Hernia: Yes (REPAIRED IN 2001.) Implanted Vascular Access Dvce: Yes Musculoskeletal: Yes Neurologic: No Psychiatric: No Reproductive: No Immunizations Current: Yes Renal Failure: Yes Sleep Apnea: Yes (CPAP) Thyroid Disease: No Tetanus Vaccination: Unknown Influenza Vaccination: No PNEUMOCCOCAL Vaccine (Year): 1 Past Surgical History Narrative Surgical The patient's past surgical history is significant for a hernia repair, left upper extremity AV fistula placement, renal stent placement bilateral ureters, uvulectomy, history of cataract surgery, history of prostatectomy, and a tonsillectomy. Abdominal Surgery: Yes (HERNIA REPAIR) Arteriovenous Shunt: Yes (AV fistula left upper arm) Body Medical Devices: artificial sphincter, stents in kidneys Coronary Artery Bypass Graft: No Eye Surgery: Yes (cataracts removed) Genitourinary Surgery: Yes (prostatectomy,urniary stent placed several times, TURP) Oral Surgery: Yes (uvulectomy) Prostatectomy: Yes (2000) Tonsillectomy: Yes Other Surgery: Yes (shunt lue 10/09/16) Social History Alcohol Use: No Tobacco Use: No (quit long time ago ) Substance Use: No Allergies-Medications (Allergen,Severity, Reaction): Coded Allergies: Sulfa (Sulfonamide Antibiotics) (Verified Allergy, Severe, Nausea/Vomiting , 05/03/18) *MDRO Multi-Drug Resistant Organism (Verified Adverse Reaction, Unknown, ) 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; (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, 07/01/17 MRSA PCR Screen POSITIVE - 01/23/2017 Reported Meds & Prescriptions Reported Meds & Active Scripts Active Doxycycline Hyclate 100 Mg Cap 100 Mg PO BID Ventolin Hfa 18 GM Inh (Albuterol Sulfate) 90 Mcg/Act Aer 2 Puff INH Q4-6H PRN Prednisone 50 Mg Tab 50 Mg PO DAILY 3 Days Keflex (Cephalexin) 500 Mg Capsule 500 Mg PO Q6H 10 Days Walker with Front Wheels (Device) 1 Mis Mis Ea .XX DIRECTED Reported Benazepril (Benazepril HCl) 20 Mg Tab 20 Mg PO DAILY Sodium Bicarbonate 325 Mg Tab 325 Mg PO DAILY Xalatan Opth Drops (Latanoprost) 0.005% Drops 1 Drop EACH EYE HS Norvasc (Amlodipine Besylate) 5 Mg Tab 5 Mg PO DAILY Review of Systems Except as stated in HPI: all other systems reviewed are Neg General / Constitutional: No: Fever Eyes: No: Visual changes HENT: No: Headaches Cardiovascular: No: Chest Pain or Discomfort Respiratory: No: Shortness of Breath Gastrointestinal: No: Abdominal Pain Genitourinary: Positive: Urgency, Dysuria, Decreased Urinary Output, Pelvic Pain Musculoskeletal: No: Pain Skin: No Rash Neurologic: No: Weakness Psychiatric: No: Depression Endocrine: No: Polydipsia Hematologic/Lymphatic: No: Easy Bruising Physical Exam Narrative General: The patient is a well-developed well-nourished male in no acute distress. Head and Neck exam: Head is normocephalic atraumatic. Eyes: EOMI, pupils are equal round and reactive to light. Nose: Midline septum with pink mucous membranes Mouth: Dentition unremarkable. Moist mucus membranes. Posterior oropharynx is not erythematous. No tonsillar hypertrophy. Uvula midline. Airway patent. Neck: No palpable lymphadenopathy. No nuchal rigidity. No thyromegaly. Cardiovascular: Regular rate and rhythm without murmurs, gallops, or rubs. No pulse deficit to the extremities on simultaneous auscultation and palpation of his radial. Lungs: Clear to auscultation bilaterally. No wheezes, rhonchi, or rales. Abdomen: Soft, with suprapubic tenderness on palpation. No guarding, rebound, or rigidity. Normal bowel sounds are audible. No tenderness on palpation of McBurney's point. Negative Nuñez sign. Extremities: No clubbing, cyanosis, or edema. 2+ pulses in all 4 extremities. Back: No spinous process tenderness to palpation. No costovertebral angle tenderness to palpation. Neurologic Exam: Cranial nerves 2-12 were intact on exam. Strength is 5/5 in all 4 extremities. No sensory deficits noted. No dysdiadochokinesis. Good finger to nose and Heel to yanes bilaterally. Skin Exam: No rash noted. Intact skin that is warm and dry. Male genital exam: No genital lesions or erythema noted. No crepitus. No swelling or tenderness of the testicles. No palpable hernia. Data Data Last Documented VS Vital Signs Date Time Temp Pulse Resp B/P (MAP) Pulse Ox O2 Delivery O2 Flow Rate FiO2 05/03/18 02:29 98.2 84 18 154/69 (97) 98 Orders Orders Urinalysis - C+S If Indicated (05/03/18 02:46) Urinary Catheter Management KENYA.Q8H (05/03/18 02:46) Complete Blood Count With Diff (05/03/18 02:58) Basic Metabolic Panel (Bmp) (05/03/18 02:58) Iv Access Insert/Monitor (05/03/18 02:58) Ecg Monitoring (05/03/18 02:58) Oximetry (05/03/18 02:58) Urinary Catheter Insert/Apply (05/03/18 02:58) Ceftriaxone Inj (Rocephin Inj) (05/03/18 04:00) Urine Culture (05/03/18 03:05) Doxycycline (Vibratab) (05/03/18 04:30) Labs Laboratory Tests Test 05/03/18 03:05 05/03/18 03:25 Urine Color YELLOW Urine Turbidity CLOUDY Urine pH 6.5 Urine Specific [place] 1.017 Urine Protein 100 mg/dL Urine Glucose (UA) NEG mg/dL Urine Ketones NEG mg/dL Urine Occult Blood SMALL Urine Nitrite NEG Urine Bilirubin NEG Urine Urobilinogen LESS THAN 2.0 MG/DL Urine Leukocyte Esterase LARGE Urine RBC 3 /hpf Urine WBC /hpf Urine WBC Clumps MANY Urine Squamous Epithelial Cells 1 /hpf Urine Transitional Epithelial Cells <1 /hpf Urine Bacteria FEW /hpf Microscopic Urinalysis Comment CULTURE INDICATED White Blood Count 13.9 TH/MM3 Red Blood Count 2.79 MIL/MM3 Hemoglobin 9.2 GM/DL Hematocrit 26.8 % Mean Corpuscular Volume 96.3 FL Mean Corpuscular Hemoglobin 33.1 PG Mean Corpuscular Hemoglobin Concent 34.4 % Red Cell Distribution Width 18.0 % Platelet Count 220 TH/MM3 Mean Platelet Volume 7.3 FL Neutrophils (%) (Auto) 72.7 % Lymphocytes (%) (Auto) 17.1 % Monocytes (%) (Auto) 6.8 % Eosinophils (%) (Auto) 2.7 % Basophils (%) (Auto) 0.7 % Neutrophils # (Auto) 10.1 TH/MM3 Lymphocytes # (Auto) 2.4 TH/MM3 Monocytes # (Auto) 0.9 TH/MM3 Eosinophils # (Auto) 0.4 TH/MM3 Basophils # (Auto) 0.1 TH/MM3 CBC Comment DIFF FINAL Differential Comment Blood Urea Nitrogen 56 MG/DL Creatinine 4.84 MG/DL Random Glucose 124 MG/DL Calcium Level 8.9 MG/DL Sodium Level 136 MEQ/L Potassium Level 4.0 MEQ/L Chloride Level 99 MEQ/L Carbon Dioxide Level 23.1 MEQ/L Anion Gap 14 MEQ/L Estimat Glomerular Filtration Rate 12 ML/MIN MDM Medical Decision Making Medical Screen Exam Complete: Yes Emergency Medical Condition: Yes Medical Record Reviewed: Yes Differential Diagnosis Urinary tract infection, versus prostatitis, versus decreased urine output related to renal failure Narrative Course During the course of the patient's emergency department visit, the patient's history, examination, and differential diagnosis were reviewed with the patient. The patient was placed on a cardiac cath lab technologist with oximetry and frequent blood pressure monitoring. The patient had IV access obtained and blood work sent for analysis. The patient reports a sensation of urinary retention. The patient reports having multiple catheters in the past and is agreeable with plan to place a Michaels catheter to evaluate for retention and to obtain a sterile sample of urine. A Michaels catheter was placed to gravity and the patient had 200 cc of retained urine noted. The urine was cloudy. The patient was initially provided Rocephin 1 g IV. The patient's laboratory studies were reviewed and remarkable for a white count of 13.9, hemoglobin 9.2, platelets 220 with 72.7 neutrophils, basic metabolic profile is remarkable for a BUN of 56, creatinine 4.84, glucose 124, urinalysis shows small occult blood large leukocyte esterase 3 RBCs and, culture indicated. The patient's electronic medical record was reviewed. The patient last had a urine culture that was positive for MRSA in October 2017. This urine culture on culture and sensitivity was sensitive to tetracycline and Bactrim, however the patient has a sulfa allergy, therefore the patient was given doxycycline 100 mg p.o. 1 now and continued on doxycycline as an outpatient with close follow-up with his urologist. The patient is instructed regarding the importance of following up with his urologist. He is instructed to call in the morning to schedule a follow-up appointment regarding his new symptoms. Due to the patient's symptoms of urinary retention, the patient will be continued with the Michaels catheter to gravity. The patient is resting comfortably and feels better, is alert and in no distress. The patient's results and examination findings were discussed with the patient. The repeat examination is unremarkable and benign. The history, exam, diagnostic testing, and current condition do not suggest any significant pathology to warrant further testing, continued ED treatment, admission, or surgical evaluation at this point. The vital signs have been stable. The patient does not have uncontrollable pain, intractable vomiting, or other significant symptoms. The patient's condition is stable and appropriate for discharge. The patient will pursue further outpatient evaluation with a primary care physician or other designated or consulting physician as indicated in the discharge instructions. The patient is instructed to report back to the emergency department immediately for reexamination in the mean time if he/ she develops any new or worsening signs or symptoms. The patient expressed understanding and was agreeable with this plan. Diagnosis Primary Impression: Urinary retention Additional Impression: Urinary tract infection Qualified Codes: N39.0 - Urinary tract infection, site not specified Referrals: Fidencio Marie MD 2 days Primary Care Physician 2 days Patient Instructions: General Instructions, Urinary Retention in Men (ED), Urinary Tract Infection in Men (ED) Med/Other Pt SpecificInfo: Prescription(s) given Scripts Doxycycline Hyclate (Doxycycline Hyclate) 100 Mg Cap 100 MG PO BID for Infection, #20 CAP 0 Refills Prov: Maria Elena Yin MD 05/03/18 Disposition: 01 DISCHARGE HOME Condition: Stable Maria Elena Yin MD May 03, 2018 03:01
[2018-05-03 03:44] LABS: AUTOMATED NEUTROPHIL # 10.1 TH/MM3 (1.8-7.7); BASOPHIL # 0.1 TH/MM3 (0-0.2); BASOPHIL % 0.7 % (0.0-2.0); EOSINOPHIL # 0.4 TH/MM3 (0-0.4); EOSINOPHIL % 2.7 % (0.0-4.0); HEMATOCRIT 26.8 % (39.0-51.0); HEMOGLOBIN 9.2 GM/DL (13.0-17.0); LYMPH % 17.1 % (9.0-44.0); LYMPHOCYTE # 2.4 TH/MM3 (1.0-4.8); MEAN CELL VOLUME 96.3 FL (80.0-100.0); MEAN CORPUSCULAR HEMOGLOBIN 33.1 PG (27.0-34.0); MEAN CORPUSCULAR HGB CONC 34.4 % (32.0-36.0); MEAN PLATELET VOLUME 7.3 FL (7.0-11.0); MONO % 6.8 % (0.0-8.0); MONOCYTE # 0.9 TH/MM3 (0-0.9); NEUT % 72.7 % (16.0-70.0); PLATELET COUNT 220 TH/MM3 (150-450); RED BLOOD COUNT 2.79 MIL/MM3 (4.50-5.90); WHITE BLOOD COUNT 13.9 TH/MM3 (4.0-11.0)
[2018-05-03 03:52] LABS: BACTERIA, URINE FEW /hpf; BILIRUBIN, URINE NEG (NEG); BLOOD, URINE SMALL (NEG); GLUCOSE,URINE NEG (NEG); KETONE, URINE NEG (NEG); NITRITE,URINE NEG (NEG); PH, URINE 6.5 (5.0-8.5); SQUAMOUS EPITHELIAL CELL URINE 1 /hpf (0-5); TRANSITIONAL EPI CELLS, URINE <1 /hpf; URINE COLOR YELLOW (YELLW/STRAW); URINE LEUKOCYTE ESTERASE LARGE (NEG); WHITE BLOOD CELL CLUMPS MANY
[2018-05-03] MEDS ORDERED: cefTRIAXone INJ 1,000 MG in SODIUM CHLORIDE 0.9% INJ 100 ML IV ONE (04:00)
[2018-05-03 04:02] LABS: BICARBONATE 23.1 MEQ/L (21.0-32.0); CALCIUM 8.9 MG/DL (8.5-10.1); CREATININE 4.84 MG/DL (0.60-1.30)
[2018-05-03] MEDS ORDERED: DOXY100C PO (04:14)
[2018-05-03] MEDS ORDERED: DOXYCYCLINE HYCLATE 100 MG TAB PO ONE (04:30)
== END 2018-05-03 05:04 | disposition home or self-care (01) ==
LOC: NEPC 02:22
DX: N39.0 Urinary tract infection, site not specified (principal); I12.0 Hypertensive chronic kidney disease with stage 5 chronic kidney disease or end stage renal disease; N18.6 End stage renal disease; Z99.2 Dependence on renal dialysis; Z87.891 Personal history of nicotine dependence
CPT/HCPCS: 51702; 80048; 81001; 85025; 87086; 96365; 99284; J0696

== ENCOUNTER 2018-05-12 15:22 | Inpatient (IN) | payer MEDICARE, OTHER ==
[~2018-05-12] VITALS: Ht 177.8 cm; Wt 81.8 kg
[~2018-05-12 15:22] MED LIST changes: +DOXY100C PO
[2018-05-12 15:26] VITALS: BP 131/63; PULSE 99; RESP 20; TEMP 97.8; O2SAT 97
[2018-05-12 15:49] VITALS: O2SAT 98
--- NOTE | 2018-05-12 15:53 | PD ---
HPI Chief Complaint: Complaint Time Seen by Provider: 15:35 Travel History International Travel<30 days: No Contact w/Intl Traveler<30days: No Traveled to known affect area: No History of Present Illness HPI 82-year-old male presents for evaluation of perineal/scrotal pain and swelling. He has a history of recently having bilateral ureteral stents removed by his urologist Dr. Marie. He also has a history of prostate cancer, end-stage renal disease on hemodialysis Saturdays, hypertension, artificial sphincter. He was seen here on May 03 for evaluation of urinary retention. A Michaels catheter was placed. He followed up with his urologist this morning and had his catheter removed. He reports that for the past week he has had increased pain, swelling in the scrotum region. I spoke with Thalia Nickerson construction engineering manager for his urologist Dr. Marie who is sending the patient in for IV antibiotics, CT imaging and admission for treatment of scrotal infection. Pain is a burning pain, moderate, aggravated by palpation, no relieving factors. Denies fevers, chills, nausea, vomiting, cough, congestion, chest pain, shortness of breath, flank pain. He has no other complaints at this time. PFSH Past Medical History Hx Anticoagulant Therapy: Yes Arthritis: Yes Heart Rhythm Problems: No Cancer: Yes (prostate) Cardiovascular Problems: Yes High Cholesterol: No Chest Pain: Yes Congestive Heart Failure: No Diabetes: No Dialysis: Yes Diminished Hearing: No Endocrine: No Gastrointestinal Disorders: Yes GERD: Yes Glaucoma: No Genitourinary: Yes Hepatitis: No Hiatal Hernia: Yes Heparin Induced Thrombocytopen: No Hypertension: Yes Immune Disorder: No Inguinal Hernia: Yes (REPAIRED IN 2001.) Implanted Vascular Access Dvce: Yes Musculoskeletal: Yes Neurologic: No Psychiatric: No Reproductive: No Immunizations Current: Yes Renal Failure: Yes Sleep Apnea: Yes (CPAP) Thyroid Disease: No PNEUMOCCOCAL Vaccine (Year): 1 Past Surgical History Abdominal Surgery: Yes (HERNIA REPAIR) Arteriovenous Shunt: Yes (AV fistula left upper arm) Body Medical Devices: artificial sphincter, stents in kidneys Coronary Artery Bypass Graft: No Eye Surgery: Yes (cataracts removed) Genitourinary Surgery: Yes (prostatectomy,urniary stent placed several times, TURP) Oral Surgery: Yes (uvulectomy) Prostatectomy: Yes (2000) Tonsillectomy: Yes Other Surgery: Yes (shunt lue 10/09/16) Social History Alcohol Use: No Tobacco Use: No (quit long time ago ) Substance Use: No Allergies-Medications (Allergen,Severity, Reaction): Coded Allergies: Sulfa (Sulfonamide Antibiotics) (Verified Allergy, Severe, Nausea/Vomiting , 05/12/18) *MDRO Multi-Drug Resistant Organism (Verified Adverse Reaction, Unknown, ) 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; (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, 07/01/17 MRSA PCR Screen POSITIVE - 01/23/2017 Reported Meds & Prescriptions Reported Meds & Active Scripts Active Doxycycline Hyclate 100 Mg Cap 100 Mg PO BID Walker with Front Wheels (Device) 1 Mis Mis Ea .XX DIRECTED Reported Combigan Opth Drops (Brimonidine-Timolol Opth Drops) 0.2-0.5% Soln 1 Drop EACH EYE Q12HR Aspirin 81 Low Dose (Aspirin) 81 Mg Chew 81 Mg CHEW DAILY Vitamin D2 (Ergocalciferol) 2,000 Unit Tab 4,000 Units PO DAILY Ranitidine (Ranitidine HCl) 150 Mg Tab 150 Mg PO DAILY Benazepril (Benazepril HCl) 20 Mg Tab 20 Mg PO DAILY Sodium Bicarbonate 325 Mg Tab 325 Mg PO DAILY Xalatan Opth Drops (Latanoprost) 0.005% Drops 1 Drop EACH EYE HS Norvasc (Amlodipine Besylate) 5 Mg Tab 5 Mg PO DAILY Review of Systems Except as stated in HPI: all other systems reviewed are Neg Physical Exam Narrative GENERAL: Well-developed well-nourished male in no acute distress SKIN: Warm and dry. HEAD: Atraumatic. Normocephalic. EYES: Pupils equal and round. No scleral icterus. No injection or drainage. ENT: No nasal bleeding or discharge. Mucous membranes pink and moist. NECK: Trachea midline. No JVD. CARDIOVASCULAR: Regular rate and rhythm. No murmur appreciated. RESPIRATORY: No accessory muscle use. Clear to auscultation. Breath sounds equal bilaterally. GASTROINTESTINAL: Abdomen soft, non-tender, nondistended. Hepatic and splenic margins not palpable. examination reveals edema and somewhat erythematous scrotum. Tender to palpation. MUSCULOSKELETAL: No obvious deformities. No clubbing. No cyanosis. No edema. NEUROLOGICAL: Awake and alert. No obvious cranial nerve deficits. Motor grossly within normal limits. Normal speech. Data Data Last Documented VS Vital Signs Date Time Temp Pulse Resp B/P (MAP) Pulse Ox O2 Delivery O2 Flow Rate FiO2 05/12/18 16:53 89 24 105/57 (73) 100 Room Air 05/12/18 15:26 97.8 Orders Orders Sepsis Workup Initiated (05/12/18 ) Complete Blood Count With Diff (05/12/18 15:46) Comprehensive Metabolic Panel (05/12/18 15:46) Lactic Acid Sepsis Protocol (05/12/18 15:46) Urinalysis - C+S If Indicated (05/12/18 15:46) Blood Culture (05/12/18 15:46) Blood Glucose (05/12/18 15:46) Ecg Monitoring (05/12/18 15:46) Iv Access Insert/Monitor (05/12/18 15:46) Oximetry (05/12/18 15:46) Oxygen Administration (05/12/18 15:46) Ct Abd/Pel W/O Iv Contrast (05/12/18 15:46) Piperacil-Tazo 2.25 Gm Premix (Zosyn 2.2 (05/12/18 16:00) Vancomycin Inj (Vancomycin Inj) (05/12/18 16:00) Sodium Chlor 0.9% 1000 Ml Inj (Ns 1000 M (05/12/18 17:09) Admit Order (Ed Use Only) (05/12/18 17:38) Labs Laboratory Tests Test 05/12/18 16:00 White Blood Count 19.3 TH/MM3 Red Blood Count 2.75 MIL/MM3 Hemoglobin 8.9 GM/DL Hematocrit 26.2 % Mean Corpuscular Volume 95.2 FL Mean Corpuscular Hemoglobin 32.4 PG Mean Corpuscular Hemoglobin Concent 34.1 % Red Cell Distribution Width 18.5 % Platelet Count 296 TH/MM3 Mean Platelet Volume 7.4 FL Neutrophils (%) (Auto) 77.1 % Lymphocytes (%) (Auto) 14.8 % Monocytes (%) (Auto) 5.6 % Eosinophils (%) (Auto) 1.5 % Basophils (%) (Auto) 1.0 % Neutrophils # (Auto) 14.9 TH/MM3 Lymphocytes # (Auto) 2.9 TH/MM3 Monocytes # (Auto) 1.1 TH/MM3 Eosinophils # (Auto) 0.3 TH/MM3 Basophils # (Auto) 0.2 TH/MM3 CBC Comment DIFF FINAL Differential Comment Blood Urea Nitrogen 49 MG/DL Creatinine 4.17 MG/DL Random Glucose 113 MG/DL Total Protein 7.4 GM/DL Albumin 2.8 GM/DL Calcium Level 9.1 MG/DL Alkaline Phosphatase 89 U/L Aspartate Amino Transf (AST/SGOT) 15 U/L Alanine Aminotransferase (ALT/SGPT) 15 U/L Total Bilirubin 0.6 MG/DL Sodium Level 137 MEQ/L Potassium Level 4.5 MEQ/L Chloride Level 99 MEQ/L Carbon Dioxide Level 25.2 MEQ/L Anion Gap 13 MEQ/L Estimat Glomerular Filtration Rate 14 ML/MIN Lactic Acid Level 1.4 mmol/L MDM Medical Decision Making Medical Screen Exam Complete: Yes Emergency Medical Condition: Yes Medical Record Reviewed: Yes Differential Diagnosis Scrotal cellulitis, fourniers, scrotal edema, anasarca Narrative Course Lab work, blood cultures, urinalysis, CT abdomen pelvis ordered. The patient was given IV fluids and broad-spectrum antibiotics. CBC reveals WBC count of 19.3, hemoglobin 8.9, GFR is 14 consistent with his baseline, lactic acid 1.4, CT abdomen and pelvis reveals multiple small gallstones, urinary sphincter decompressed bladder no renal stone large hiatal hernia which is stable. At this point time the plan is to admit the patient for treatment of scrotal cellulitis and sepsis. He is agreeable. Sepsis Criteria SIRS Criteria (2 or more): Heart rate over 90, WBC > 31121, < 4000 or > 10% bands Sepsis Criteria (SIRS+source): Infect source susp/known Criteria Outcome: Meets sepsis criteria Diagnosis Primary Impression: Cellulitis of scrotum Additional Impression: Sepsis Admitting Information Admitting Physician Requests: Admit Carmelo Krishnan May 12, 2018 15:53
[2018-05-12] MEDS ORDERED: VANCOMYCIN INJ 1,000 MG in SODIUM CHLOR 0.9% 250 ML INJ 250 ML IV ONE (16:00)
[2018-05-12] MEDS ORDERED: PIPERACIL-TAZO 2.25 GM PREMIX 50 ML IV ONE (16:00)
[2018-05-12 16:13] LABS: AUTOMATED NEUTROPHIL # 14.9 TH/MM3 (1.8-7.7); BASOPHIL # 0.2 TH/MM3 (0-0.2); EOSINOPHIL # 0.3 TH/MM3 (0-0.4); EOSINOPHIL % 1.5 % (0.0-4.0); HEMATOCRIT 26.2 % (39.0-51.0); HEMOGLOBIN 8.9 GM/DL (13.0-17.0); LYMPH % 14.8 % (9.0-44.0); LYMPHOCYTE # 2.9 TH/MM3 (1.0-4.8); MEAN CELL VOLUME 95.2 FL (80.0-100.0); MEAN CORPUSCULAR HEMOGLOBIN 32.4 PG (27.0-34.0); MEAN CORPUSCULAR HGB CONC 34.1 % (32.0-36.0); MEAN PLATELET VOLUME 7.4 FL (7.0-11.0); MONO % 5.6 % (0.0-8.0); MONOCYTE # 1.1 TH/MM3 (0-0.9); NEUT % 77.1 % (16.0-70.0); PLATELET COUNT 296 TH/MM3 (150-450); RED BLOOD COUNT 2.75 MIL/MM3 (4.50-5.90); RED CELL DISTRIBUTION WIDTH 18.5 % (11.6-17.2); WHITE BLOOD COUNT 19.3 TH/MM3 (4.0-11.0)
[2018-05-12 16:40] LABS: ALBUMIN 2.8 GM/DL (3.4-5.0); ALT (GPT) 15 U/L (12-78); AST (GOT) 15 U/L (15-37); BICARBONATE 25.2 MEQ/L (21.0-32.0); BLOOD UREA NITROGEN 49 MG/DL (7-18); CALCIUM 9.1 MG/DL (8.5-10.1); CHLORIDE 99 MEQ/L (98-107); CREATININE 4.17 MG/DL (0.60-1.30); GLOMERULAR FILTRATION RATE 14 ML/MIN (>89); GLUCOSE,RANDOM 113 MG/DL (74-106); SODIUM (NA) 137 MEQ/L (136-145)
[2018-05-12 16:42] LABS: ALKALINE PHOSPHATASE 89 U/L (45-117); TOTAL BILIRUBIN ADULT 0.6 MG/DL (0.2-1.0); TOTAL PROTEIN 7.4 GM/DL (6.4-8.2)
[2018-05-12 16:53] VITALS: BP 105/57; PULSE 89; RESP 24; O2SAT 100
--- NOTE | 2018-05-12 16:57 | RADRPT ---
EXAM DATE: 05/12/2018 4:19 PM EDT AGE/SEX: 82 years / Male INDICATIONS: Abdominal pain, hematuria. CLINICAL DATA: This is the patient's initial encounter. Patient reports that signs and symptoms have been present for 1 day and indicates a pain score of 5/10. MEDICAL/SURGICAL HISTORY: Hypertension. Gastroesophageal reflux disease. Anemia. Dialysis, h iatal hernia, prostate cancer, Prostatectomy. Hiatal hernia repair. RADIATION DOSE: 9.80 CTDI (mGy) COMPARISON: [facility] [place], CT ABDOMEN & PELVIS W/O CONTRAST, 01/09/2018. . TECHNIQUE: Multiple contiguous axial images were obtained through the abdomen. Images were obtained using multiple row detector helical technique. Using dose reduction techniques, radiation dose was ke pt as low as reasonably achievable to obtain optimal diagnostic quality images. FINDINGS: Moderate emphysematous changes are seen in both lung bases. Stable miliary and interstitial densities in both lower lungs. Prominent hiatal hernia. Liver is free of focal defects. Multiple small gallsto harshil present in a benign-appearing gallbladder. One of the stones may be in the common duct. Pancreas and spleen unremarkable Kidneys are small without stone. 1.4 similar cyst on the right 7 mm indeterminate soft tissue mass la teral right Extensive vascular calcifications. There are no inflammatory changes in the abdomen Multiple diverticuli and solid stool are present in the sigmoid colon. There are no inflammatory de la cruz ges evident. Urinary sphincter is noted. Review of bone windows reveals degenerative changes.. CONCLUSION: 1. Multiple small gallstones 2. Urinary sphincter were decompressed bladder 3. No renal stone 4. Large hiatal hernia stable in the interval. 5. Renal stents have been removed. There is no hydronephrosis. Electronically signed by: Molina Cancino MD 05/12/2018 4:56 PM EDT
[2018-05-12] MEDS ORDERED: ERGO2000 PO (17:02)
[2018-05-12] MEDS ORDERED: ASPI1CHW4 CHEW (17:02)
[2018-05-12] MEDS ORDERED: COMB0.2S EACH EYE (17:02)
[2018-05-12] MEDS ORDERED: RANI150T PO (17:02)
[2018-05-12] MEDS ORDERED: SODIUM CHLOR 0.9% 1000 ML INJ 1,000 ML IV SCH (17:09)
--- NOTE | 2018-05-12 18:06 | HHI.HP ---
HPI Service [facility] Hospitalists Primary Care Physician Jeff Jarvis MD Admission Diagnosis Scrotal cellulitis, sepsis Diagnoses: Chief Complaint: Scrotal pain. Travel History International Travel<30 Days: No Contact w/Intl Traveler <30 Da: No Traveled to Known Affected Are: No Sepsis Criteria SIRS Criteria (2 or more): Heart rate over 90, WBC > 61240, < 4000 or > 10% bands Sepsis Criteria (SIRS+source): Infect source susp/known History of Present Illness This is an 82-year-old male with past medical history of end-stage renal disease on hemodialysis, hypertension, artificial sphincter who presents to [facility] for ablation of perineal/scrotal pain and swelling. The patient has a history of a recent bilateral ureteral stents removed by his urologist Dr. Anders. The patient is somewhat a poor historian and he states he was sent by his urologist to be seen here. As per documentation from previous admissions the patient was seen here on May 03 for evaluation of urinary retention and a Michaels catheter was then placed. The patient states he followed up as his urologist this morning and his catheter was removed. The patient however states that for the past week he has had increased pain and swelling as well as redness in the scrotum region. The patient was sent from his urologist office for IV antibiotics, CT imaging and admission for treatment of a scrotal infection. Patient described the pain as burning, constant worse with movement aggravated by palpation and without any relieving factors. The patient otherwise denies any fevers, chills, nausea, vomiting, diarrhea, shortness of breath, chest pain, flank pain. Review of Systems As per HPI, other systems reviewed by me and negative. Past Family Social History Past Medical History HTN, Prostate CA, Sleep Apnea, Anemia and ESRD on hemodialysis. Past Surgical History Hernia Repair, LUE AV Fistula, Renal Stent, Cataract Surgery, Prostatectomy, Uvulectomy, Tonsillectomy Reported Medications Reported Meds & Active Scripts Active Doxycycline Hyclate 100 Mg Cap 100 Mg PO BID Walker with Front Wheels (Device) 1 Mis Mis Ea .XX DIRECTED Reported Combigan Opth Drops (Brimonidine-Timolol Opth Drops) 0.2-0.5% Soln 1 Drop EACH EYE Q12HR Aspirin 81 Low Dose (Aspirin) 81 Mg Chew 81 Mg CHEW DAILY Vitamin D2 (Ergocalciferol) 2,000 Unit Tab 4,000 Units PO DAILY Ranitidine (Ranitidine HCl) 150 Mg Tab 150 Mg PO DAILY Benazepril (Benazepril HCl) 20 Mg Tab 20 Mg PO DAILY Sodium Bicarbonate 325 Mg Tab 325 Mg PO DAILY Xalatan Opth Drops (Latanoprost) 0.005% Drops 1 Drop EACH EYE HS Norvasc (Amlodipine Besylate) 5 Mg Tab 5 Mg PO DAILY Allergies: Coded Allergies: Sulfa (Sulfonamide Antibiotics) (Verified Allergy, Severe, Nausea/Vomiting , 05/12/18) *MDRO Multi-Drug Resistant Organism (Verified Adverse Reaction, Unknown, ) 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; (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, 07/01/17 MRSA PCR Screen POSITIVE - 01/23/2017 Active Ordered Medications Current Medications Medications (Trade) Dose Ordered Sig/Rahel Route Start Time Stop Time Status Last Admin Sodium Chloride 1,000 ml @ 1,000 mls/hr Q1H IV 05/12/18 17:09 05/12/18 18:08 Family History Denies family history of diabetes or cancer. Social History Negative for alcohol, tobacco or drugs. Physical Exam Vital Signs Vital Signs Date Time Temp Pulse Resp B/P (MAP) Pulse Ox O2 Delivery O2 Flow Rate FiO2 05/12/18 16:53 89 24 105/57 (73) 100 Room Air 05/12/18 15:49 98 Room Air 05/12/18 15:26 97.8 99 20 131/63 (85) 97 Physical Exam GENERAL: This is a well-nourished, well-developed patient, in no apparent distress. SKIN: No rashes, ecchymoses or lesions. Cool and dry. HEAD: Atraumatic. Normocephalic. No temporal or scalp tenderness. EYES: Pupils equal round and reactive. Extraocular motions intact. No scleral icterus. No injection or drainage. ENT: Nose without bleeding, purulent drainage or septal hematoma. Throat without erythema, tonsillar hypertrophy or exudate. Uvula midline. Airway patent. NECK: Trachea midline. No JVD or lymphadenopathy. Supple, nontender, no meningeal signs. CARDIOVASCULAR: Regular rate and rhythm without murmurs, gallops, or rubs. RESPIRATORY: Clear to auscultation. Breath sounds equal bilaterally. No wheezes , rales, or rhonchi. GASTROINTESTINAL: Abdomen soft, non-tender, nondistended. No hepato-splenomegaly , or palpable masses. No guarding. MUSCULOSKELETAL: Extremities without clubbing, cyanosis, or edema. No joint tenderness, effusion, or edema noted. No calf tenderness. Negative Homans sign bilaterally. NEUROLOGICAL: Awake and alert. Cranial nerves II through XII intact. Motor and sensory grossly within normal limits. Five out of 5 muscle strength in all muscle groups. Normal speech. : There is a scrotal swelling with erythema, tenderness, no fluid collection or subcutaneous gas palpated. Laboratory Laboratory Tests Test 05/12/18 16:00 White Blood Count 19.3 Red Blood Count 2.75 Hemoglobin 8.9 Hematocrit 26.2 Mean Corpuscular Volume 95.2 Mean Corpuscular Hemoglobin 32.4 Mean Corpuscular Hemoglobin Concent 34.1 Red Cell Distribution Width 18.5 Platelet Count 296 Mean Platelet Volume 7.4 Neutrophils (%) (Auto) 77.1 Lymphocytes (%) (Auto) 14.8 Monocytes (%) (Auto) 5.6 Eosinophils (%) (Auto) 1.5 Basophils (%) (Auto) 1.0 Neutrophils # (Auto) 14.9 Lymphocytes # (Auto) 2.9 Monocytes # (Auto) 1.1 Eosinophils # (Auto) 0.3 Basophils # (Auto) 0.2 CBC Comment DIFF FINAL Differential Comment Blood Urea Nitrogen 49 Creatinine 4.17 Random Glucose 113 Total Protein 7.4 Albumin 2.8 Calcium Level 9.1 Alkaline Phosphatase 89 Aspartate Amino Transf (AST/SGOT) 15 Alanine Aminotransferase (ALT/SGPT) 15 Total Bilirubin 0.6 Sodium Level 137 Potassium Level 4.5 Chloride Level 99 Carbon Dioxide Level 25.2 Anion Gap 13 Estimat Glomerular Filtration Rate 14 Lactic Acid Level 1.4 Date/Time Source Procedure Growth Status 05/12/18 16:05 Blood Peripheral Aerobic Blood Culture Pending Received 05/12/18 16:05 Blood Peripheral Anaerobic Blood Culture Pending Received Result Diagram: 05/12/18 1600 05/12/18 1600 Imaging Last Impressions Abdomen/Pelvis CT 05/12/18 1546 Signed Impressions: Review of bone windows reveals degenerative changes.. CONCLUSION: 1. Multiple small gallstones 2. Urinary sphincter were decompressed bladder 3. No renal stone 4. Large hiatal hernia stable in the interval. 5. Renal stents have been removed. There is no hydronephrosis. Images reviewed by me. Caprini VTE Risk Assessment Caprini VTE Risk Assessment: Mod/High Risk (score >= 2) Caprini Risk Assessment Model Point Value = 1 Point Value = 2 Point Value = 3 Point Value = 5 Age 41-60 Minor surgery BMI > 25 kg/m2 Swollen legs Varicose veins or History of unexplained or recurrent spontaneous Oral contraceptives or hormone replacement Sepsis (< 1 month) Serious lung disease, including pneumonia (< 1 month) Abnormal pulmonary function Acute myocardial infarction Congestive heart failure (< 1 month) History of inflammatory bowel disease Medical patient at bed rest Age 61-74 Arthroscopic surgery Major open surgery (> 45 min) Laparoscopic surgery (> 45 min) Malignancy Confined to bed (> 72 hours) Immobilizing plaster cast Central venous access Age >= 75 History of VTE Family history of VTE Factor V Leiden Prothrombin [id number] Lupus anticoagulant Anticardiolipin antibodies Elevated serum homocysteine Heparin-induced thrombocytopenia Other congenital or acquired thrombophilia Stroke (< 1 month) Elective arthroplasty Hip, pelvis, or leg fracture Acute spinal cord injury (< 1 month) Prophylaxis Regimen Total Risk Factor Score Risk Level Prophylaxis Regimen 0-1 Low Early ambulation 2 Moderate Order ONE of the following: *Sequential Compression Device (SCD) *Heparin 5000 units SQ BID 3-4 Higher Order ONE of the following medications: *Heparin 5000 units SQ TID *Enoxaparin/Lovenox 40 mg SQ daily (WT < 150 kg, CrCl > 30 mL/min) *Enoxaparin/Lovenox 30 mg SQ daily (WT < 150 kg, CrCl > 10-29 mL/min) *Enoxaparin/Lovenox 30 mg SQ BID (WT < 150 kg, CrCl > 30 mL/min) AND/OR *Sequential Compression Device (SCD) 5 or more Highest Order ONE of the following medications: *Heparin 5000 units SQ TID (Preferred with Epidurals) *Enoxaparin/Lovenox 40 mg SQ daily (WT < 150 kg, CrCl > 30 mL/min) *Enoxaparin/Lovenox 30 mg SQ daily (WT < 150 kg, CrCl > 10-29 mL/min) *Enoxaparin/Lovenox 30 mg SQ BID (WT < 150 kg, CrCl > 30 mL/min) AND *Sequential Compression Device (SCD) Assessment and Plan Problem List: (1) Sepsis ICD Code: A41.9 - Sepsis, unspecified organism Status: Acute (2) Cellulitis of scrotum ICD Code: N49.2 - Inflammatory disorders of scrotum Status: Acute (3) ESRD on hemodialysis ICD Code: N18.6 - End stage renal disease; Z99.2 - Dependence on renal dialysis Status: Chronic (4) Status post cystoscopy ICD Code: Z98.89 - Other specified postprocedural states Status: Resolved (5) Hypertension ICD Code: I10 - Essential (primary) hypertension Status: Chronic (6) HTN (hypertension) ICD Code: I10 - Essential (primary) hypertension Status: Acute Assessment and Plan Sepsis present on admission patient with leukocytosis, heart rate more than 90 and this was being his gross colitis. The patient was given IV vancomycin IV Zosyn which I will continue. CT abdomen and pelvis showed multiple gallstones, urinary sphincter with the compressed bladder. No renal stones, large hiatal hernia which seems to be stable, renal stents have been removed and there is no hydronephrosis. Placed on IV fluids Consult nephrology for hemodialysis. Monitor vital signs UA positive with cloudy urine, large leukocyte esterase and many white blood cell clumps. IV antibiotics as above. Consult ID and urology. We will place on Lovenox of cutaneously and SCDs for DVT prophylaxis Code Status Full code Discussed Condition With ED physician, RN Physician Certification 2 Midnight Certification Type: Admission for Inpatient Services Order for Inpatient Services The services are ordered in accordance with Medicare regulations or non- Medicare payer requirements, as applicable. In the case of services not specified as inpatient-only, they are appropriately provided as inpatient services in accordance with the 2-midnight benchmark. Estimated LOS (days): 2 days is the estimated time the patient will need to remain in the hospital, assuming treatment plan goals are met and no additional complications. Post-Hospital Plan: Not yet determined Ankur Jacob MD May 12, 2018 18:06
[2018-05-12 18:56] LABS: BACTERIA, URINE MANY /hpf; BILIRUBIN, URINE NEG (NEG); BLOOD, URINE LARGE (NEG); GLUCOSE,URINE NEG (NEG); KETONE, URINE NEG (NEG); NITRITE,URINE NEG (NEG); PH, URINE 6.5 (5.0-8.5); SQUAMOUS EPITHELIAL CELL URINE 3 /hpf (0-5); URINE COLOR YELLOW (YELLW/STRAW); URINE LEUKOCYTE ESTERASE LARGE (NEG); WHITE BLOOD CELL CLUMPS MANY
[2018-05-12 19:26] VITALS: BP 118/57; PULSE 88; RESP 20; O2SAT 99
[2018-05-12] MEDS ORDERED: LACTULOSE SYRUP 20 GM/30 ML CUP PO PRN (20:30)
[2018-05-12] MEDS ORDERED: BISACODYL 10 MG SUPP RECTAL PRN (20:30)
[2018-05-12] MEDS ORDERED: SODIUM CHLORIDE 0.9% FLUSH 10 ML FLUSH IV FLUSH PRN (20:30)
[2018-05-12] MEDS ORDERED: ACETAMINOPHEN 325 MG TAB PO PRN (20:30)
[2018-05-12] MEDS ORDERED: MAGNESIUM HYDROXIDE SUSP 30 ML CUP PO PRN (20:30)
[2018-05-12] MEDS ORDERED: NALOXONE HCL 0.4 MG/ML AMP IV PUSH PRN (20:30)
[2018-05-12] MEDS ORDERED: SENNOSIDES 8.6 MG TAB PO PRN (20:30)
[2018-05-12] MEDS ORDERED: NON-FORMULARY DRUG (Brimonidine-Timolol Opth Drops (Combigan Opth Drops) 1 DROP) EACH EYE SCH (21:00)
[2018-05-12] MEDS: DOCUSATE SODIUM 50 MG/SENNA 8.6 MG TAB PO SCH (21:00)
[2018-05-12] MEDS: LATANOPROST 0.005% OPHT SOLN 2.5 ML BTL EACH EYE SCH (21:00)
[2018-05-12] MEDS ORDERED: PILL SPLITTER OTHER PRN (21:30)
[2018-05-12] MEDS: SODIUM CHLORIDE 0.9% FLUSH 10 ML FLUSH IV FLUSH SCH (21:47)
[2018-05-12] MEDS: ENOXAPARIN SODIUM 30 MG/0.3 ML SYRINGE SQ SCH (21:47)
[2018-05-12] MEDS: BRIMONIDINE TARTRATE 0.2% OPHT SOLN 5 ML BTL EACH EYE SCH (22:00)
[2018-05-12] MEDS: TIMOLOL MALEATE 0.5% OPHT SOLN 5 ML BTL EACH EYE SCH (22:00)
[2018-05-12 23:13] VITALS: BP 119/60; PULSE 83; RESP 16; O2SAT 97
[2018-05-13] VITALS (8 sets, daily range): BP systolic 104–122; BP diastolic 50–78; PULSE 71–82; RESP 17–20; TEMP 97.3–98; O2SAT 98–100
[2018-05-13 05:04] LABS: AUTOMATED NEUTROPHIL # 9.8 TH/MM3 (1.8-7.7); BASOPHIL # 0.1 TH/MM3 (0-0.2); BASOPHIL % 0.8 % (0.0-2.0); EOSINOPHIL # 0.7 TH/MM3 (0-0.4); EOSINOPHIL % 5.3 % (0.0-4.0); HEMATOCRIT 22.1 % (39.0-51.0); HEMOGLOBIN 7.6 GM/DL (13.0-17.0); LYMPH % 13.1 % (9.0-44.0); LYMPHOCYTE # 1.7 TH/MM3 (1.0-4.8); MEAN CELL VOLUME 93.3 FL (80.0-100.0); MEAN CORPUSCULAR HGB CONC 34.2 % (32.0-36.0); MEAN PLATELET VOLUME 7.1 FL (7.0-11.0); MONO % 7.1 % (0.0-8.0); MONOCYTE # 0.9 TH/MM3 (0-0.9); NEUT % 73.7 % (16.0-70.0); PLATELET COUNT 225 TH/MM3 (150-450); RED BLOOD COUNT 2.37 MIL/MM3 (4.50-5.90); RED CELL DISTRIBUTION WIDTH 18.5 % (11.6-17.2); WHITE BLOOD COUNT 13.3 TH/MM3 (4.0-11.0)
[2018-05-13 05:29] LABS: ALBUMIN 2.3 GM/DL (3.4-5.0); AST (GOT) 13 U/L (15-37); BICARBONATE 23.8 MEQ/L (21.0-32.0); BLOOD UREA NITROGEN 51 MG/DL (7-18); CALCIUM 8.6 MG/DL (8.5-10.1); CHLORIDE 102 MEQ/L (98-107); CREATININE 4.44 MG/DL (0.60-1.30); GLOMERULAR FILTRATION RATE 13 ML/MIN (>89); GLUCOSE,RANDOM 108 MG/DL (74-106); SODIUM (NA) 137 MEQ/L (136-145)
[2018-05-13 05:32] LABS: ALKALINE PHOSPHATASE 73 U/L (45-117); ALT (GPT) 12 U/L (12-78); TOTAL BILIRUBIN ADULT 0.6 MG/DL (0.2-1.0); TOTAL PROTEIN 6.3 GM/DL (6.4-8.2)
[2018-05-13] MEDS: amLODIPine BESYLATE 5 MG TAB PO SCH (09:00)
[2018-05-13] MEDS: LISINOPRIL 20 MG TAB PO SCH (09:00)
[2018-05-13] MEDS: SODIUM BICARBONATE 325 MG TAB PO SCH (09:56)
[2018-05-13] MEDS: ASPIRIN 81 MG CHEW TAB CHEW SCH (09:56)
[2018-05-13] MEDS: DOCUSATE SODIUM 50 MG/SENNA 8.6 MG TAB PO SCH ×2 (09:56→20:20)
[2018-05-13] MEDS: FAMOTIDINE 20 MG TAB PO SCH ×2 (09:58→20:19)
[2018-05-13] MEDS: SODIUM CHLORIDE 0.9% FLUSH 10 ML FLUSH IV FLUSH SCH ×2 (09:58→20:21)
[2018-05-13] MEDS: TIMOLOL MALEATE 0.5% OPHT SOLN 5 ML BTL EACH EYE SCH ×2 (09:59→20:20)
[2018-05-13] MEDS: BRIMONIDINE TARTRATE 0.2% OPHT SOLN 5 ML BTL EACH EYE SCH ×2 (09:59→20:20)
--- NOTE | 2018-05-13 11:48 | PD.CONS ---
History of Present Illness Service Infectious disease Consult Requested By Dr. Goel Reason for Consult Evaluate patient with scrotal cellulitis, possible sepsis Primary Care Physician Jeff Jarvis MD Diagnoses: History of Present Illness Patient seen and examined. Records reviewed. Patient is an 82-year-old male, brought to the hospital per advice by his urologist, for evaluation of scrotal swelling and redness. Patient has had prior problem with UTI. He had required stent placement which according to the patient he had for about 6 months, and it was removed in the last month. Patient has a urinary sphincter placed for urinary incontinence, and when the stent was removed the sphincter was turned off. Last April for he had problem with difficulty urinating, and went to the emergency room. A Michaels catheter was placed at that time and he was told to follow-up with his urologist. There was a urine culture done at that time that grew Dorie albicans. He was discharged from the emergency room then on doxycycline. Patient was seen in the urologists office and was checked out, and the catheter was left in place. He was instructed to come back on the day of admission and he did that in the morning, and the catheter was removed that morning. He went back to the urologist office that same afternoon, and it was noted that his scrotum was swollen and somewhat red. Patient has been having problem with some discomfort in that area but has not really looked at it. He has not had any fever chills or sweats. Denies any nausea and vomiting. Patient is incontinent currently since his sphincter has been turned off. He has ESRD, and has been on hemodialysis since around December, and gets dialyzed Thursday, , and Saturdays. When he came in his white count was elevated at 19,000. He has been afebrile. As I mentioned he is incontinent. CT of the abdomen and pelvis did not show any hydronephrosis. Infectious disease consultation has been requested to evaluate the patient. Review of Systems Constitutional: DENIES: Fever, Chills, Night Sweats Eyes: DENIES: Eye pain Ears, nose, mouth, throat: DENIES: Nasal discharge, Oral lesions, Throat pain, Ear Pain, Sinus Pain Respiratory: DENIES: Cough, Shortness of breath Cardiovascular: DENIES: Chest pain, Palpitations, Syncope, Dyspnea on Exertion , Lower Extremity Edema Gastrointestinal: DENIES: Abdominal pain, Nausea, Vomiting, Difficulty Swallowing Genitourinary: COMPLAINS OF: Urinary incontinence, Testicular Pain, Testicular Swelling Musculoskeletal: DENIES: Joint pain, Joint Swelling Integumentary: DENIES: Pruritus, Rash Hematologic/lymphatic: DENIES: Bruising Immunologic/allergic: DENIES: Urticaria Neurologic: DENIES: Localized weakness Psychiatric: DENIES: Hallucinations Past Family Social History Allergies: Coded Allergies: Sulfa (Sulfonamide Antibiotics) (Verified Allergy, Severe, Nausea/Vomiting , 05/12/18) *MDRO Multi-Drug Resistant Organism (Verified Adverse Reaction, Unknown, ) 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; (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, 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 MRSA PCR Screen POSITIVE - 01/23/2017 Past Medical History Hypertension Prostate cancer Sleep apnea Anemia ESRD, on HD Past Surgical History Hernia Repair LUE AV Fistula Previous placement of ureteral stent, and has been removed Cataract Surgery Prostatectomy Uvulectomy Tonsillectomy Active Ordered Medications Current Medications Medications (Trade) Dose Ordered Sig/Rahel Route Start Time Stop Time Status Last Admin (NS Flush) 2 ml UNSCH PRN IV FLUSH 05/12/18 20:30 (NS Flush) 2 ml BID IV FLUSH 05/12/18 21:00 05/13/18 09:58 (Tylenol) 650 mg Q4H PRN PO 05/12/18 20:30 (Lovenox Inj) 30 mg Q24H SQ 05/12/18 21:00 05/12/18 21:47 (Narcan Inj) 0.4 mg UNSCH PRN IV PUSH 05/12/18 20:30 (Elizabeth-Colace) 1 tab BID PO 05/12/18 21:00 05/13/18 09:56 (Milk Of Magnesia Liq) 30 ml Q12H PRN PO 05/12/18 20:30 (Senokot) 17.2 mg Q12H PRN PO 05/12/18 20:30 (Dulcolax Supp) 10 mg DAILY PRN RECTAL 05/12/18 20:30 (Lactulose Liq) 30 ml DAILY PRN PO 05/12/18 20:30 (Norvasc) 5 mg DAILY PO 05/13/18 09:00 (Aspirin Chew) 81 mg DAILY CHEW 05/13/18 09:00 05/13/18 09:56 (Prinivil) 20 mg DAILY PO 05/13/18 09:00 (Xalatan 0.005% Opth Soln) 1 drop HS EACH EYE 05/12/18 21:00 (Sodium Bicarbonate) 325 mg DAILY PO 05/13/18 09:00 05/13/18 09:56 (Pepcid) 10 mg BID PO 05/13/18 09:00 05/13/18 09:58 (Alphagan 0.2% Opth Soln) 1 drop Q12HR EACH EYE 05/12/18 22:00 05/13/18 09:59 (Timoptic 0.5% Opth Soln) 1 drop Q12HR EACH EYE 05/12/18 22:00 05/13/18 09:59 (Pill Splitter) 1 ea UNSCH PRN OTHER 05/12/18 21:30 Family History Noncontributory to current ID problem Social History Denies smoking No alcohol abuse Denies illicit drug use Physical Exam Vital Signs Vital Signs Date Time Temp Pulse Resp B/P (MAP) Pulse Ox O2 Delivery O2 Flow Rate FiO2 05/13/18 08:00 98.0 78 17 118/56 (76) 98 05/13/18 04:00 97.3 76 20 104/50 (68) 98 05/13/18 03:47 77 05/13/18 01:17 97.7 82 20 120/58 (78) 100 05/12/18 23:13 83 16 119/60 (79) 97 Room Air 05/12/18 19:26 88 20 118/57 (77) 99 Room Air 05/12/18 16:53 89 24 105/57 (73) 100 Room Air 05/12/18 15:49 98 Room Air 05/12/18 15:26 97.8 99 20 131/63 (85) 97 Physical Exam GENERAL: Patient is a well-nourished, well-developed male, awake and alert, not in respiratory distress. SKIN: Cool and dry. No generalized rash, no ecchymoses and no evidence of embolic lesions. HEAD: Atraumatic. Normocephalic. No temporal wasting, or tenderness. EYES: [place] conjunctiva. No petechia or hemorrhage. Pupils equal, round and reactive to light. Extraocular movements full and intact. No scleral icterus. No injection or drainage. EARS, NOSE AND THROAT: Nose without bleeding or purulent nasal discharge. No sinus tenderness. Mucous membranes pink and moist. No oral lesions noted. No exudate. No oral thrush. NECK: Trachea midline. Supple and not tender, no meningeal signs CARDIOVASCULAR: Regular rate and rhythm. No murmurs, rubs or gallops heard RESPIRATORY: Clear to auscultation. Breath sounds equal bilaterally. No rales , wheezing or rhonchi ABDOMEN: Soft, nondistended, has mild suprapubic tenderness. Bowel sounds present and normoactive. No guarding. No rebound. No organomegaly. : Incontinent of urine, scrotum with some mild swelling and erythema, not indurated EXTREMITIES: No clubbing, cyanosis, or edema. No joint effusion, has good ROM. No calf tenderness. Well perfused and warm. NEUROLOGICAL: Awake and alert. Cranial nerves grossly intact. Motor grossly within normal limits. PSYCHIATRIC: Normal affect, calm and cooperative. LINE: No evidence of infection Laboratory Laboratory Tests Test 05/12/18 16:00 05/12/18 18:02 05/13/18 04:38 White Blood Count 19.3 13.3 Red Blood Count 2.75 2.37 Hemoglobin 8.9 7.6 Hematocrit 26.2 22.1 Mean Corpuscular Volume 95.2 93.3 Mean Corpuscular Hemoglobin 32.4 32.0 Mean Corpuscular Hemoglobin Concent 34.1 34.2 Red Cell Distribution Width 18.5 18.5 Platelet Count 296 225 Mean Platelet Volume 7.4 7.1 Neutrophils (%) (Auto) 77.1 73.7 Lymphocytes (%) (Auto) 14.8 13.1 Monocytes (%) (Auto) 5.6 7.1 Eosinophils (%) (Auto) 1.5 5.3 Basophils (%) (Auto) 1.0 0.8 Neutrophils # (Auto) 14.9 9.8 Lymphocytes # (Auto) 2.9 1.7 Monocytes # (Auto) 1.1 0.9 Eosinophils # (Auto) 0.3 0.7 Basophils # (Auto) 0.2 0.1 CBC Comment DIFF FINAL DIFF FINAL Differential Comment Blood Urea Nitrogen 49 51 Creatinine 4.17 4.44 Random Glucose 113 108 Total Protein 7.4 6.3 Albumin 2.8 2.3 Calcium Level 9.1 8.6 Alkaline Phosphatase 89 73 Aspartate Amino Transf (AST/SGOT) 15 13 Alanine Aminotransferase (ALT/SGPT) 15 12 Total Bilirubin 0.6 0.6 Sodium Level 137 137 Potassium Level 4.5 3.9 Chloride Level 99 102 Carbon Dioxide Level 25.2 23.8 Anion Gap 13 11 Estimat Glomerular Filtration Rate 14 13 Lactic Acid Level 1.4 Urine Color YELLOW Urine Turbidity CLOUDY Urine pH 6.5 Urine Specific [place] 1.020 Urine Protein 300 Urine Glucose (UA) NEG Urine Ketones NEG Urine Occult Blood LARGE Urine Nitrite NEG Urine Bilirubin NEG Urine Urobilinogen LESS THAN 2.0 Urine Leukocyte Esterase LARGE Urine RBC 90 Urine WBC Urine WBC Clumps MANY Urine Squamous Epithelial Cells 3 Urine Bacteria MANY Microscopic Urinalysis Comment CATH-CULTURE IND Date/Time Source Procedure Growth Status 05/12/18 16:05 Blood Peripheral Aerobic Blood Culture - Preliminary NO GROWTH IN 1 DAY Resulted 05/12/18 16:05 Blood Peripheral Anaerobic Blood Culture - Preliminary NO GROWTH IN 1 DAY Resulted 05/12/18 18:02 Urine Catheterized Urine Urine Culture Pending Received Result Diagram: 05/13/18 0438 05/13/18 0438 Imaging RADIOLOGY STUDIES/FILMS REVIEWED Abdomen/Pelvis CT 05/12/18 1546 Signed Impressions: Review of bone windows reveals degenerative changes.. CONCLUSION: 1. Multiple small gallstones 2. Urinary sphincter were decompressed bladder 3. No renal stone 4. Large hiatal hernia stable in the interval. 5. Renal stents have been removed. There is no hydronephrosis. Assessment and Plan Assessment and Plan IMPRESSION UTI Scrotal cellulitis Previous episode of urinary retention ESRD on HD Hx prostate CA and previous prostatectomy RECOMMENDATION Check bladder scan, ?intermittent retention Diflucan Zosyn Follow C/S Will consult Dr Jha - patient's nephrology for his HD Monitor progress I will follow along with you Thank you for this consultation Discussed Condition With Explained plan to the patient Gerda Arechiga MD May 13, 2018 11:48
--- NOTE | 2018-05-13 12:35 | HHI.PR ---
Subjective Remarks Patient reported no complaint When I asked him if he is urinating well he informed me that he has diaper Objective Vitals Vital Signs Date Time Temp Pulse Resp B/P (MAP) Pulse Ox O2 Delivery O2 Flow Rate FiO2 05/13/18 08:00 98.0 78 17 118/56 (76) 98 05/13/18 04:00 97.3 76 20 104/50 (68) 98 05/13/18 03:47 77 05/13/18 01:17 97.7 82 20 120/58 (78) 100 05/12/18 23:13 83 16 119/60 (79) 97 Room Air 05/12/18 19:26 88 20 118/57 (77) 99 Room Air 05/12/18 16:53 89 24 105/57 (73) 100 Room Air 05/12/18 15:49 98 Room Air 05/12/18 15:26 97.8 99 20 131/63 (85) 97 I/O 05/12/18 05/12/18 05/12/18 05/13/18 05/13/18 05/13/18 07:00 15:00 23:00 07:00 15:00 23:00 Intake Total 1300 ml 60 ml Output Total 300 ml Balance 1300 ml -240 ml Intake Oral 60 ml IV Total 1300 ml Output Urine Total 300 ml # Voids 1 # Bowel Movements 0 Result Diagram: 05/13/1843705/13/18437 Objective Remarks GENERAL: This is a well-nourished, well-developed patient, in no apparent distress. CARDIOVASCULAR: RRR, no gallops, or rubs. RESPIRATORY: Fair air entry bilaterally. No W, R, or R GASTROINTESTINAL: Abdomen soft, non-tender, nondistended. Positive bowel sounds MUSCULOSKELETAL: Extremities without clubbing, cyanosis, or edema. Pedal pulses appreciated NEUROLOGICAL: Awake and alert. Moves all extremity. Normal speech.no focal neurological deficit A/P Problem List: (1) Sepsis ICD Code: A41.9 - Sepsis, unspecified organism Status: Acute (2) Cellulitis of scrotum ICD Code: N49.2 - Inflammatory disorders of scrotum Status: Acute (3) ESRD on hemodialysis ICD Code: N18.6 - End stage renal disease; Z99.2 - Dependence on renal dialysis Status: Chronic (4) Status post cystoscopy ICD Code: Z98.89 - Other specified postprocedural states Status: Resolved (5) Hypertension ICD Code: I10 - Essential (primary) hypertension Status: Chronic (6) HTN (hypertension) ICD Code: I10 - Essential (primary) hypertension Status: Acute Assessment and Plan 82 years old male admitted with Sepsis with leukocytosis tachycardia and hypertension Urinary retention in the past Scrotal cellulitis ESRD patient on hemodialysis History prostate cancer status post mastectomy DVT prophylaxis with SCD and heparin Plan: Continue IV antibiotics per ID, Zosyn and Diflucan Bladder scan ordered today Appreciate ID consultation, appreciate their input Consult nephrology for hemodialysis Consult urology for urinary retention, appreciate their input consultation reviewed Salomon Jackson MD May 13, 2018 12:35
--- NOTE | 2018-05-13 12:43 | MB ---
cc: Philipp Scales DO DATE: 05/13/2018 HISTORY OF PRESENT ILLNESS: Mr. Bartlett is a pleasant 82-year-old male who presented with evidence of scrotal cellulitis. The patient is under the care of Dr. Marie. Back in 2000, he underwent a prostatectomy by Dr. Gil and then in 2006 underwent placement of his urinary sphincter. He recently had bilateral ureteral stents that were placed by Dr. Marie as the patient states he had an infection at that time and needed the help with drainage. The stents were then removed approximately 3 weeks ago and then he had some difficulty with urination. A Michaels catheter was then inserted in the emergency room and his sphincter had been open at that time. He does state that there was some difficulty placing the catheter by the nursing staff. Once the catheter was in, it remained in for 2 weeks, then was recently removed the other day in Dr. Marie's office. He has noted some scrotal swelling and discomfort and on exam, it appears that he may have a right-sided orchitis. He denies fever or chills, but his white count was 19,000 on admission. He also has a history of end-stage renal diseases and is on hemodialysis. PAST MEDICAL HISTORY: His medical problems include hypertension, prostate cancer, sleep apnea, anemia and end-stage renal disease, on hemodialysis. PAST SURGICAL HISTORY: Prostatectomy in 2000 and in 2006, he underwent artificial urinary sphincter placement. Please note that he also had radiation therapy post-prostatectomy. He had a hernia repair in the past, a left AV fistula, recent ureteral stents, cataract surgery, uvulectomy, and tonsillectomy. MEDICATIONS: Please refer to the chart. ALLERGIES: INCLUDE SULFA. FAMILY HISTORY: Denies. SOCIAL HISTORY: Denies smoking, drinking or using drugs. REVIEW OF SYSTEMS: Notes scrotal tenderness with erythema. Denies gait disturbances or bleeding disorders. Denies chest pain or shortness of breath. Denies neurologic problems or psychiatric problems. Remaining review of systems were reviewed and were negative. PHYSICAL EXAMINATION: VITAL SIGNS: Temperature is 98, heart rate 78, respiratory rate 17, blood pressure 118/56, 98% on room air. GENERAL: He is a well-developed, well-nourished, 82-year-old male in no acute distress. HEENT: Normocephalic, atraumatic. Pupils equal, round, regular and reactive to light. Extraocular movements intact. NECK: Supple. HEART: Regular rate and rhythm. LUNGS: Clear. ABDOMEN: Soft, nontender and nondistended. GENITOURINARY: Normal phallus. There is some scrotal cellulitis noted with what appears to be orchitis of the right hemiscrotum. The left testicle appears less indurated. EXTREMITIES: Show no evidence of cyanosis, clubbing or edema. NEUROLOGIC: Cranial nerves 2-12 are intact. LABORATORY DATA: White count 13.3, hemoglobin 7.6, hematocrit 22.1, platelet count of 225. Sodium 137, potassium 3.9, chloride 102, CO2 of 23.8, BUN of 51, creatinine 4.44, glucose of 108. Urinalysis shows many white cell clumps, RBCs 90, large leukocyte esterase, nitrite negative. IMAGING STUDIES: Shows CT scan of the abdomen and pelvis on admission. Multiple gallstones. Urinary sphincter with a decompressed bladder. No hydronephrosis. ASSESSMENT AND PLAN: This is an 82-year-old male with presentation of scrotal cellulitis/orchitis with a urinary sphincter. Recommend IV antibiotics, check urine culture and blood cultures. We will contact Dr. Marie to the presence of his patient. We will obtain a scrotal ultrasound. Thank you for the consult and allowing me to participate in the care of this patient. DO NANY Magana/RESHMA , 12:07 PM , 12:42 PM
[2018-05-13] MEDS: PIPERACIL-TAZO 2.25 GM PREMIX 50 ML IV SCH ×2 (12:54→20:20)
[2018-05-13] MEDS: FLUCONAZOLE 100 MG TAB PO SCH (12:54)
--- NOTE | 2018-05-13 15:35 | HHI.PR ---
Subjective Patient symptoms today This is a courtesy visit note. Pt was seen by Dr Scales as a urology consult already. Pt was sent to ER from our office Dr Cynthia arredondo due to scrotal / AUS infection due to a recent placement of rodriguez cath for UTI and retention Currently pt is feeling better. VS and Labs are improving. No significant findings on CT. No hydro post recent stents removal Objective Vital Signs Vital Signs Date Time Temp Pulse Resp B/P (MAP) Pulse Ox O2 Delivery O2 Flow Rate FiO2 05/13/18 12:00 97.8 71 18 118/54 (75) 98 05/13/18 08:00 98.0 78 17 118/56 (76) 98 05/13/18 04:00 97.3 76 20 104/50 (68) 98 05/13/18 03:47 77 05/13/18 01:17 97.7 82 20 120/58 (78) 100 05/12/18 23:13 83 16 119/60 (79) 97 Room Air 05/12/18 19:26 88 20 118/57 (77) 99 Room Air 05/12/18 16:53 89 24 105/57 (73) 100 Room Air 05/12/18 15:49 98 Room Air Intake & Output 05/13/18 05/13/18 07:00 19:00 Intake Total 60 ml Output Total 300 ml Balance -240 ml Intake Oral 60 ml Output Urine Total 300 ml # Voids 1 # Bowel Movements 0 Result Diagram: 05/13/18 0438 05/13/18 0438 Imaging Last 24 hours Impressions Abdomen/Pelvis CT 05/12/18 1546 Signed Impressions: Review of bone windows reveals degenerative changes.. CONCLUSION: 1. Multiple small gallstones 2. Urinary sphincter were decompressed bladder 3. No renal stone 4. Large hiatal hernia stable in the interval. 5. Renal stents have been removed. There is no hydronephrosis. Medications and IVs Current Medications Medications (Trade) Dose Ordered Sig/Rahel Route Start Time Stop Time Status Last Admin (NS Flush) 2 ml UNSCH PRN IV FLUSH 05/12/18 20:30 (NS Flush) 2 ml BID IV FLUSH 05/12/18 21:00 05/13/18 09:58 (Tylenol) 650 mg Q4H PRN PO 05/12/18 20:30 (Lovenox Inj) 30 mg Q24H SQ 05/12/18 21:00 05/12/18 21:47 (Narcan Inj) 0.4 mg UNSCH PRN IV PUSH 05/12/18 20:30 (Elizabeth-Colace) 1 tab BID PO 05/12/18 21:00 05/13/18 09:56 (Milk Of Magnesia Liq) 30 ml Q12H PRN PO 05/12/18 20:30 (Senokot) 17.2 mg Q12H PRN PO 05/12/18 20:30 (Dulcolax Supp) 10 mg DAILY PRN RECTAL 05/12/18 20:30 (Lactulose Liq) 30 ml DAILY PRN PO 05/12/18 20:30 (Norvasc) 5 mg DAILY PO 05/13/18 09:00 (Aspirin Chew) 81 mg DAILY CHEW 05/13/18 09:00 05/13/18 09:56 (Prinivil) 20 mg DAILY PO 05/13/18 09:00 (Xalatan 0.005% Opth Soln) 1 drop HS EACH EYE 05/12/18 21:00 (Sodium Bicarbonate) 325 mg DAILY PO 05/13/18 09:00 05/13/18 09:56 (Pepcid) 10 mg BID PO 05/13/18 09:00 05/13/18 09:58 (Alphagan 0.2% Opth Soln) 1 drop Q12HR EACH EYE 05/12/18 22:00 05/13/18 09:59 (Timoptic 0.5% Opth Soln) 1 drop Q12HR EACH EYE 05/12/18 22:00 05/13/18 09:59 (Pill Splitter) 1 ea UNSCH PRN OTHER 05/12/18 21:30 (Diflucan) 100 mg DAILY PO 05/13/18 12:00 05/13/18 12:54 Piperacillin Sod/ Tazobactam Sod 50 ml @ 100 mls/hr Q8H IV 05/13/18 13:00 05/13/18 12:54 Assessment and Plan Assessment and Plan 82y.o pt of Dr Marie. Sent to ER yesterday due to possibly infected AUS vs orchitis / scrotal cellulitis Appreciated Dr Scales seeing pt as a urology consult Continue care as per primary team and ID Scrotal US as recommended Pt will need to do cystoscopy with Dr Marie as outpt once infection improves Tigre Bunch May 13, 2018 15:35
[2018-05-13] MEDS ORDERED: SODIUM CHLOR 0.9% 1000 ML INJ 1,000 ML IV PRN (16:19)
[2018-05-13] MEDS ORDERED: SODIUM CHLOR 0.9% 1000 ML INJ 1,000 ML OTHER PRN (16:19)
--- NOTE | 2018-05-13 16:19 | PD.CONS ---
HPI Consult Requested By Reason for Consult End-stage renal disease Primary Care Physician Jeff Jarvis MD History of Present Illness This patient is an 82-year-old male known to me as an outpatient. He has a history of end-stage renal disease on maintenance hemodialysis Thursday and Thursday. He also has a history of obstructive uropathy with previous bilateral ureteral stents. According to the history obtained the patient developed urinary tract infection and the ureteral stents which are usually changed intermittently were removed by urology in view of the infection. According to the patient he subsequently developed obstructive symptoms and was seen in the emergency room where a Michaels catheter was placed I believe on May 06. Subsequently noted swelling of his scrotum and presents to the emergency room. Subsequently has been diagnosed as having cellulitis of the scrotum. Presently denying any shortness of breath at time of consultation. Review of Systems Constitutional: COMPLAINS OF: Fatigue, DENIES: Diaphoretic episodes, Fever, Weight gain, Weight loss, Chills, Dizziness, Change in appetite, Night Sweats Cardiovascular: DENIES: Chest pain, Palpitations, Syncope, Dyspnea on Exertion , PND, Lower Extremity Edema, Orthopnea, Claudication Gastrointestinal: DENIES: Abdominal pain, Black stools, Bloody stools, Constipation, Diarrhea, Nausea, Vomiting, Difficulty Swallowing, Anorexia Genitourinary: COMPLAINS OF: Testicular Swelling, DENIES: Urinary incontinence , Testicular Pain Musculoskeletal: COMPLAINS OF: Joint pain Past Family Social History Allergies: Coded Allergies: Sulfa (Sulfonamide Antibiotics) (Verified Allergy, Severe, Nausea/Vomiting , 05/12/18) *MDRO Multi-Drug Resistant Organism (Verified Adverse Reaction, Unknown, ) 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 History of bladder outlet obstruction recently. End-stage renal disease. On maintenance hemodialysis. Anemia of renal disease. Secondary hyperparathyroidism of renal disease. Sleep apnea according to records. Past Surgical History Creation of an AV dialysis fistula left arm. Reported Medications Reported Meds & Active Scripts Active Doxycycline Hyclate 100 Mg Cap 100 Mg PO BID Walker with Front Wheels (Device) 1 Mis Mis Ea .XX DIRECTED Reported Combigan Opth Drops (Brimonidine-Timolol Opth Drops) 0.2-0.5% Soln 1 Drop EACH EYE Q12HR Aspirin 81 Low Dose (Aspirin) 81 Mg Chew 81 Mg CHEW DAILY Vitamin D2 (Ergocalciferol) 2,000 Unit Tab 4,000 Units PO DAILY Ranitidine (Ranitidine HCl) 150 Mg Tab 150 Mg PO DAILY Benazepril (Benazepril HCl) 20 Mg Tab 20 Mg PO DAILY Sodium Bicarbonate 325 Mg Tab 325 Mg PO DAILY Xalatan Opth Drops (Latanoprost) 0.005% Drops 1 Drop EACH EYE HS Norvasc (Amlodipine Besylate) 5 Mg Tab 5 Mg PO DAILY Active Ordered Medications Current Medications Piperacillin Sod/ Tazobactam Sod 50 ml @ 100 mls/hr ONCE ONCE IV Last administered on 05/12/18at 18:00; Start 05/12/18 at 16:00; Stop 05/12/18 at 16:29 ; Status DC Vancomycin HCl 1000 mg/Sodium Chloride 250 ml @ 250 mls/hr ONCE ONCE IV Last administered on 05/12/18at 16:51; Start 05/12/18 at 16:00; Stop 05/12/18 at 16:59 ; Status DC Sodium Chloride 1,000 ml @ 1,000 mls/hr Q1H IV Last administered on 05/12/18at 18:04; Start 05/12/18 at 17:09; Stop 05/12/18 at 18:08; Status DC Sodium Chloride (NS Flush) 2 ml UNSCH PRN IV FLUSH FLUSH AFTER USING IV ACCESS ; Start 05/12/18 at 20:30 Sodium Chloride (NS Flush) 2 ml BID IV FLUSH Last administered on 05/13/18at 09: 58; Start 05/12/18 at 21:00 Acetaminophen (Tylenol) 650 mg Q4H PRN PO TEMP > 100.4; Start 05/12/18 at 20:30 Enoxaparin Sodium (Lovenox Inj) 30 mg Q24H SQ Last administered on 05/12/18at 21 :47; Start 05/12/18 at 21:00 Naloxone HCl (Narcan Inj) 0.4 mg UNSCH PRN IV PUSH SEE LABEL COMMENTS; Start at 20:30 Senna/Docusate Sodium (Elizabeth-Colace) 1 tab BID PO Last administered on at 09:56; Start 05/12/18 at 21:00 Magnesium Hydroxide (Milk Of Magnesia Liq) 30 ml Q12H PRN PO Mild constipation ; Start 05/12/18 at 20:30 Sennosides (Senokot) 17.2 mg Q12H PRN PO Moderate constipation; Start 05/12/18 at 20:30 Bisacodyl (Dulcolax Supp) 10 mg DAILY PRN RECTAL SEVERE CONSITIPATION; Start at 20:30 Lactulose (Lactulose Liq) 30 ml DAILY PRN PO SEVERE CONSITIPATION; Start at 20:30 Amlodipine Besylate (Norvasc) 5 mg DAILY PO ; Start 05/13/18 at 09:00 Aspirin (Aspirin Chew) 81 mg DAILY CHEW Last administered on 05/13/18at 09:56; Start 05/13/18 at 09:00 Lisinopril (Prinivil) 20 mg DAILY PO ; Start 05/13/18 at 09:00 Latanoprost (Xalatan 0.005% Opth Soln) 1 drop HS EACH EYE ; Start 05/12/18 at 21 :00 Sodium Bicarbonate (Sodium Bicarbonate) 325 mg DAILY PO Last administered on at 09:56; Start 05/13/18 at 09:00 Non-Formulary Medication 1 drop Q12HR EACH EYE ; Start 05/12/18 at 21:00; Status UNV Famotidine (Pepcid) 10 mg BID PO Last administered on 05/13/18at 09:58; Start at 09:00 Brimonidine Tartrate (Alphagan 0.2% Opth Soln) 1 drop Q12HR EACH EYE Last administered on 05/13/18at 09:59; Start 05/12/18 at 22:00 Timolol Maleate (Timoptic 0.5% Opth Soln) 1 drop Q12HR EACH EYE Last administered on 05/13/18at 09:59; Start 05/12/18 at 22:00 Miscellaneous (Pill Splitter) 1 ea UNSCH PRN OTHER SEE LABEL COMMENTS; Start at 21:30 Fluconazole (Diflucan) 100 mg DAILY PO Last administered on 05/13/18at 12:54; Start 05/13/18 at 12:00 Piperacillin Sod/ Tazobactam Sod 50 ml @ 100 mls/hr Q8H IV Last administered on 05/13/18at 12:54; Start 05/13/18 at 13:00 Family History Noncontributory to current complaint. Social History No current history of alcohol tobacco abuse. Physical Exam Vital Signs Vital Signs Date Time Temp Pulse Resp B/P (MAP) Pulse Ox O2 Delivery O2 Flow Rate FiO2 05/13/18 12:00 97.8 71 18 118/54 (75) 98 05/13/18 08:00 98.0 78 17 118/56 (76) 98 05/13/18 04:00 97.3 76 20 104/50 (68) 98 05/13/18 03:47 77 05/13/18 01:17 97.7 82 20 120/58 (78) 100 05/12/18 23:13 83 16 119/60 (79) 97 Room Air 05/12/18 19:26 88 20 118/57 (77) 99 Room Air 05/12/18 16:53 89 24 105/57 (73) 100 Room Air Physical Exam GENERAL: Very pleasant elderly male lying in bed not in respiratory distress. SKIN: Warm and dry. HEAD: Normocephalic. EYES: No scleral icterus. No injection or drainage. NECK: Supple, trachea midline. No JVD or lymphadenopathy. CARDIOVASCULAR: Regular rate and rhythm without murmurs, gallops, or rubs. RESPIRATORY: Breath sounds equal bilaterally. No accessory muscle use. GASTROINTESTINAL: Abdomen soft, non-tender, nondistended. MUSCULOSKELETAL: No cyanosis, no lower extremity edema. There is however edema and swelling of the scrotum. Mild erythema. Laboratory Laboratory Tests Test 05/12/18 18:02 05/13/18 04:38 Urine Color YELLOW Urine Turbidity CLOUDY Urine pH 6.5 Urine Specific [place] 1.020 Urine Protein 300 Urine Glucose (UA) NEG Urine Ketones NEG Urine Occult Blood LARGE Urine Nitrite NEG Urine Bilirubin NEG Urine Urobilinogen LESS THAN 2.0 Urine Leukocyte Esterase LARGE Urine RBC 90 Urine WBC Urine WBC Clumps MANY Urine Squamous Epithelial Cells 3 Urine Bacteria MANY Microscopic Urinalysis Comment CATH-CULTURE IND White Blood Count 13.3 Red Blood Count 2.37 Hemoglobin 7.6 Hematocrit 22.1 Mean Corpuscular Volume 93.3 Mean Corpuscular Hemoglobin 32.0 Mean Corpuscular Hemoglobin Concent 34.2 Red Cell Distribution Width 18.5 Platelet Count 225 Mean Platelet Volume 7.1 Neutrophils (%) (Auto) 73.7 Lymphocytes (%) (Auto) 13.1 Monocytes (%) (Auto) 7.1 Eosinophils (%) (Auto) 5.3 Basophils (%) (Auto) 0.8 Neutrophils # (Auto) 9.8 Lymphocytes # (Auto) 1.7 Monocytes # (Auto) 0.9 Eosinophils # (Auto) 0.7 Basophils # (Auto) 0.1 CBC Comment DIFF FINAL Differential Comment Blood Urea Nitrogen 51 Creatinine 4.44 Random Glucose 108 Total Protein 6.3 Albumin 2.3 Calcium Level 8.6 Alkaline Phosphatase 73 Aspartate Amino Transf (AST/SGOT) 13 Alanine Aminotransferase (ALT/SGPT) 12 Total Bilirubin 0.6 Sodium Level 137 Potassium Level 3.9 Chloride Level 102 Carbon Dioxide Level 23.8 Anion Gap 11 Estimat Glomerular Filtration Rate 13 Date/Time Source Procedure Growth Status 05/12/18 16:05 Blood Peripheral Aerobic Blood Culture - Preliminary NO GROWTH IN 1 DAY Resulted 05/12/18 16:05 Blood Peripheral Anaerobic Blood Culture - Preliminary NO GROWTH IN 1 DAY Resulted 05/12/18 18:02 Urine Catheterized Urine Urine Culture - Preliminary IMMATURE GROWTH - REINCUBATE Resulted Result Diagram: 05/13/18 0438 05/13/18 0438 Imaging Last 48 hours Impressions Abdomen/Pelvis CT 05/12/18 1546 Signed Impressions: Review of bone windows reveals degenerative changes.. CONCLUSION: 1. Multiple small gallstones 2. Urinary sphincter were decompressed bladder 3. No renal stone 4. Large hiatal hernia stable in the interval. 5. Renal stents have been removed. There is no hydronephrosis. Assessment and Plan Problem List: (1) ESRD on hemodialysis ICD Codes: N18.6 - End stage renal disease; Z99.2 - Dependence on renal dialysis Status: Chronic Plan: It is somewhat late in the day and the patient appears to be without evidence of significant fluid retention and his labs are relatively stable. We will plan for hemodialysis tomorrow and subsequently resume his usual outpatient schedule Thursday and Thursday this coming Thursday. Patient is agreeable. Medication should be adjusted for the patient's end-stage renal disease when indicated. Avoid gadolinium. (2) Benign hypertension ICD Codes: I10 - Essential (primary) hypertension Status: Chronic (3) Anemia of renal disease ICD Codes: D63.1 - Anemia in chronic kidney disease Plan: Continue Epogen for anemia of renal disease. Check iron stores. Piyush Jha MD May 13, 2018 16:19
[2018-05-13] MEDS ORDERED: ACETAMINOPHEN 325 MG TAB PO PRN (16:30)
[2018-05-13] MEDS ORDERED: ALBUMIN 25% INJ 100 ML IV PRN (16:30)
[2018-05-13] MEDS ORDERED: SODIUM CHLORIDE 0.9% FLUSH 10 ML FLUSH IV FLUSH PRN (16:30)
[2018-05-13] MEDS ORDERED: HEPARIN SODIUM - IV 10,000 UNITS/10 ML VIAL IV FLUSH PRN (16:30)
[2018-05-13] MEDS ORDERED: GELATIN 12 MM/7 MM FOAM TOP PRN (16:30)
[2018-05-13] MEDS ORDERED: ONDANSETRON HCL 4 MG/2 ML VIAL IV PUSH PRN (16:30)
[2018-05-13] MEDS ORDERED: NITROGLYCERIN 0.4 MG SL 25 TABS/BTL SL PRN (16:30)
[2018-05-13] MEDS ORDERED: cloNIDine HCL 0.1 MG TAB PO PRN (16:30)
[2018-05-13] MEDS ORDERED: diphenhydrAMINE HCL 25 MG CAP PO PRN (16:30)
[2018-05-13] MEDS: LATANOPROST 0.005% OPHT SOLN 2.5 ML BTL EACH EYE SCH (20:20)
[2018-05-13] MEDS: ENOXAPARIN SODIUM 30 MG/0.3 ML SYRINGE SQ SCH (20:21)
--- NOTE | 2018-05-13 22:55 | RADRPT ---
EXAM DATE: 05/13/2018 10:49 PM EDT AGE/SEX: 82 years / Male INDICATIONS: Testicular pain and swelling. CLINICAL DATA: This is the patient's initial encounter. Patient reports that signs and symptoms have been present for 4 - 6 days and indicates a pain score of 4/10. MEDICAL/SURGICAL HISTORY: Gastroesophageal reflux disease. Anemia. Hypertension. Anticoagulant therapy. Sleep apnea. Inguinal hernia. Hiatal hernia. Prostate cancer. End stage renal failure.Left AV fistula. Methicillin-resistant staph aureus Tonsillectomy. Prostatectomy. Inguinal hernia repai r. Artificial urethral sphincter. Urinary stents. COMPARISON: No prior exams available for comparison. MEASUREMENTS (cm x cm x cm): Right Testicle:__2.6 x 0.7 x 2.5 cm Left Testicle:__2.1 x 2.6 x 1.2 cm FINDINGS: Right Testicle: Homogeneous echotexture without intra or extratesticular mass. Blood flow is symmet ebony and within normal limits. No hydrocele or varicocele. Small epididymal cyst measures 6 x 4 x 9 m m. Left Testicle: Homogeneous echotexture without intra or extratesticular mass. Blood flow is symmetr ic and within normal limits. No hydrocele or varicocele. Small epididymal cyst measures 7 x 5 x 9 mm . Scrotum: There is increased vascularity along the posterior right scrotum. Diffuse soft tissue swell ing. Penile pump noted. CONCLUSION: 1. Diffuse scrotal soft tissue swelling. 2. Increased vascularity and soft tissue prominence posterior to the right testicle. 3. Small bilateral epididymal cyst. Electronically signed by: Asif Esparza MD 05/13/2018 10:54 PM EDT
[2018-05-14] VITALS (8 sets, daily range): BP systolic 98–133; BP diastolic 51–62; PULSE 68–92; RESP 17–18; TEMP 98–98.7; O2SAT 96–99
[2018-05-14] MEDS: PIPERACIL-TAZO 2.25 GM PREMIX 50 ML IV SCH ×3 (05:04→19:24)
--- NOTE | 2018-05-14 07:44 | HHI.PR ---
Subjective Patient symptoms today Pt seen and examined. Feels ok. Scrotal US with soft tissue swelling posterior to right testicle. Suspect right sided orchitis. Objective Vital Signs Vital Signs Date Time Temp Pulse Resp B/P (MAP) Pulse Ox O2 Delivery O2 Flow Rate FiO2 05/14/18 04:53 98.1 78 18 128/59 (82) 98 05/14/18 04:13 78 05/14/18 00:21 77 05/14/18 00:10 98.2 77 17 115/55 (75) 97 05/13/18 20:21 98.0 80 18 122/56 (78) 99 05/13/18 20:07 77 05/13/18 16:00 98.0 78 18 115/78 (90) 99 05/13/18 12:00 97.8 71 18 118/54 (75) 98 05/13/18 08:00 98.0 78 17 118/56 (76) 98 Intake & Output 05/14/18 05/14/18 07:00 19:00 Intake Total 680 ml Balance 680 ml Intake Oral 580 ml IV Total 100 ml # Voids 1 Result Diagram: 05/13/1843705/13/18437 Objective Remarks Abd:soft,nt,nd Scrotum: cellulitis with right sided induration noted Medications and IVs Current Medications Medications (Trade) Dose Ordered Sig/Rahel Route Start Time Stop Time Status Last Admin (NS Flush) 2 ml UNSCH PRN IV FLUSH 05/12/18 20:30 (NS Flush) 2 ml BID IV FLUSH 05/12/18 21:00 05/13/18 20:21 (Tylenol) 650 mg Q4H PRN PO 05/12/18 20:30 (Lovenox Inj) 30 mg Q24H SQ 05/12/18 21:00 05/13/18 20:21 (Narcan Inj) 0.4 mg UNSCH PRN IV PUSH 05/12/18 20:30 (Elizabeth-Colace) 1 tab BID PO 05/12/18 21:00 05/13/18 20:20 (Milk Of Magnesia Liq) 30 ml Q12H PRN PO 05/12/18 20:30 (Senokot) 17.2 mg Q12H PRN PO 05/12/18 20:30 (Dulcolax Supp) 10 mg DAILY PRN RECTAL 05/12/18 20:30 (Lactulose Liq) 30 ml DAILY PRN PO 05/12/18 20:30 (Norvasc) 5 mg DAILY PO 05/13/18 09:00 (Aspirin Chew) 81 mg DAILY CHEW 05/13/18 09:00 05/13/18 09:56 (Prinivil) 20 mg DAILY PO 05/13/18 09:00 (Xalatan 0.005% Opth Soln) 1 drop HS EACH EYE 05/12/18 21:00 05/13/18 20:20 (Sodium Bicarbonate) 325 mg DAILY PO 05/13/18 09:00 05/13/18 09:56 (Pepcid) 10 mg BID PO 05/13/18 09:00 05/13/18 20:19 (Alphagan 0.2% Opth Soln) 1 drop Q12HR EACH EYE 05/12/18 22:00 05/13/18 20:20 (Timoptic 0.5% Opth Soln) 1 drop Q12HR EACH EYE 05/12/18 22:00 05/13/18 20:20 (Pill Splitter) 1 ea UNSCH PRN OTHER 05/12/18 21:30 (Diflucan) 100 mg DAILY PO 05/13/18 12:00 05/13/18 12:54 Piperacillin Sod/ Tazobactam Sod 50 ml @ 100 mls/hr Q8H IV 05/13/18 13:00 05/14/18 05:04 Sodium Chloride 1,000 ml @ 0 mls/hr Q0M PRN OTHER 05/13/18 16:19 (Heparin Inj) 8,000 units UNSCH PRN IV FLUSH 05/13/18 16:30 Sodium Chloride 1,000 ml @ 200 mls/hr Q5H PRN IV 05/13/18 16:19 Sodium Chloride 1,000 ml @ 0 mls/hr Q0M PRN OTHER 05/13/18 16:19 Albumin Human 100 ml @ 60 mls/hr UNSCH PRN IV 05/13/18 16:30 (NS Flush) 5 ml UNSCH PRN IV FLUSH 05/13/18 16:30 (Zofran Inj) 4 mg UNSCH PRN IV PUSH 05/13/18 16:30 (Tylenol) 650 mg UNSCH PRN PO 05/13/18 16:30 (Benadryl) 25 mg UNSCH PRN PO 05/13/18 16:30 (Nitrostat Sl) 0.4 mg UNSCH PRN SL 05/13/18 16:30 (Catapres) 0.1 mg UNSCH PRN PO 05/13/18 16:30 (Epogen Inj) 8,000 units UNSCH PRN IV PUSH 05/13/18 16:30 (Gelfoam 12 Mm/7 Mm Top) 1 foam UNSCH PRN TOP 05/13/18 16:30 Assessment and Plan Assessment and Plan 82y.o pt of Dr Marie. Sent to ER yesterday due to possibly infected AUS vs orchitis / scrotal cellulitis Appreciated Dr Scales seeing pt as a urology consult Continue care as per primary team and ID Scrotal US as recommended Pt will need to do cystoscopy with Dr Marie as outpt once infection improves 05/14/18 82 y.o male with possible urethral erosion with right sided orchitis Continue abx therapy for now To f/u with Dr. Marie as outpt. Philipp Scales DO May 14, 2018 07:44
[2018-05-14] MEDS: TIMOLOL MALEATE 0.5% OPHT SOLN 5 ML BTL EACH EYE SCH ×2 (08:03→19:25)
[2018-05-14] MEDS: BRIMONIDINE TARTRATE 0.2% OPHT SOLN 5 ML BTL EACH EYE SCH ×2 (08:03→19:25)
[2018-05-14] MEDS: LISINOPRIL 20 MG TAB PO SCH (08:04)
[2018-05-14] MEDS: amLODIPine BESYLATE 5 MG TAB PO SCH (08:04)
[2018-05-14] MEDS: FAMOTIDINE 20 MG TAB PO SCH ×2 (08:05→19:24)
[2018-05-14] MEDS: DOCUSATE SODIUM 50 MG/SENNA 8.6 MG TAB PO SCH ×2 (08:05→19:24)
[2018-05-14] MEDS: FLUCONAZOLE 100 MG TAB PO SCH (08:05)
[2018-05-14] MEDS: ASPIRIN 81 MG CHEW TAB CHEW SCH (08:05)
[2018-05-14] MEDS: SODIUM BICARBONATE 325 MG TAB PO SCH (08:05)
[2018-05-14] MEDS: SODIUM CHLORIDE 0.9% FLUSH 10 ML FLUSH IV FLUSH SCH ×2 (08:06→19:25)
[2018-05-14 10:01] LABS: HEMATOCRIT 24.7 % (39.0-51.0); HEMOGLOBIN 8.6 GM/DL (13.0-17.0); MEAN CELL VOLUME 93.9 FL (80.0-100.0); MEAN CORPUSCULAR HEMOGLOBIN 32.7 PG (27.0-34.0); MEAN CORPUSCULAR HGB CONC 34.8 % (32.0-36.0); MEAN PLATELET VOLUME 7.5 FL (7.0-11.0); PLATELET COUNT 235 TH/MM3 (150-450); RED BLOOD COUNT 2.63 MIL/MM3 (4.50-5.90); RED CELL DISTRIBUTION WIDTH 18.4 % (11.6-17.2); WHITE BLOOD COUNT 9.8 TH/MM3 (4.0-11.0)
[2018-05-14 11:49] LABS: % SATURATION IRON PROFILE 27.2 % (20-50); IRON (FE) 43 MCG/DL (65-175); TOTAL IRON BINDING CAPACITY 158 MCG/DL (250-450)
--- NOTE | 2018-05-14 14:34 | HHI.IDPN ---
Subjective Subjective Remarks Patient is an 82-year-old male, brought to the hospital per advice by his urologist, for evaluation of scrotal swelling and redness. Patient has had prior problem with UTI. He had required stent placement which according to the patient he had for about 6 months, and it was removed in the last month. Patient has a urinary sphincter placed for urinary incontinence, and when the stent was removed the sphincter was turned off. Last April for he had problem with difficulty urinating, and went to the emergency room. A Michaels catheter was placed at that time and he was told to follow-up with his urologist. There was a urine culture done at that time that grew Dorie albicans. He was discharged from the emergency room then on doxycycline. Patient was seen in the urologists office and was checked out, and the catheter was left in place. He was instructed to come back on the day of admission and he did that in the morning, and the catheter was removed that morning. He went back to the urologist office that same afternoon, and it was noted that his scrotum was swollen and somewhat red. Patient has been having problem with some discomfort in that area but has not really looked at it. He has not had any fever chills or sweats. Denies any nausea and vomiting. Patient is incontinent currently since his sphincter has been turned off. He has ESRD, and has been on hemodialysis since around December, and gets dialyzed Thursday, , and Saturdays. When he came in his white count was elevated at 19,000. He has been afebrile. As I mentioned he is incontinent. CT of the abdomen and pelvis did not show any hydronephrosis. Infectious disease consultation has been requested to evaluate the patient. Notes reviewed No fever BC negative UC mixed jade SCrotum US with diffuse soft tissue swelling Antibiotics Current Medications Medications (Trade) Dose Ordered Sig/Rahel Route Start Time Stop Time Status Last Admin (NS Flush) 2 ml UNSCH PRN IV FLUSH 05/12/18 20:30 (NS Flush) 2 ml BID IV FLUSH 05/12/18 21:00 05/14/18 08:06 (Tylenol) 650 mg Q4H PRN PO 05/12/18 20:30 (Lovenox Inj) 30 mg Q24H SQ 05/12/18 21:00 05/13/18 20:21 (Narcan Inj) 0.4 mg UNSCH PRN IV PUSH 05/12/18 20:30 (Elizabeth-Colace) 1 tab BID PO 05/12/18 21:00 05/14/18 08:05 (Milk Of Magnesia Liq) 30 ml Q12H PRN PO 05/12/18 20:30 (Senokot) 17.2 mg Q12H PRN PO 05/12/18 20:30 (Dulcolax Supp) 10 mg DAILY PRN RECTAL 05/12/18 20:30 (Lactulose Liq) 30 ml DAILY PRN PO 05/12/18 20:30 (Norvasc) 5 mg DAILY PO 05/13/18 09:00 (Aspirin Chew) 81 mg DAILY CHEW 05/13/18 09:00 05/14/18 08:05 (Prinivil) 20 mg DAILY PO 05/13/18 09:00 (Xalatan 0.005% Opth Soln) 1 drop HS EACH EYE 05/12/18 21:00 05/13/18 20:20 (Sodium Bicarbonate) 325 mg DAILY PO 05/13/18 09:00 05/14/18 08:05 (Pepcid) 10 mg BID PO 05/13/18 09:00 05/14/18 08:05 (Alphagan 0.2% Opth Soln) 1 drop Q12HR EACH EYE 05/12/18 22:00 05/14/18 08:03 (Timoptic 0.5% Opth Soln) 1 drop Q12HR EACH EYE 05/12/18 22:00 05/14/18 08:03 (Pill Splitter) 1 ea UNSCH PRN OTHER 05/12/18 21:30 (Diflucan) 100 mg DAILY PO 05/13/18 12:00 05/14/18 08:05 Piperacillin Sod/ Tazobactam Sod 50 ml @ 100 mls/hr Q8H IV 05/13/18 13:00 05/14/18 13:39 Sodium Chloride 1,000 ml @ 0 mls/hr Q0M PRN OTHER 05/13/18 16:19 (Heparin Inj) 8,000 units UNSCH PRN IV FLUSH 05/13/18 16:30 Sodium Chloride 1,000 ml @ 200 mls/hr Q5H PRN IV 05/13/18 16:19 Sodium Chloride 1,000 ml @ 0 mls/hr Q0M PRN OTHER 05/13/18 16:19 Albumin Human 100 ml @ 60 mls/hr UNSCH PRN IV 05/13/18 16:30 (NS Flush) 5 ml UNSCH PRN IV FLUSH 05/13/18 16:30 (Zofran Inj) 4 mg UNSCH PRN IV PUSH 05/13/18 16:30 (Tylenol) 650 mg UNSCH PRN PO 05/13/18 16:30 (Benadryl) 25 mg UNSCH PRN PO 05/13/18 16:30 (Nitrostat Sl) 0.4 mg UNSCH PRN SL 05/13/18 16:30 (Catapres) 0.1 mg UNSCH PRN PO 05/13/18 16:30 (Epogen Inj) 8,000 units UNSCH PRN IV PUSH 05/13/18 16:30 (Gelfoam 12 Mm/7 Mm Top) 1 foam UNSCH PRN TOP 05/13/18 16:30 Lines PIV no evidence of infection Past Medical History Hypertension Prostate cancer Sleep apnea Anemia ESRD, on HD Past Surgical History Hernia Repair LUE AV Fistula Previous placement of ureteral stent, and has been removed Cataract Surgery Prostatectomy Uvulectomy Tonsillectomy Allergies: Coded Allergies: Sulfa (Sulfonamide Antibiotics) (Verified Allergy, Severe, Nausea/Vomiting , 05/12/18) *MDRO Multi-Drug Resistant Organism (Verified Adverse Reaction, Unknown, ) 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 Vital Signs Date Time Temp Pulse Resp B/P (MAP) Pulse Ox O2 Delivery O2 Flow Rate FiO2 05/14/18 12:00 98.7 68 18 98/51 (67) 99 05/14/18 08:00 98.0 74 18 133/62 (85) 98 05/14/18 04:53 98.1 78 18 128/59 (82) 98 05/14/18 04:13 78 05/14/18 00:21 77 05/14/18 00:10 98.2 77 17 115/55 (75) 97 05/13/18 20:21 98.0 80 18 122/56 (78) 99 05/13/18 20:07 77 05/13/18 16:00 98.0 78 18 115/78 (90) 99 05/14/18 05/14/18 05/15/18 15:00 23:00 07:00 Intake Total 50 ml Balance 50 ml IV Total 50 ml # Voids 2 . Laboratory Tests Test 05/12/18 16:00 05/13/18 04:38 05/14/18 07:46 White Blood Count 19.3 TH/MM3 13.3 TH/MM3 9.8 TH/MM3 Red Blood Count 2.75 MIL/MM3 2.37 MIL/MM3 2.63 MIL/MM3 Hemoglobin 8.9 GM/DL 7.6 GM/DL 8.6 GM/DL Hematocrit 26.2 % 22.1 % 24.7 % Mean Corpuscular Volume 95.2 FL 93.3 FL 93.9 FL Mean Corpuscular Hemoglobin 32.4 PG 32.0 PG 32.7 PG Mean Corpuscular Hemoglobin Concent 34.1 % 34.2 % 34.8 % Red Cell Distribution Width 18.5 % 18.5 % 18.4 % Platelet Count 296 TH/MM3 225 TH/MM3 235 TH/MM3 Mean Platelet Volume 7.4 FL 7.1 FL 7.5 FL Neutrophils (%) (Auto) 77.1 % 73.7 % Lymphocytes (%) (Auto) 14.8 % 13.1 % Monocytes (%) (Auto) 5.6 % 7.1 % Eosinophils (%) (Auto) 1.5 % 5.3 % Basophils (%) (Auto) 1.0 % 0.8 % Neutrophils # (Auto) 14.9 TH/MM3 9.8 TH/MM3 Lymphocytes # (Auto) 2.9 TH/MM3 1.7 TH/MM3 Monocytes # (Auto) 1.1 TH/MM3 0.9 TH/MM3 Eosinophils # (Auto) 0.3 TH/MM3 0.7 TH/MM3 Basophils # (Auto) 0.2 TH/MM3 0.1 TH/MM3 CBC Comment DIFF FINAL DIFF FINAL Differential Comment Laboratory Tests Test 05/12/18 16:00 05/13/18 04:38 05/14/18 07:46 Blood Urea Nitrogen 49 MG/DL 51 MG/DL Creatinine 4.17 MG/DL 4.44 MG/DL Random Glucose 113 MG/DL 108 MG/DL Total Protein 7.4 GM/DL 6.3 GM/DL Albumin 2.8 GM/DL 2.3 GM/DL Calcium Level 9.1 MG/DL 8.6 MG/DL Alkaline Phosphatase 89 U/L 73 U/L Aspartate Amino Transf (AST/SGOT) 15 U/L 13 U/L Alanine Aminotransferase (ALT/SGPT) 15 U/L 12 U/L Total Bilirubin 0.6 MG/DL 0.6 MG/DL Sodium Level 137 MEQ/L 137 MEQ/L Potassium Level 4.5 MEQ/L 3.9 MEQ/L Chloride Level 99 MEQ/L 102 MEQ/L Carbon Dioxide Level 25.2 MEQ/L 23.8 MEQ/L Anion Gap 13 MEQ/L 11 MEQ/L Estimat Glomerular Filtration Rate 14 ML/MIN 13 ML/MIN Lactic Acid Level 1.4 mmol/L Iron Level 43 MCG/DL Total Iron Binding Capacity 158 MCG/DL Percent Iron Saturation 27.2 % Microbiology Date/Time Source Procedure Growth Status 05/12/18 16:05 Blood Peripheral Aerobic Blood Culture - Preliminary NO GROWTH IN 2 DAYS Resulted 05/12/18 16:05 Blood Peripheral Anaerobic Blood Culture - Preliminary NO GROWTH IN 2 DAYS Resulted 05/12/18 16:00 Blood Peripheral Aerobic Blood Culture - Preliminary NO GROWTH IN 2 DAYS Resulted 05/12/18 16:00 Blood Peripheral Anaerobic Blood Culture - Preliminary NO GROWTH IN 2 DAYS Resulted 05/12/18 18:02 Urine Catheterized Urine Urine Culture - Final 10-50,000 CFU/ML MIXED GRAM POSITIVE ... Complete Imaging Last Impressions Scrotum Ultrasound 05/13/18 0000 Signed Impressions: CONCLUSION: 1. Diffuse scrotal soft tissue swelling. 2. Increased vascularity and soft tissue prominence posterior to the right hakeem ticle. 3. Small bilateral epididymal cyst. Abdomen/Pelvis CT 05/12/18 1546 Signed Impressions: Review of bone windows reveals degenerative changes.. CONCLUSION: 1. Multiple small gallstones 2. Urinary sphincter were decompressed bladder 3. No renal stone 4. Large hiatal hernia stable in the interval. 5. Renal stents have been removed. There is no hydronephrosis. Physical Exam GENERAL: awake and alert, not in respiratory distress. SKIN: Cool and dry. No generalized rash, no ecchymoses and no evidence of embolic lesions. HEAD: Atraumatic. Normocephalic. No temporal wasting, or tenderness. EYES: Butters conjunctiva. No petechia or hemorrhage. Pupils equal, round and reactive to light. Extraocular movements full and intact. No scleral icterus. No injection or drainage. EARS, NOSE AND THROAT: Nose without bleeding or purulent nasal discharge. No sinus tenderness. Mucous membranes pink and moist. No oral lesions noted. NECK: Trachea midline. Supple and not tender, no meningeal signs CARDIOVASCULAR: Regular rate and rhythm. No murmurs, rubs or gallops heard RESPIRATORY: Clear to auscultation. Breath sounds equal bilaterally. No rales , wheezing or rhonchi ABDOMEN: Soft, nondistended, has mild suprapubic tenderness. Bowel sounds present and normoactive. No guarding. No rebound. No organomegaly. : Incontinent of urine, scrotum with some mild swelling and erythema, not indurated EXTREMITIES: No clubbing, cyanosis, or edema. No joint effusion, has good ROM. No calf tenderness. Well perfused and warm. NEUROLOGICAL: Non-focal PSYCHIATRIC: Normal affect, calm and cooperative. LINE: No evidence of infection Assessment & Plan Remarks IMPRESSION UTI Scrotal cellulitis Previous episode of urinary retention ESRD on HD T-- Hx prostate CA and previous prostatectomy RECOMMENDATION Continue Diflucan Continue Zosyn Follow C/S Monitor progress Gerda Arechiga MD May 14, 2018 14:34
--- NOTE | 2018-05-14 15:31 | HHI.PR ---
Subjective Remarks Patient had hemodialysis today, he has no complaint His friend were at the bedside He had questions about the course of the disease and what to do after discharge Objective Vitals Vital Signs Date Time Temp Pulse Resp B/P (MAP) Pulse Ox O2 Delivery O2 Flow Rate FiO2 05/14/18 12:00 98.7 68 18 98/51 (67) 99 05/14/18 08:00 98.0 74 18 133/62 (85) 98 05/14/18 04:53 98.1 78 18 128/59 (82) 98 05/14/18 04:13 78 05/14/18 00:21 77 05/14/18 00:10 98.2 77 17 115/55 (75) 97 05/13/18 20:21 98.0 80 18 122/56 (78) 99 05/13/18 20:07 77 05/13/18 16:00 98.0 78 18 115/78 (90) 99 I/O 05/13/18 05/13/18 05/13/18 05/14/18 05/14/18 05/14/18 06:59 14:59 22:59 06:59 14:59 22:59 Intake Total 60 ml 1350 ml 630 ml 50 ml Output Total 300 ml Balance -240 ml 1350 ml 630 ml 50 ml Intake Oral 60 ml 1300 ml 580 ml IV Total 50 ml 50 ml 50 ml Output Urine Total 300 ml # Voids 1 5 1 2 # Bowel Movements 0 0 Result Diagram: 05/14/18 0746 05/13/18 0438 Objective Remarks GENERAL: This is a well-nourished, well-developed patient, in no apparent distress. CARDIOVASCULAR: RRR, no gallops, or rubs. RESPIRATORY: Fair air entry bilaterally. No W, R, or R GASTROINTESTINAL: Abdomen soft, non-tender, nondistended. Positive bowel sounds MUSCULOSKELETAL: Extremities without clubbing, cyanosis, or edema. Pedal pulses appreciated NEUROLOGICAL: Awake and alert. Moves all extremity. Normal speech.no focal neurological deficit A/P Problem List: (1) Sepsis ICD Code: A41.9 - Sepsis, unspecified organism Status: Acute (2) Cellulitis of scrotum ICD Code: N49.2 - Inflammatory disorders of scrotum Status: Acute (3) ESRD on hemodialysis ICD Code: N18.6 - End stage renal disease; Z99.2 - Dependence on renal dialysis Status: Chronic (4) Status post cystoscopy ICD Code: Z98.89 - Other specified postprocedural states Status: Resolved (5) Hypertension ICD Code: I10 - Essential (primary) hypertension Status: Chronic (6) HTN (hypertension) ICD Code: I10 - Essential (primary) hypertension Status: Acute Assessment and Plan 82 years old male admitted with Sepsis with leukocytosis tachycardia and hypertension Urinary retention in the past Scrotal cellulitis ESRD patient on hemodialysis History prostate cancer status post mastectomy DVT prophylaxis with SCD and heparin Plan: Continue IV antibiotics per ID, Zosyn and Diflucan Bladder scan ordered today Appreciate ID consultation, appreciate their input Consult nephrology for hemodialysis Consult urology for urinary retention, appreciate their input consultation reviewed 05/14: Continue current care with IV antibiotic, will follow ID recommendation Salomon Jackson MD May 14, 2018 15:30
--- NOTE | 2018-05-14 15:54 | HHI.NPPN ---
Subjective History of Present Illness This patient is an 82-year-old male known to me as an outpatient. He has a history of end-stage renal disease on maintenance hemodialysis Thursday and Thursday. He also has a history of obstructive uropathy with previous bilateral ureteral stents. According to the history obtained the patient developed urinary tract infection and the ureteral stents which are usually changed intermittently were removed by urology in view of the infection. According to the patient he subsequently developed obstructive symptoms and was seen in the emergency room where a Michaels catheter was placed I believe on May 06. Subsequently noted swelling of his scrotum and presents to the emergency room. Subsequently has been diagnosed as having cellulitis of the scrotum. Presently denying any shortness of breath at time of consultation. Interval History Patient was seen during dialysis today. Tolerating his treatment well. He was encouraged to increase his nutritional intake as he does appear to be experiencing some weight loss. Otherwise no verbal complaints. Objective Data Data 05/14/18 05/15/18 19:00 07:00 Intake Total 50 ml Balance 50 ml IV Total 50 ml # Voids 2 Vital Signs Date Time Temp Pulse Resp B/P (MAP) Pulse Ox O2 Delivery O2 Flow Rate FiO2 05/14/18 12:00 98.7 68 18 98/51 (67) 99 05/14/18 08:00 98.0 74 18 133/62 (85) 98 05/14/18 04:53 98.1 78 18 128/59 (82) 98 05/14/18 04:13 78 05/14/18 00:21 77 05/14/18 00:10 98.2 77 17 115/55 (75) 97 05/13/18 20:21 98.0 80 18 122/56 (78) 99 05/13/18 20:07 77 05/13/18 16:00 98.0 78 18 115/78 (90) 99 -: 05/14/18 0746 05/13/18 0438 Physical Exam General Appearance: No Acute Distress, Comfortable Eyes Eye Exam: Sclera White Pulmonary Resp Exam: Clear Bilaterally, Breath Sounds Equal, No Distress Cardiology CV Exam: Regular, Normal Sinus Rhythm, Good Perfusion Gastrointestinal/Abdomen GI Exam: Soft, Non-Tender Integumentary Skin Exam: Clear, Warm, Normal Turgor Assessment/Plan Discussed Condition With: Patient Problem List: (1) ESRD on hemodialysis ICD Codes: N18.6 - End stage renal disease; Z99.2 - Dependence on renal dialysis Status: Chronic Plan: Patient stable during dialysis. Next dialysis treatment will be Thursday to keep the patient on a Thursday schedule as per outpatient. Medication should be adjusted for the patient's end-stage renal disease when indicated. Avoid gadolinium. (2) Benign hypertension ICD Codes: I10 - Essential (primary) hypertension Status: Chronic (3) Anemia of renal disease ICD Codes: D63.1 - Anemia in chronic kidney disease Plan: Continue Epogen for anemia of renal disease. Check iron stores. Piyush Jha MD May 14, 2018 15:54
[2018-05-14] MEDS: EPOETIN ALFA 10,000 UNITS/ML VIAL IV PUSH PRN (17:27)
[2018-05-14] MEDS: SODIUM CHLOR 0.9% 1000 ML INJ 1,000 ML OTHER PRN (17:28)
[2018-05-14] MEDS: LATANOPROST 0.005% OPHT SOLN 2.5 ML BTL EACH EYE SCH (19:25)
[2018-05-14] MEDS: ENOXAPARIN SODIUM 30 MG/0.3 ML SYRINGE SQ SCH (19:26)
[2018-05-15] VITALS (12 sets, daily range): BP systolic 74–116; BP diastolic 42–63; PULSE 77–99; RESP 16–20; TEMP 97.6–98.4; O2SAT 97–99
[2018-05-15] MEDS: PIPERACIL-TAZO 2.25 GM PREMIX 50 ML IV SCH ×3 (04:41→20:05)
[2018-05-15] MEDS: LISINOPRIL 20 MG TAB PO SCH ×2 (09:00→13:35)
[2018-05-15] MEDS: amLODIPine BESYLATE 5 MG TAB PO SCH ×2 (09:00→13:35)
[2018-05-15] MEDS: EPOETIN ALFA 10,000 UNITS/ML VIAL IV PUSH PRN (10:23)
[2018-05-15] MEDS: SODIUM CHLOR 0.9% 1000 ML INJ 1,000 ML OTHER PRN (10:24)
--- NOTE | 2018-05-15 13:11 | HHI.NPPN ---
Subjective History of Present Illness This patient is an 82-year-old male known to me as an outpatient. He has a history of end-stage renal disease on maintenance hemodialysis Thursday and Thursday. He also has a history of obstructive uropathy with previous bilateral ureteral stents. According to the history obtained the patient developed urinary tract infection and the ureteral stents which are usually changed intermittently were removed by urology in view of the infection. According to the patient he subsequently developed obstructive symptoms and was seen in the emergency room where a Michaels catheter was placed I believe on May 06. Subsequently noted swelling of his scrotum and presents to the emergency room. Subsequently has been diagnosed as having cellulitis of the scrotum. Presently denying any shortness of breath at time of consultation. Interval History Patient was seen post dialysis today. He was in good spirits with no verbal complaints. Objective Data Data Vital Signs Date Time Temp Pulse Resp B/P (MAP) Pulse Ox O2 Delivery O2 Flow Rate FiO2 05/15/18 08:00 97.8 78 17 116/56 (76) 99 05/15/18 04:18 97.8 78 18 108/53 (71) 98 05/15/18 04:13 78 05/15/18 00:05 78 05/15/18 00:04 98.4 81 16 102/51 (68) 98 05/14/18 20:33 82 05/14/18 20:16 98.0 92 17 106/57 (73) 96 -: 05/14/18 0746 05/13/18 0438 Physical Exam General Appearance: No Acute Distress, Comfortable Eyes Eye Exam: Sclera White Pulmonary Resp Exam: Clear Bilaterally, Breath Sounds Equal, No Distress Cardiology CV Exam: Regular, Normal Sinus Rhythm, Good Perfusion Gastrointestinal/Abdomen GI Exam: Soft, Non-Tender Integumentary Skin Exam: Clear, Warm, Normal Turgor Assessment/Plan Discussed Condition With: Patient Problem List: (1) ESRD on hemodialysis ICD Codes: N18.6 - End stage renal disease; Z99.2 - Dependence on renal dialysis Status: Chronic Plan: Patient tolerated his hemodialysis. Next dialysis treatment will be next Thursday to keep the patient on a Thursday and Thursday schedule as per outpatient. Patient will be seen Thursday unless otherwise indicated. Medication should be adjusted for the patient's end-stage renal disease when indicated. Avoid gadolinium. (2) Benign hypertension ICD Codes: I10 - Essential (primary) hypertension Status: Chronic (3) Anemia of renal disease ICD Codes: D63.1 - Anemia in chronic kidney disease Plan: Continue Epogen for anemia of renal disease. Check iron stores. Piyush Jha MD May 15, 2018 13:11
[2018-05-15] MEDS: FAMOTIDINE 20 MG TAB PO SCH ×2 (13:33→20:06)
[2018-05-15] MEDS: SODIUM BICARBONATE 325 MG TAB PO SCH (13:34)
[2018-05-15] MEDS: DOCUSATE SODIUM 50 MG/SENNA 8.6 MG TAB PO SCH ×2 (13:34→20:06)
[2018-05-15] MEDS: SODIUM CHLORIDE 0.9% FLUSH 10 ML FLUSH IV FLUSH SCH ×2 (13:34→20:06)
[2018-05-15] MEDS: FLUCONAZOLE 100 MG TAB PO SCH (13:34)
[2018-05-15] MEDS: ASPIRIN 81 MG CHEW TAB CHEW SCH (13:34)
[2018-05-15] MEDS: BRIMONIDINE TARTRATE 0.2% OPHT SOLN 5 ML BTL EACH EYE SCH ×2 (13:36→20:04)
[2018-05-15] MEDS: TIMOLOL MALEATE 0.5% OPHT SOLN 5 ML BTL EACH EYE SCH ×2 (13:36→20:04)
--- NOTE | 2018-05-15 15:54 | HHI.PR ---
Subjective Remarks No acute issue getting dialysis Afebrile Objective Vitals Vital Signs Date Time Temp Pulse Resp B/P (MAP) Pulse Ox O2 Delivery O2 Flow Rate FiO2 05/15/18 13:53 98.2 99 20 109/62 (78) 97 05/15/18 12:00 98 05/15/18 08:00 81 05/15/18 08:00 97.8 78 17 116/56 (76) 99 05/15/18 04:18 97.8 78 18 108/53 (71) 98 05/15/18 04:13 78 05/15/18 00:05 78 05/15/18 00:04 98.4 81 16 102/51 (68) 98 05/14/18 20:33 82 05/14/18 20:16 98.0 92 17 106/57 (73) 96 I/O 05/14/18 05/14/18 05/14/18 05/15/18 05/15/18 05/15/18 07:00 15:00 23:00 07:00 15:00 23:00 Intake Total 630 ml 50 ml 670 ml 430 ml Output Total 2500 ml 1500 ml Balance 630 ml 50 ml -1830 ml 430 ml -1500 ml Intake Oral 580 ml 620 ml 380 ml IV Total 50 ml 50 ml 50 ml 50 ml Hemodialysis 2500 ml 1500 ml # Voids 1 2 0 1 # Bowel Movements 0 0 Result Diagram: 05/14/18 0746 05/13/18 0438 Objective Remarks GENERAL: This is a well-nourished, well-developed patient, in no apparent distress. CARDIOVASCULAR: RRR, no gallops, or rubs. RESPIRATORY: Fair air entry bilaterally. No W, R, or R GASTROINTESTINAL: Abdomen soft, non-tender, nondistended. Positive bowel sounds MUSCULOSKELETAL: Extremities without clubbing, cyanosis, or edema. Pedal pulses appreciated NEUROLOGICAL: Awake and alert. Moves all extremity. Normal speech.no focal neurological deficit A/P Problem List: (1) Sepsis ICD Code: A41.9 - Sepsis, unspecified organism Status: Acute (2) Cellulitis of scrotum ICD Code: N49.2 - Inflammatory disorders of scrotum Status: Acute (3) ESRD on hemodialysis ICD Code: N18.6 - End stage renal disease; Z99.2 - Dependence on renal dialysis Status: Chronic (4) Status post cystoscopy ICD Code: Z98.89 - Other specified postprocedural states Status: Resolved (5) Hypertension ICD Code: I10 - Essential (primary) hypertension Status: Chronic (6) HTN (hypertension) ICD Code: I10 - Essential (primary) hypertension Status: Acute Assessment and Plan 82 years old male admitted with Sepsis with leukocytosis tachycardia and hypertension Urinary retention in the past Scrotal cellulitis ESRD patient on hemodialysis History prostate cancer status post mastectomy DVT prophylaxis with SCD and heparin Plan: Continue IV antibiotics per ID, Zosyn and Diflucan Bladder scan ordered today Appreciate ID consultation, appreciate their input Consult nephrology for hemodialysis Consult urology for urinary retention, appreciate their input consultation reviewed 05/14: Continue current care with IV antibiotic, will follow ID recommendation 05/15: Getting dialysis, continue current care with IV antibiotic, ID following, monitor BMP Salomon Jackson MD May 15, 2018 15:54
[2018-05-15] MEDS: LATANOPROST 0.005% OPHT SOLN 2.5 ML BTL EACH EYE SCH (20:05)
[2018-05-15] MEDS: ENOXAPARIN SODIUM 30 MG/0.3 ML SYRINGE SQ SCH (20:06)
[2018-05-16] VITALS (10 sets, daily range): BP systolic 91–105; BP diastolic 50–58; PULSE 69–81; RESP 16–20; TEMP 97.3–98.2; O2SAT 97–99
[2018-05-16] MEDS: PIPERACIL-TAZO 2.25 GM PREMIX 50 ML IV SCH ×3 (04:06→20:13)
[2018-05-16] MEDS: amLODIPine BESYLATE 5 MG TAB PO SCH (09:00)
[2018-05-16] MEDS: SODIUM CHLORIDE 0.9% FLUSH 10 ML FLUSH IV FLUSH SCH ×2 (09:00→20:21)
[2018-05-16] MEDS: LISINOPRIL 20 MG TAB PO SCH (09:00)
[2018-05-16] MEDS: TIMOLOL MALEATE 0.5% OPHT SOLN 5 ML BTL EACH EYE SCH ×2 (09:30→20:13)
[2018-05-16] MEDS: BRIMONIDINE TARTRATE 0.2% OPHT SOLN 5 ML BTL EACH EYE SCH ×2 (09:30→20:13)
[2018-05-16] MEDS: FAMOTIDINE 20 MG TAB PO SCH ×2 (09:32→20:12)
[2018-05-16] MEDS: ASPIRIN 81 MG CHEW TAB CHEW SCH (09:32)
[2018-05-16] MEDS: FLUCONAZOLE 100 MG TAB PO SCH (09:32)
[2018-05-16] MEDS: DOCUSATE SODIUM 50 MG/SENNA 8.6 MG TAB PO SCH ×2 (09:32→20:12)
[2018-05-16] MEDS: SODIUM BICARBONATE 325 MG TAB PO SCH (09:32)
--- NOTE | 2018-05-16 16:41 | HHI.PR ---
Subjective Remarks Patient reported feeling burning when the urine comes out His last urine culture showed normal jade despite UA was positive for infection I will repeat UA patient is on Zosyn, ID following Objective Vitals Vital Signs Date Time Temp Pulse Resp B/P (MAP) Pulse Ox O2 Delivery O2 Flow Rate FiO2 05/16/18 12:00 97.5 72 16 95/53 (67) 99 05/16/18 08:00 97.7 80 16 104/58 (73) 98 05/16/18 04:00 97.9 74 20 103/57 (72) 99 05/16/18 03:12 69 05/16/18 00:03 73 05/16/18 00:00 98.0 73 20 91/50 (64) 97 05/15/18 20:00 97.6 80 20 83/45 (58) 98 05/15/18 19:38 80 05/15/18 17:12 88/63 (71) I/O 05/15/18 05/15/18 05/15/18 05/16/18 05/16/18 05/16/18 07:00 15:00 23:00 07:00 15:00 23:00 Intake Total 430 ml 50 ml 370 ml Output Total 1500 ml Balance 430 ml -1500 ml 50 ml 370 ml Intake Oral 380 ml 320 ml IV Total 50 ml 50 ml 50 ml Hemodialysis 1500 ml # Voids 1 1 # Bowel Movements 0 Result Diagram: 05/14/18 0746 05/13/18 0438 Objective Remarks GENERAL: This is a well-nourished, well-developed patient, in no apparent distress. CARDIOVASCULAR: RRR, no gallops, or rubs. RESPIRATORY: Fair air entry bilaterally. No W, R, or R GASTROINTESTINAL: Abdomen soft, non-tender, nondistended. Positive bowel sounds MUSCULOSKELETAL: Extremities without clubbing, cyanosis, or edema. Pedal pulses appreciated NEUROLOGICAL: Awake and alert. Moves all extremity. Normal speech.no focal neurological deficit A/P Problem List: (1) Sepsis ICD Code: A41.9 - Sepsis, unspecified organism Status: Acute (2) Cellulitis of scrotum ICD Code: N49.2 - Inflammatory disorders of scrotum Status: Acute (3) ESRD on hemodialysis ICD Code: N18.6 - End stage renal disease; Z99.2 - Dependence on renal dialysis Status: Chronic (4) Status post cystoscopy ICD Code: Z98.89 - Other specified postprocedural states Status: Resolved (5) Hypertension ICD Code: I10 - Essential (primary) hypertension Status: Chronic (6) HTN (hypertension) ICD Code: I10 - Essential (primary) hypertension Status: Acute Assessment and Plan 82 years old male admitted with Sepsis with leukocytosis tachycardia and hypertension Urinary retention in the past Scrotal cellulitis ESRD patient on hemodialysis History prostate cancer status post mastectomy DVT prophylaxis with SCD and heparin Plan: Continue IV antibiotics per ID, Zosyn and Diflucan Bladder scan ordered today Appreciate ID consultation, appreciate their input Consult nephrology for hemodialysis Consult urology for urinary retention, appreciate their input consultation reviewed 05/14: Continue current care with IV antibiotic, will follow ID recommendation 05/15: Getting dialysis, continue current care with IV antibiotic, ID following, monitor BMP 05/16: Dialysis for tomorrow, dysuria reported, check UA, ID following he is on Zosyn and Diflucan Salomon Jackson MD May 16, 2018 16:41
[2018-05-16] MEDS: ENOXAPARIN SODIUM 30 MG/0.3 ML SYRINGE SQ SCH (20:13)
[2018-05-16] MEDS: LATANOPROST 0.005% OPHT SOLN 2.5 ML BTL EACH EYE SCH (20:13)
[2018-05-16 23:03] LABS: BACTERIA, URINE FEW /hpf; BILIRUBIN, URINE NEG (NEG); BLOOD, URINE MOD (NEG); GLUCOSE,URINE NEG (NEG); KETONE, URINE NEG (NEG); NITRITE,URINE NEG (NEG); URINE COLOR YELLOW (YELLW/STRAW); URINE LEUKOCYTE ESTERASE LARGE (NEG); WHITE BLOOD CELL CLUMPS MANY
[2018-05-17] VITALS (7 sets, daily range): BP systolic 87–109; BP diastolic 51–66; PULSE 73–81; RESP 16–18; TEMP 97.6–98.2; O2SAT 96–98
[2018-05-17] MEDS: PIPERACIL-TAZO 2.25 GM PREMIX 50 ML IV SCH (05:58)
[2018-05-17] MEDS: LISINOPRIL 20 MG TAB PO SCH (09:00)
[2018-05-17] MEDS: amLODIPine BESYLATE 5 MG TAB PO SCH (09:00)
[2018-05-17 09:20] LABS: AUTOMATED NEUTROPHIL # 9.6 TH/MM3 (1.8-7.7); BASOPHIL # 0.1 TH/MM3 (0-0.2); BASOPHIL % 0.8 % (0.0-2.0); EOSINOPHIL # 0.2 TH/MM3 (0-0.4); EOSINOPHIL % 1.9 % (0.0-4.0); HEMATOCRIT 25.3 % (39.0-51.0); HEMOGLOBIN 8.7 GM/DL (13.0-17.0); LYMPH % 15.8 % (9.0-44.0); MEAN CELL VOLUME 93.9 FL (80.0-100.0); MEAN CORPUSCULAR HEMOGLOBIN 32.3 PG (27.0-34.0); MEAN CORPUSCULAR HGB CONC 34.4 % (32.0-36.0); MEAN PLATELET VOLUME 7.4 FL (7.0-11.0); MONO % 6.3 % (0.0-8.0); MONOCYTE # 0.8 TH/MM3 (0-0.9); NEUT % 75.2 % (16.0-70.0); PLATELET COUNT 230 TH/MM3 (150-450); RED CELL DISTRIBUTION WIDTH 18.5 % (11.6-17.2); WHITE BLOOD COUNT 12.8 TH/MM3 (4.0-11.0)
[2018-05-17 09:45] LABS: BICARBONATE 27.2 MEQ/L (21.0-32.0); CALCIUM 8.9 MG/DL (8.5-10.1); CREATININE 6.55 MG/DL (0.60-1.30)
[2018-05-17] MEDS: TIMOLOL MALEATE 0.5% OPHT SOLN 5 ML BTL EACH EYE SCH (09:45)
[2018-05-17] MEDS: BRIMONIDINE TARTRATE 0.2% OPHT SOLN 5 ML BTL EACH EYE SCH (09:45)
[2018-05-17] MEDS: FLUCONAZOLE 100 MG TAB PO SCH (09:46)
[2018-05-17] MEDS: FAMOTIDINE 20 MG TAB PO SCH (09:47)
[2018-05-17] MEDS: SODIUM CHLORIDE 0.9% FLUSH 10 ML FLUSH IV FLUSH SCH (09:47)
[2018-05-17] MEDS: SODIUM BICARBONATE 325 MG TAB PO SCH (09:47)
[2018-05-17] MEDS: DOCUSATE SODIUM 50 MG/SENNA 8.6 MG TAB PO SCH (09:47)
[2018-05-17] MEDS: ASPIRIN 81 MG CHEW TAB CHEW SCH (09:47)
--- NOTE | 2018-05-17 11:36 | HHI.IDPN ---
Subjective Subjective Remarks Patient is an 82-year-old male, brought to the hospital per advice by his urologist, for evaluation of scrotal swelling and redness. Patient has had prior problem with UTI. He had required stent placement which according to the patient he had for about 6 months, and it was removed in the last month. Patient has a urinary sphincter placed for urinary incontinence, and when the stent was removed the sphincter was turned off. Last April for he had problem with difficulty urinating, and went to the emergency room. A Michaels catheter was placed at that time and he was told to follow-up with his urologist. There was a urine culture done at that time that grew Dorie albicans. He was discharged from the emergency room then on doxycycline. Patient was seen in the urologists office and was checked out, and the catheter was left in place. He was instructed to come back on the day of admission and he did that in the morning, and the catheter was removed that morning. He went back to the urologist office that same afternoon, and it was noted that his scrotum was swollen and somewhat red. Patient has been having problem with some discomfort in that area but has not really looked at it. He has not had any fever chills or sweats. Denies any nausea and vomiting. Patient is incontinent currently since his sphincter has been turned off. He has ESRD, and has been on hemodialysis since around December, and gets dialyzed Thursday, , and Saturdays. When he came in his white count was elevated at 19,000. He has been afebrile. As I mentioned he is incontinent. CT of the abdomen and pelvis did not show any hydronephrosis. Infectious disease consultation has been requested to evaluate the patient. Notes reviewed No fever Pain better BC negative UC mixed jade SCrotum US with diffuse soft tissue swelling Antibiotics Current Medications Medications (Trade) Dose Ordered Sig/Rahel Route Start Time Stop Time Status Last Admin (NS Flush) 2 ml UNSCH PRN IV FLUSH 05/12/18 20:30 (NS Flush) 2 ml BID IV FLUSH 05/12/18 21:00 05/17/18 09:47 (Tylenol) 650 mg Q4H PRN PO 05/12/18 20:30 (Lovenox Inj) 30 mg Q24H SQ 05/12/18 21:00 6/17/18 20:13 (Narcan Inj) 0.4 mg UNSCH PRN IV PUSH 05/12/18 20:30 (Elizabeth-Colace) 1 tab BID PO 05/12/18 21:00 05/17/18 09:47 (Milk Of Magnesia Liq) 30 ml Q12H PRN PO 05/12/18 20:30 (Senokot) 17.2 mg Q12H PRN PO 05/12/18 20:30 (Dulcolax Supp) 10 mg DAILY PRN RECTAL 05/12/18 20:30 (Lactulose Liq) 30 ml DAILY PRN PO 05/12/18 20:30 (Norvasc) 5 mg DAILY PO 05/13/18 09:00 (Aspirin Chew) 81 mg DAILY CHEW 05/13/18 09:00 05/17/18 09:47 (Prinivil) 20 mg DAILY PO 05/13/18 09:00 (Xalatan 0.005% Opth Soln) 1 drop HS EACH EYE 05/12/18 21:00 05/16/18 20:13 (Sodium Bicarbonate) 325 mg DAILY PO 05/13/18 09:00 05/17/18 09:47 (Pepcid) 10 mg BID PO 05/13/18 09:00 05/17/18 09:47 (Alphagan 0.2% Opth Soln) 1 drop Q12HR EACH EYE 05/12/18 22:00 05/17/18 09:45 (Timoptic 0.5% Opth Soln) 1 drop Q12HR EACH EYE 05/12/18 22:00 05/17/18 09:45 (Pill Splitter) 1 ea UNSCH PRN OTHER 05/12/18 21:30 (Diflucan) 100 mg DAILY PO 05/13/18 12:00 05/17/18 09:46 Piperacillin Sod/ Tazobactam Sod 50 ml @ 100 mls/hr Q8H IV 05/13/18 13:00 05/17/18 05:58 Sodium Chloride 1,000 ml @ 0 mls/hr Q0M PRN OTHER 05/13/18 16:19 05/15/18 10:24 (Heparin Inj) 8,000 units UNSCH PRN IV FLUSH 05/13/18 16:30 Sodium Chloride 1,000 ml @ 200 mls/hr Q5H PRN IV 6/14/18 16:19 Sodium Chloride 1,000 ml @ 0 mls/hr Q0M PRN OTHER 05/13/18 16:19 Albumin Human 100 ml @ 60 mls/hr UNSCH PRN IV 05/13/18 16:30 (NS Flush) 5 ml UNSCH PRN IV FLUSH 05/13/18 16:30 (Zofran Inj) 4 mg UNSCH PRN IV PUSH 05/13/18 16:30 (Tylenol) 650 mg UNSCH PRN PO 05/13/18 16:30 (Benadryl) 25 mg UNSCH PRN PO 05/13/18 16:30 (Nitrostat Sl) 0.4 mg UNSCH PRN SL 05/13/18 16:30 (Catapres) 0.1 mg UNSCH PRN PO 05/13/18 16:30 (Epogen Inj) 8,000 units UNSCH PRN IV PUSH 05/13/18 16:30 05/15/18 10:23 (Gelfoam 12 Mm/7 Mm Top) 1 foam UNSCH PRN TOP 05/13/18 16:30 Lines PIV no evidence of infection Past Medical History Hypertension Prostate cancer Sleep apnea Anemia ESRD, on HD Past Surgical History Hernia Repair LUE AV Fistula Previous placement of ureteral stent, and has been removed Cataract Surgery Prostatectomy Uvulectomy Tonsillectomy Allergies: Coded Allergies: Sulfa (Sulfonamide Antibiotics) (Verified Allergy, Severe, Nausea/Vomiting , 05/12/18) *MDRO Multi-Drug Resistant Organism (Verified Adverse Reaction, Unknown, ) 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 Vital Signs Date Time Temp Pulse Resp B/P (MAP) Pulse Ox O2 Delivery O2 Flow Rate FiO2 05/17/18 08:00 97.6 80 17 105/58 (74) 97 05/17/18 04:00 97.9 80 18 108/57 (74) 97 05/17/18 02:00 103/55 (71) 05/17/18 00:00 97.9 76 16 87/51 (63) 96 6/17/18 23:59 73 05/16/18 20:00 98.2 79 16 105/54 (71) 97 05/16/18 19:10 80 05/16/18 16:00 97.3 81 16 104/57 (73) 98 05/16/18 12:00 72 05/16/18 12:00 97.5 72 16 95/53 (67) 99 . Laboratory Tests Test 05/17/18 08:13 White Blood Count 12.8 TH/MM3 Red Blood Count 2.70 MIL/MM3 Hemoglobin 8.7 GM/DL Hematocrit 25.3 % Mean Corpuscular Volume 93.9 FL Mean Corpuscular Hemoglobin 32.3 PG Mean Corpuscular Hemoglobin Concent 34.4 % Red Cell Distribution Width 18.5 % Platelet Count 230 TH/MM3 Mean Platelet Volume 7.4 FL Neutrophils (%) (Auto) 75.2 % Lymphocytes (%) (Auto) 15.8 % Monocytes (%) (Auto) 6.3 % Eosinophils (%) (Auto) 1.9 % Basophils (%) (Auto) 0.8 % Neutrophils # (Auto) 9.6 TH/MM3 Lymphocytes # (Auto) 2.0 TH/MM3 Monocytes # (Auto) 0.8 TH/MM3 Eosinophils # (Auto) 0.2 TH/MM3 Basophils # (Auto) 0.1 TH/MM3 CBC Comment DIFF FINAL Differential Comment Laboratory Tests Test 05/17/18 08:13 Blood Urea Nitrogen 54 MG/DL Creatinine 6.55 MG/DL Random Glucose 107 MG/DL Calcium Level 8.9 MG/DL Sodium Level 133 MEQ/L Potassium Level 3.3 MEQ/L Chloride Level 93 MEQ/L Carbon Dioxide Level 27.2 MEQ/L Anion Gap 13 MEQ/L Estimat Glomerular Filtration Rate 8 ML/MIN Microbiology Date/Time Source Procedure Growth Status 05/16/18 22:45 Urine Clean Catch Urine Culture Pending Received Imaging Last Impressions Scrotum Ultrasound 05/13/18 0000 Signed Impressions: CONCLUSION: 1. Diffuse scrotal soft tissue swelling. 2. Increased vascularity and soft tissue prominence posterior to the right hakeem ticle. 3. Small bilateral epididymal cyst. Abdomen/Pelvis CT 05/12/18 1546 Signed Impressions: Review of bone windows reveals degenerative changes.. CONCLUSION: 1. Multiple small gallstones 2. Urinary sphincter were decompressed bladder 3. No renal stone 4. Large hiatal hernia stable in the interval. 5. Renal stents have been removed. There is no hydronephrosis. Physical Exam GENERAL: awake and alert, not in respiratory distress. SKIN: Cool and dry. No generalized rash, no ecchymoses and no evidence of embolic lesions. HEAD: Atraumatic. Normocephalic. No temporal wasting, or tenderness. EYES: [place] conjunctiva. No petechia or hemorrhage. Pupils equal, round and reactive to light. Extraocular movements full and intact. No scleral icterus. No injection or drainage. EARS, NOSE AND THROAT: Nose without bleeding or purulent nasal discharge. No sinus tenderness. Mucous membranes pink and moist. No oral lesions noted. NECK: Trachea midline. Supple and not tender, no meningeal signs CARDIOVASCULAR: Regular rate and rhythm. No murmurs, rubs or gallops heard RESPIRATORY: Clear to auscultation. Breath sounds equal bilaterally. No rales , wheezing or rhonchi ABDOMEN: Soft, nondistended, has mild suprapubic tenderness. Bowel sounds present and normoactive. No guarding. No rebound. No organomegaly. : Incontinent of urine, scrotum firm and some mild swelling. Erythema resolved EXTREMITIES: No clubbing, cyanosis, or edema. No joint effusion, has good ROM. No calf tenderness. Well perfused and warm. NEUROLOGICAL: Non-focal PSYCHIATRIC: Normal affect, calm and cooperative. LINE: No evidence of infection Assessment & Plan Remarks IMPRESSION UTI Scrotal cellulitis Previous episode of urinary retention ESRD on HD T-Th- Hx prostate CA and previous prostatectomy RECOMMENDATION Continue Diflucan Continue Zosyn Follow C/S Monitor progress Gerda Arechiga MD May 17, 2018 11:36
--- NOTE | 2018-05-17 11:37 | HHI.NPPN ---
Subjective History of Present Illness This patient is an 82-year-old male known to me as an outpatient. He has a history of end-stage renal disease on maintenance hemodialysis Thursday and Thursday. He also has a history of obstructive uropathy with previous bilateral ureteral stents. According to the history obtained the patient developed urinary tract infection and the ureteral stents which are usually changed intermittently were removed by urology in view of the infection. According to the patient he subsequently developed obstructive symptoms and was seen in the emergency room where a Michaels catheter was placed I believe on May 06. Subsequently noted swelling of his scrotum and presents to the emergency room. Subsequently has been diagnosed as having cellulitis of the scrotum. Presently denying any shortness of breath at time of consultation. Interval History Patient with no verbal complaints. Objective Data Data Vital Signs Date Time Temp Pulse Resp B/P (MAP) Pulse Ox O2 Delivery O2 Flow Rate FiO2 05/17/18 08:00 97.6 80 17 105/58 (74) 97 05/17/18 04:00 97.9 80 18 108/57 (74) 97 05/17/18 02:00 103/55 (71) 05/17/18 00:00 97.9 76 16 87/51 (63) 96 05/16/18 23:59 73 05/16/18 20:00 98.2 79 16 105/54 (71) 97 05/16/18 19:10 80 05/16/18 16:00 97.3 81 16 104/57 (73) 98 05/16/18 12:00 72 05/16/18 12:00 97.5 72 16 95/53 (67) 99 -: 05/17/18 0813 05/17/18 0813 Microbiology 05/16/18 Urine Culture, Received Pending Physical Exam General Appearance: No Acute Distress, Comfortable Eyes Eye Exam: Sclera White Pulmonary Resp Exam: Clear Bilaterally, Breath Sounds Equal, No Distress Cardiology CV Exam: Regular, Normal Sinus Rhythm, Good Perfusion Gastrointestinal/Abdomen GI Exam: Soft, Non-Tender Integumentary Skin Exam: Clear, Warm, Normal Turgor Assessment/Plan Discussed Condition With: Patient Problem List: (1) ESRD on hemodialysis ICD Codes: N18.6 - End stage renal disease; Z99.2 - Dependence on renal dialysis Status: Chronic Plan: Next hemodialysis tomorrow. We will give a small dose of potassium chloride in view of low potassium level. Next dialysis treatment will be next Thursday to keep the patient on a Thursday and Thursday schedule as per outpatient. Cellulitis of scrotum appears to be improving clinically. Medication should be adjusted for the patient's end-stage renal disease when indicated. Avoid gadolinium. (2) Benign hypertension ICD Codes: I10 - Essential (primary) hypertension Status: Chronic (3) Anemia of renal disease ICD Codes: D63.1 - Anemia in chronic kidney disease Plan: Continue Epogen for anemia of renal disease. Check iron stores. Piyush Jha MD May 17, 2018 11:36
[2018-05-17] MEDS ORDERED: DIFL100T PO (11:43)
[2018-05-17] MEDS ORDERED: LEVA250T14 PO (11:43)
[2018-05-17] MEDS ORDERED: POTASSIUM CHLORIDE 10 MEQ CONTROLLED RELEASE TAB PO ONE (11:45)
[2018-05-17] MEDS ORDERED: LEVOFLOXACIN 250 MG TAB PO SCH (12:00)
--- NOTE | 2018-05-17 12:43 | HHI.PR ---
Subjective Remarks Patient concerned about his blood pressure being low I explained to him that with renal hemodialysis patient that can be a problem with extra fluid being removed He reported some dizziness on and off, I will give him of 2 50 cc of bolus, I asked nurse and PT to reassess his mobility to see if he needs to go to rehab Discussed with ID recommended switching to Levaquin for 10 days and Diflucan to continue another 5 days Objective Vitals Vital Signs Date Time Temp Pulse Resp B/P (MAP) Pulse Ox O2 Delivery O2 Flow Rate FiO2 05/17/18 12:00 98.0 73 17 91/54 (66) 97 05/17/18 08:00 97.6 80 17 105/58 (74) 97 05/17/18 04:00 97.9 80 18 108/57 (74) 97 05/17/18 02:00 103/55 (71) 05/17/18 00:00 97.9 76 16 87/51 (63) 96 05/16/18 23:59 73 05/16/18 20:00 98.2 79 16 105/54 (71) 97 05/16/18 19:10 80 05/16/18 16:00 97.3 81 16 104/57 (73) 98 I/O 05/16/18 05/16/18 05/16/18 05/17/18 05/17/18 05/17/18 07:00 15:00 23:00 07:00 15:00 23:00 Intake Total 370 ml 950 ml 290 ml Output Total 900 ml Balance 370 ml 50 ml 290 ml Intake Oral 320 ml 900 ml 240 ml IV Total 50 ml 50 ml 50 ml Output Urine Total 900 ml # Voids 1 2 # Bowel Movements 1 1 Result Diagram: 05/17/18 0813 05/17/18 08 Objective Remarks GENERAL: This is a well-nourished, well-developed patient, in no apparent distress. CARDIOVASCULAR: RRR, no gallops, or rubs. RESPIRATORY: Fair air entry bilaterally. No W, R, or R GASTROINTESTINAL: Abdomen soft, non-tender, nondistended. Positive bowel sounds MUSCULOSKELETAL: Extremities without clubbing, cyanosis, or edema. Pedal pulses appreciated NEUROLOGICAL: Awake and alert. Moves all extremity. Normal speech.no focal neurological deficit A/P Problem List: (1) Sepsis ICD Code: A41.9 - Sepsis, unspecified organism Status: Acute (2) Cellulitis of scrotum ICD Code: N49.2 - Inflammatory disorders of scrotum Status: Acute (3) ESRD on hemodialysis ICD Code: N18.6 - End stage renal disease; Z99.2 - Dependence on renal dialysis Status: Chronic (4) Status post cystoscopy ICD Code: Z98.89 - Other specified postprocedural states Status: Resolved (5) Hypertension ICD Code: I10 - Essential (primary) hypertension Status: Chronic (6) HTN (hypertension) ICD Code: I10 - Essential (primary) hypertension Status: Acute Assessment and Plan 82 years old male admitted with Sepsis with leukocytosis tachycardia and hypertension Urinary retention in the past Scrotal cellulitis ESRD patient on hemodialysis History prostate cancer status post mastectomy DVT prophylaxis with SCD and heparin Plan: Continue IV antibiotics per ID, Zosyn and Diflucan Bladder scan ordered today Appreciate ID consultation, appreciate their input Consult nephrology for hemodialysis Consult urology for urinary retention, appreciate their input consultation reviewed 05/14: Continue current care with IV antibiotic, will follow ID recommendation 05/15: Getting dialysis, continue current care with IV antibiotic, ID following, monitor BMP 05/16: Dialysis for tomorrow, dysuria reported, check UA, ID following he is on Zosyn and Diflucan 05/17: Patient concerned about having low blood pressure He reported some dizziness on and off, I will give him of 2 50 cc of bolus, I asked nurse and PT to reassess his mobility to see if he needs to go to rehab Discussed with ID recommended switching to Levaquin for 10 days and Diflucan to continue another 5 days Plan to discharge to SNF versus [facility] today Addendum: I was called by the nurse the PEG tube is clogged up, IR were consulted to review the function however they recommended total knee replacement so we will hold the discharge replace PEG tube hopefully discharge in a.m. Discharge Planning Hopefully tomorrow after replacing PEG tube Salomon Jackson MD May 17, 2018 12:43
[2018-05-17] MEDS ORDERED: SODI325T PO (15:08)
[2018-05-17] MEDS ORDERED: SODIUM CHLOR 0.9% 1000 ML INJ 1,000 ML IV ONE (15:15)
== END 2018-05-17 17:27 | DRG 871 ==
LOC: NEPC 15:22 → NEDA 17:39 → N07B 05-13 01:00
PROVIDERS: ADMIT Hospitalist; ATTEND Hospitalist
PROC: 5A1D70Z Performance of Urinary Filtration, Intermittent, Less than 6 Hours Per Day (ICD-10-PCS; principal; 2018-05-14)
DX: A41.9 Sepsis, unspecified organism (principal); I12.0 Hypertensive chronic kidney disease with stage 5 chronic kidney disease or end stage renal disease; N18.6 End stage renal disease; N25.81 Secondary hyperparathyroidism of renal origin; N39.0 Urinary tract infection, site not specified; D63.1 Anemia in chronic kidney disease; N49.2 Inflammatory disorders of scrotum; Z99.2 Dependence on renal dialysis; K80.20 Calculus of gallbladder without cholecystitis without obstruction; K44.9 Diaphragmatic hernia without obstruction or gangrene; K21.9 Gastro-esophageal reflux disease without esophagitis; R32 Unspecified urinary incontinence; G47.30 Sleep apnea, unspecified; Z90.79 Acquired absence of other genital organ(s); Z85.46 Personal history of malignant neoplasm of prostate
CPT/HCPCS: 74176; 76870; 80048; 80053; 81001; 83540; 83550; 83605; 85025; 85027; 87040; 87086; 90935; 93975; 96365; 96374; J1650; J2543; J3370; J7030; J7050; Q4081